=== PATIENT | female | born 1930 | race Caucasian/White ===

== ENCOUNTER 2016-09-08 09:55 | Inpatient (IN) | payer MEDICARE, OTHER ==
[2016-09-08] MEDS ORDERED: IPRATROPIUM-ALBUTEROL 3 ML NEB INHALATION STA (10:28)
--- NOTE | 2016-09-08 10:28 | ED ---
General Adult HPI - General Chief complaint: Shortness of Breath Stated complaint: CRISTAL Time Seen by Provider: 09/08/16 10:00 Source: patient, EMS, RN notes reviewed Mode of arrival: EMS Limitations: no limitations - History of Present Illness Initial comments: This is an 85-year-old female presents emergency department with past medical history significant for high blood pressure and coronary artery disease. Patient comes in today stating for the last week she's been short of breath. Patient states the shortness of breath gets worse when she lays flat. Patient states she's had no cough she's had no chest pain she denies any palpitations. Patient denies any recent fever or chills. Patient denies any abdominal pain patient denies nausea vomiting or diarrhea. Patient denies any back pain. Patient denies any leg swelling or calf pain. Patient denies any recent trips or travel. Patient denies any lightheadedness dizziness or near syncopal episode. - Related Data Home Medications Medication Instructions Recorded Confirmed Cetirizine HCl [Zyrtec] 10 mg PO HS 07/08/14 03/03/16 Ranitidine HCl [Zantac] 300 mg PO HS 07/08/14 03/03/16 Acetaminophen [Tylenol] 1,000 mg PO Q6H PRN 02/28/16 03/03/16 Omeprazole 40 mg PO PC-SUPPER 02/28/16 03/03/16 Previous Rx's Medication Instructions Recorded Aspirin 81 mg PO DAILY #30 chew 03/06/16 Atenolol [Tenormin] 25 mg PO BID #60 tab 03/06/16 Atorvastatin [Lipitor] 40 mg PO DAILY #30 tab 03/06/16 Clopidogrel [Plavix] 75 mg PO DAILY #30 tab 03/06/16 Lisinopril [Zestril] 10 mg PO HS #30 tab 03/06/16 Nitroglycerin Sl Tabs [Nitrostat] 0.4 mg SUBLINGUAL Q5M PRN #25 tab 03/06/16 amLODIPine [Norvasc] 10 mg PO DAILY #30 tab 03/06/16 Allergies Allergy/AdvReac Type Severity Reaction Status Date / Time soy Allergy Diarrhea Verified 09/08/16 10:03 Review of Systems ROS Statement: Those systems with pertinent positive or pertinent negative responses have been documented in the HPI. ROS Other: All systems not noted in ROS Statement are negative. Past Medical History Past Medical History: GERD/Reflux, Hypertension, Osteoarthritis (OA) Additional Past Medical History / Comment(s): Osteoarthritis spine and R hip-pt was scheduled for total R hip on 03/06/16, RT POSTERIOR HIP LIPOMA, SEASONAL ALLERGIES History of Any Multi-Drug Resistant Organisms: None Reported Past Surgical History: Appendectomy, Cholecystectomy, Heart Catheterization With Stent, Hernia Repair, Tonsillectomy Additional Past Surgical History / Comment(s): Pt states she had a cardiac stent about 15 yrs ago, LEFT BREAST benign BX, MALCOLM CATARACTS with lens implants , colonoscopy-normal, R inguinal hernia repairs. Past Anesthesia/Blood Transfusion Reactions: Postoperative Nausea & Vomiting ( PONV) Additional Past Anesthesia/Blood Transfusion Reaction / Comment(s): Pt now states that after cardiac stent she went into "shock". Date of Last Stent Placement:: 2000? Past Psychological History: No Psychological Hx Reported Additional Psychological History / Comment(s): Pt resides alone. She has a cane. She drives. Smoking Status: Former smoker Past Alcohol Use History: None Reported Additional Past Alcohol Use History / Comment(s): Pt started smoking in 1946 and quit in 1995. She smoked less than a ppd. Past Drug Use History: None Reported - Past Family History Mother Family Medical History: No Reported History Father Family Medical History: Myocardial Infarction ([place]) Additional Family Medical History / Comment(s): Father of a [place] at the age of 81 yrs. General Exam - General Exam Comments Initial Comments: GENERAL: Patient is well-developed and well-nourished. Patient is nontoxic and well- hydrated and is in mild distress. ENT: Neck is soft and supple. No significant lymphadenopathy is noted. Oropharynx is clear. Moist mucous membranes. Neck has full range of motion without eliciting any pain. EYES: The sclera were anicteric and conjunctiva were pink and moist. Extraocular movements were intact and pupils were equal round and reactive to light. Eyelids were unremarkable. PULMONARY: Patient has expiratory wheezing. CARDIOVASCULAR: There is a regular rate and rhythm without any murmurs gallops or rubs. ABDOMEN: Soft and nontender with normal bowel sounds. No palpable organomegaly was noted. There is no palpable pulsatile mass. SKIN: Skin is clear with no lesions or rashes and otherwise unremarkable. NEUROLOGIC: Patient is alert and oriented x3. Cranial nerves II through XII are grossly intact. Motor and sensory are also intact. Normal speech, volume and content. Symmetrical smile. MUSCULOSKELETAL: Normal extremities with adequate strength and full range of motion. No lower extremity swelling or edema. No calf tenderness. LYMPHATICS: No significant lymphadenopathy is noted PSYCHIATRIC: Normal psychiatric evaluation. Normal interpersonal interactions appears functionally intact in deals appropriately with others. No signs of depression. No signs of anxiety. Limitations: no limitations Course Vital Signs 09/08/16 09/08/16 09/08/16 10:00 10:18 11:00 Temperature 99.0 F Pulse Rate 76 74 Respiratory 18 18 Rate Blood Pressure 218/93 O2 Sat by Pulse 95 Oximetry 09/08/16 11:03 Temperature Pulse Rate 77 Respiratory 18 Rate Blood Pressure 213/91 O2 Sat by Pulse 92 L Oximetry Medical Decision Making - Medical Decision Making EKG shows normal sinus rhythm at 71 bpm OR interval is 176 QRS is 78 QT interval 418 QTC is 454. Patient's EKG shows no ST segment elevation or depression or T wave abnormalities are noted. Chest x-ray shows acute pulmonary edema. Gave the patient Lasix nitro paste. I gave the patient hydralazine for the blood pressure as well. - Lab Data Result diagrams: 09/08/16 10:15 09/08/16 10:15 Lab Results 09/08/16 09/08/16 09/08/16 Range/Units 10:15 10:15 10:15 WBC 6.2 (3.8-10.6) k/uL RBC 4.00 (3.80-5.40) m/uL Hgb 10.5 L (11.4-16.0) gm/dL Hct 34.0 (34.0-46.0) % MCV 85.0 (80.0-100.0) fL MCH 26.3 (25.0-35.0) pg MCHC 30.9 L (31.0-37.0) g/dL RDW 12.9 (11.5-15.5) % Plt Count 195 (150-450) k/uL Neutrophils % 72 % Lymphocytes % 17 % Monocytes % 6 % Eosinophils % 2 % Basophils % 0 % Neutrophils # 4.5 (1.3-7.7) k/uL Lymphocytes # 1.1 (1.0-4.8) k/uL Monocytes # 0.4 (0-1.0) k/uL Eosinophils # 0.1 (0-0.7) k/uL Basophils # 0.0 (0-0.2) k/uL Hypochromasia Moderate PT (9.0-12.0) sec INR (<1.1) APTT (22.0-30.0) sec D-Dimer (<0.60) mg/L FEU Sodium 143 (137-145) mmol/L Potassium 4.1 (3.5-5.1) mmol/L Chloride 108 H (98-107) mmol/L Carbon Dioxide 24 (22-30) mmol/L Anion Gap 11 mmol/L BUN 18 H (7-17) mg/dL Creatinine 1.06 H (0.52-1.04) mg/dL Est GFR (MDRD) Af Amer 59 (>60 ml/min/1.73 sqM) Est GFR (MDRD) Non-Af 49 (>60 ml/min/1.73 sqM) Glucose 93 (74-99) mg/dL Calcium 8.8 (8.4-10.2) mg/dL Magnesium 2.1 (1.6-2.3) mg/dL Total Bilirubin 0.6 (0.2-1.3) mg/dL AST 20 (14-36) U/L ALT 22 (9-52) U/L Alkaline Phosphatase 72 (38-126) U/L Total Creatine Kinase 55 (30-135) U/L CK-MB (CK-2) 0.9 (0.0-2.4) ng/mL CK-MB (CK-2) Rel Index 1.6 Troponin I <0.012 (0.000-0.034) ng/mL NT-Pro-B Natriuret Pep pg/mL Total Protein 6.4 (6.3-8.2) g/dL Albumin 3.7 (3.5-5.0) g/dL 09/08/16 09/08/16 Range/Units 10:15 10:15 WBC (3.8-10.6) k/uL RBC (3.80-5.40) m/uL Hgb (11.4-16.0) gm/dL Hct (34.0-46.0) % MCV (80.0-100.0) fL MCH (25.0-35.0) pg MCHC (31.0-37.0) g/dL RDW (11.5-15.5) % Plt Count (150-450) k/uL Neutrophils % % Lymphocytes % % Monocytes % % Eosinophils % % Basophils % % Neutrophils # (1.3-7.7) k/uL Lymphocytes # (1.0-4.8) k/uL Monocytes # (0-1.0) k/uL Eosinophils # (0-0.7) k/uL Basophils # (0-0.2) k/uL Hypochromasia PT 10.1 (9.0-12.0) sec INR 1.0 (<1.1) APTT 22.9 (22.0-30.0) sec D-Dimer 0.81 H (<0.60) mg/L FEU Sodium (137-145) mmol/L Potassium (3.5-5.1) mmol/L Chloride (98-107) mmol/L Carbon Dioxide (22-30) mmol/L Anion Gap mmol/L BUN (7-17) mg/dL Creatinine (0.52-1.04) mg/dL Est GFR (MDRD) Af Amer (>60 ml/min/1.73 sqM) Est GFR (MDRD) Non-Af (>60 ml/min/1.73 sqM) Glucose (74-99) mg/dL Calcium (8.4-10.2) mg/dL Magnesium (1.6-2.3) mg/dL Total Bilirubin (0.2-1.3) mg/dL AST (14-36) U/L ALT (9-52) U/L Alkaline Phosphatase (38-126) U/L Total Creatine Kinase (30-135) U/L CK-MB (CK-2) (0.0-2.4) ng/mL CK-MB (CK-2) Rel Index Troponin I (0.000-0.034) ng/mL NT-Pro-B Natriuret Pep 3400 pg/mL Total Protein (6.3-8.2) g/dL Albumin (3.5-5.0) g/dL Critical Care Time Critical Care Time: Yes Total Critical Care Time: 35 Disposition Clinical Impression: Hypertensive urgency, Acute pulmonary edema Disposition: ADMITTED IP TO THIS [facility] Time of Disposition: 11:39
[2016-09-08 10:45] LABS: Basophils % (A) 0 %; CH 25.9; CHCM 30.6; Eosinophils # (A) 0.1 k/uL (0-0.7); Eosinophils % (A) 2 %; HDW 2.91; HGB 10.5 gm/dL (11.4-16.0); Hypochromasia Moderate; Luc # (Auto) 0.17; Luc % (Auto) 3; Lymphocytes # (A) 1.1 k/uL (1.0-4.8); Lymphocytes % (A) 17 %; MCH 26.3 pg (25.0-35.0); MCHC 30.9 g/dL (31.0-37.0); Monocytes # (A) 0.4 k/uL (0-1.0); Monocytes % (A) 6 %; Neutrophils # (A) 4.5 k/uL (1.3-7.7); Neutrophils % (A) 72 %; RDW 12.9 % (11.5-15.5); WBC 6.2 k/uL (3.8-10.6); WBC (Perox) 6.71
[2016-09-08 10:53] LABS: Calcium 8.8 mg/dL (8.4-10.2); Magnesium 2.1 mg/dL (1.6-2.3); Potassium 4.1 mmol/L (3.5-5.1); Total Bilirubin 0.6 mg/dL (0.2-1.3); Total Protein 6.4 g/dL (6.3-8.2)
--- NOTE | 2016-09-08 10:54 | XR ---
EXAMINATION TYPE: XR chest 2V DATE OF EXAM: 09/08/2016 10:48 AM COMPARISON: 06/22/2012 HISTORY: Shortness of breath TECHNIQUE: Frontal and lateral views of the chest are obtained. FINDINGS: Scattered senescent parenchymal changes noted. Hyperinflation compatible with COPD. The heart is enlarged. There is pulmonary venous congestion with interstitial edema. Small effusions noted on the lateral projection. Mediastinal structures are stable and grossly unremarkable. No evidence for hilar prominence. Degenerative changes dorsal spine. IMPRESSION: 1. Mild congestive failure with interstitial edema
[2016-09-08 10:58] LABS: Partial Thromboplastin Time 22.9 sec (22.0-30.0); Prothrombin Time 10.1 sec (9.0-12.0)
[2016-09-08] MEDS ORDERED: hydrALAZINE HCL 20 MG/ML 1 ML VIAL IVP STA (11:00)
[2016-09-08 11:09] LABS: Creatine Kinase 55 U/L (30-135)
[2016-09-08 11:20] LABS: Creatine Kinase MB 0.9 ng/mL (0.0-2.4); Troponin I <0.012 ng/mL (0.000-0.034)
[2016-09-08] MEDS ORDERED: FUROSEMIDE 10 MG/ML 4 ML VIAL IV STA (11:38)
[2016-09-08] MEDS ORDERED: NITROGLYCERIN OINT 1 INCH/GM PACKET TOPICAL STA (11:38)
[2016-09-08] MEDS ORDERED: FUROSEMIDE 10 MG/ML 4 ML VIAL IV SCH (11:45)
[2016-09-08] MEDS ORDERED: ENALAPRILAT 1.25 MG/ML 1 ML VIAL IVP STA (11:46)
[2016-09-08] MEDS ORDERED: HYDROcodone/APAP 7.5-325MG 1 EACH TAB PO PRN (15:09)
[2016-09-08] MEDS ORDERED: ACETAMINOPHEN TAB 325 MG TAB PO PRN (15:10)
[2016-09-08] MEDS ORDERED: ONDANSETRON 4 MG/2 ML VIAL IVP PRN (15:10)
[2016-09-08] MEDS ORDERED: Potassium Replacement Protocol 1 EACH MISC MISCELLANE PRN (15:11)
[2016-09-08] MEDS ORDERED: Magnesium Replacement Protocol 1 EACH MISC MISCELLANE PRN (15:11)
[2016-09-08] MEDS ORDERED: amLODIPine 5 MG TAB PO SCH (16:00)
[2016-09-08] MEDS ORDERED: ASPIRIN 81 MG CHEW PO SCH (16:00)
--- NOTE | 2016-09-08 16:13 | P.HPIM ---
History of Present Illness H&P Date: 09/08/16 Chief Complaint: Shortness of breath This is a 85-year-old female with past medical history noted below significant for coronary artery disease, essential hypertension, and ischemic cardiomyopathy with known ejection fraction of 40% who presented to the emergency room with worsening shortness of breath. Patient said that for the past few days she is having difficulty breathing. She said that her problems get worse when she lay flat in bed. She denies any fevers or chills. no productive cough. No worsening lower extremity swelling. Patient called EMS and was brought to the emergency room. On presentation, she was found to have a systolic blood pressure greater than 200. She was given IV enalapril and a chest x-ray showed evidence of pulmonary congestion and edema. She was started on IV Lasix and was admitted to the hospital for further evaluation. Patient reports compliance with her blood pressure medication at home. She is currently taking atenolol 25 g twice daily. She said that she was told to stop amlodipine and lisinopril by her doctors since her last hospitalization in February. She denies any headache or lightheadedness. Last blood pressure reading was 136/90 awaiting the nurse to enter the number in the computer. Review of Systems Review of system: 14 points review of systems were obtained and were negative except to what were mentioned in the HPI. Past Medical History Past Medical History: GERD/Reflux, Hypertension, Osteoarthritis (OA) Additional Past Medical History / Comment(s): Osteoarthritis spine and R hip-pt was scheduled for total R hip on 03/06/16, RT POSTERIOR HIP LIPOMA, SEASONAL ALLERGIES History of Any Multi-Drug Resistant Organisms: None Reported Past Surgical History: Appendectomy, Cholecystectomy, Heart Catheterization With Stent, Hernia Repair, Tonsillectomy Additional Past Surgical History / Comment(s): Pt states she had a cardiac stent about 15 yrs ago, LEFT BREAST benign BX, MALCOLM CATARACTS with lens implants , colonoscopy-normal, R inguinal hernia repairs. Past Anesthesia/Blood Transfusion Reactions: Postoperative Nausea & Vomiting ( PONV) Additional Past Anesthesia/Blood Transfusion Reaction / Comment(s): Pt now states that after cardiac stent she went into "shock". Date of Last Stent Placement:: 2000? Past Psychological History: No Psychological Hx Reported Additional Psychological History / Comment(s): Pt resides alone. She has a cane. She drives. Smoking Status: Former smoker Past Alcohol Use History: None Reported Additional Past Alcohol Use History / Comment(s): Pt started smoking in 1946 and quit in 1995. She smoked less than a ppd. Past Drug Use History: None Reported - Past Family History Mother Family Medical History: No Reported History Father Family Medical History: Myocardial Infarction ([place]) Additional Family Medical History / Comment(s): Father of a [place] at the age of 81 yrs. Medications and Allergies Home Medications Medication Instructions Recorded Confirmed Type Cetirizine HCl [Zyrtec] 10 mg PO HS 07/08/14 09/08/16 History Ranitidine HCl [Zantac] 300 mg PO HS 07/08/14 09/08/16 History Atorvastatin [Lipitor] 40 mg PO HS 09/08/16 09/08/16 History HYDROcodone/APAP 7.5-325MG [[place] 1 tab PO BID PRN 09/08/16 09/08/16 History 7.5-325] Naproxen Sodium [Aleve] 220 mg PO DAILY 09/08/16 09/08/16 History Allergies Allergy/AdvReac Type Severity Reaction Status Date / Time soy Allergy Diarrhea Verified 09/08/16 12:14 Physical Exam Vitals: Vital Signs Temp Pulse Resp BP Pulse Ox 09/08/16 12:52 201/84 09/08/16 12:25 82 20 209/84 100 09/08/16 11:55 99.0 F 79 18 181/87 97 Intake and Output 09/08/16 09/08/16 09/08/16 06:59 14:59 22:59 Other: # Voids 1 General: The patient is awake and alert, in no distress, and does not appear acutely ill. Eye: extra-ocular movements are intact; there is normal conjunctiva bilaterally. . Neck: The neck is supple, there is no tenderness or JVD. Cardiovascular: Normal S1-S2, no S3-S4, no murmurs. Respiratory: Lungs with bibasilar crackles Gastrointestinal: Abdomen is soft, nontender, nondistended, with no organomegaly. . Musculoskeletal: Normal ROM, no tenderness, There is no pedal edema. Neurological: There are no obvious motor or sensory deficits. Speech is normal. Skin: Skin is warm and dry and no rashes or lesions are noted. Results CBC & Chem 7: 09/08/16 10:15 03/03/17 10:15 Assessment and Plan Plan: 1. Hypertensive urgency 2. Acute systolic heart failure exacerbation with known ejection fraction of 40 %. Continue IV Lasix. Monitor electrolytes closely. 3. Ischemic cardiomyopathy 4. Coronary artery disease 5. Essential hypertension: Blood pressure not well controlled 6. Mixed hyperlipidemia This is a 85-year-old female who presented to the hospital with worsening shortness of breath. She was found to have acute systolic heart failure exacerbation most likely precipitated by uncontrolled blood pressure. We will resume home blood pressure medication and continue to monitor closely. Continue IV diuresis for now. Monitor electrolytes closely. Repeat chest x- ray within the next day or 2. Patient was reassured. All her questions answered to her satisfaction.
[2016-09-08] MEDS: FUROSEMIDE 10 MG/ML 4 ML VIAL IV SCH (21:08)
[2016-09-08] MEDS: NITROGLYCERIN OINT 1 INCH/GM PACKET TOPICAL SCH ×2 (21:08→21:22)
[2016-09-08] MEDS: ATORVASTATIN 40 MG TAB PO SCH (21:08)
[2016-09-08] MEDS: ATENOLOL 25 MG TAB PO SCH (21:08)
[2016-09-08] MEDS: FAMOTIDINE 20 MG TAB PO SCH (21:08)
[2016-09-08] MEDS: HEPARIN SODIUM,PORCINE 5,000 UNIT/ML 1 ML VIAL SQ SCH (21:22)
[2016-09-08] MEDS ORDERED: NAPROXEN 250 MG TAB PO SCH (22:30)
[2016-09-09 06:34] LABS: Basophils % (A) 1 %; CH 26.4; CHCM 31.7; Eosinophils # (A) 0.1 k/uL (0-0.7); Eosinophils % (A) 1 %; HCT 30.9 % (34.0-46.0); HDW 2.91; HGB 9.8 gm/dL (11.4-16.0); Hypochromasia Slight; Luc # (Auto) 0.21; Luc % (Auto) 3; Lymphocytes # (A) 1.1 k/uL (1.0-4.8); Lymphocytes % (A) 17 %; MCH 26.6 pg (25.0-35.0); MCHC 31.8 g/dL (31.0-37.0); MCV 83.4 fL (80.0-100.0); Mean Platelet Volume 9.2; Monocytes # (A) 0.5 k/uL (0-1.0); Monocytes % (A) 8 %; Neutrophils # (A) 4.5 k/uL (1.3-7.7); Neutrophils % (A) 70 %; RDW 13.2 % (11.5-15.5); WBC 6.4 k/uL (3.8-10.6); WBC (Perox) 6.85
[2016-09-09 06:45] LABS: Calcium 9.1 mg/dL (8.4-10.2); Magnesium 1.9 mg/dL (1.6-2.3); Potassium 3.5 mmol/L (3.5-5.1)
[2016-09-09] MEDS ORDERED: NAPROXEN 250 MG TAB PO SCH (09:00)
[2016-09-09] MEDS: CLOPIDOGREL 75 MG TAB PO SCH (09:16)
[2016-09-09] MEDS: ASPIRIN 81 MG CHEW PO SCH (09:16)
[2016-09-09] MEDS: FUROSEMIDE 10 MG/ML 4 ML VIAL IV SCH (09:16)
[2016-09-09] MEDS: ATENOLOL 25 MG TAB PO SCH ×2 (09:16→21:23)
[2016-09-09] MEDS: HEPARIN SODIUM,PORCINE 5,000 UNIT/ML 1 ML VIAL SQ SCH ×2 (09:17→21:24)
[2016-09-09] MEDS: NITROGLYCERIN OINT 1 INCH/GM PACKET TOPICAL SCH ×4 (09:18→23:04)
--- NOTE | 2016-09-09 12:00 | P.CRDCN ---
History of Present Illness Consult date: 09/09/16 Requesting physician: Kory Ochoa Consult reason: shortness of breath Chief complaint: Shortness of breath History of present illness: This is a pleasant 85-year-old female who follows with Dr. Carter in the office, with known history of coronary artery disease, prior non-Q-wave myocardial infarction who underwent stenting of the LAD in February of last year at that time patient was also noted to have a 50-60% lesion in the right coronary artery. She has history also of hypertension, ischemic cardiomyopathy, echo performed in February of last year revealed an ejection fraction of 40-45%. Hyperlipidemia, GERD. She presents to the hospital with symptoms of sudden onset of shortness of breath. According to the patient, the shortness of breath awoke her from sleep yesterday morning. Prior to that she states that her breathing was relatively normal. Blood pressure on arrival here , 218/93, heart rate 76, temperature 99.0. Blood pressure this morning 138/68 with a heart rate of 60. Laboratory data, hemoglobin 9.8, platelet count 185, potassium 3.5, d-dimer 0.81, BUN 20, creatinine 1.3, up from 1.06 yesterday. BNP level 3400, troponin 0.012. S2 x-ray shows mild congestive heart failure with interstitial edema. EKG shows a normal sinus rhythm with no acute changes. Past Medical History Past Medical History: GERD/Reflux, Hypertension, Osteoarthritis (OA) Additional Past Medical History / Comment(s): Osteoarthritis spine and R hip-pt was scheduled for total R hip on 03/06/16, RT POSTERIOR HIP LIPOMA, SEASONAL ALLERGIES History of Any Multi-Drug Resistant Organisms: None Reported Past Surgical History: Appendectomy, Cholecystectomy, Heart Catheterization With Stent, Hernia Repair, Tonsillectomy Additional Past Surgical History / Comment(s): Pt states she had a cardiac stent about 15 yrs ago, LEFT BREAST benign BX, MALCOLM CATARACTS with lens implants , colonoscopy-normal, R inguinal hernia repairs. Past Anesthesia/Blood Transfusion Reactions: Postoperative Nausea & Vomiting ( PONV) Additional Past Anesthesia/Blood Transfusion Reaction / Comment(s): Pt now states that after cardiac stent she went into "shock". Date of Last Stent Placement:: 2000? Past Psychological History: No Psychological Hx Reported Additional Psychological History / Comment(s): Pt resides alone. She has a cane. She drives. Smoking Status: Former smoker Past Alcohol Use History: None Reported Additional Past Alcohol Use History / Comment(s): Pt started smoking in 1946 and quit in 1995. She smoked less than a ppd. Past Drug Use History: None Reported Additional Drug Use History / Comment(s): Smoked 30-40 years, quit 20 years ago - Past Family History Mother Family Medical History: No Reported History Father Family Medical History: Myocardial Infarction ([place]) Additional Family Medical History / Comment(s): Father of a [place] at the age of 81 yrs. Medications and Allergies Home Medications Medication Instructions Recorded Confirmed Type Cetirizine HCl [Zyrtec] 10 mg PO HS 07/08/14 09/08/16 History Ranitidine HCl [Zantac] 300 mg PO HS 07/08/14 09/08/16 History Atorvastatin [Lipitor] 40 mg PO HS 09/08/16 09/08/16 History HYDROcodone/APAP 7.5-325MG [[place] 1 tab PO BID PRN 09/08/16 09/08/16 History 7.5-325] Naproxen Sodium [Aleve] 220 mg PO DAILY 09/08/16 09/08/16 History Allergies Allergy/AdvReac Type Severity Reaction Status Date / Time soy Allergy Diarrhea Verified 09/08/16 12:14 Physical Exam Vitals: Vital Signs Temp Pulse Pulse Resp BP BP Pulse Ox 09/09/16 04:00 97.9 F 66 16 138/69 94 L 09/09/16 00:00 98.0 F 74 20 110/53 93 L 09/08/16 20:00 97.2 F L 76 20 164/68 92 L 09/08/16 15:54 137/61 09/08/16 12:52 201/84 09/08/16 12:25 82 20 209/84 100 09/08/16 12:09 97.9 F 91 18 137/61 98 09/08/16 11:55 99.0 F 79 18 181/87 97 Intake and Output 09/08/16 09/09/16 09/09/16 22:59 06:59 14:59 Intake Total 180 100 Output Total 1500 200 Balance 180 -1500 -100 Intake: Oral 180 100 Output: Urine 1500 200 Other: Voiding Method Toilet Toilet # Voids 4 1 Weight 56.9 kg PHYSICAL EXAMINATION: HEENT: Head is atraumatic, normocephalic. Pupils equal, round. Neck is supple. There is no elevated jugular venous pressure. HEART EXAMINATION: Heart S1 and S2 systolic murmur is heard CHEST EXAMINATION: Lungs are clear with mild diminished air entry to bilateral bases ABDOMEN: Soft, nontender. Bowel sounds are heard. No organomegaly noted. EXTREMITIES: 2+ peripheral pulses with no evidence of peripheral edema and no calf tenderness noted. NEUROLOGIC patient is awake, alert and oriented -3. . Results 09/09/16 05:46 09/09/16 05:44 CBC 09/09/16 Range/Units 05:46 WBC 6.4 (3.8-10.6) k/uL RBC 3.70 L (3.80-5.40) m/uL Hgb 9.8 L (11.4-16.0) gm/dL Hct 30.9 L (34.0-46.0) % Plt Count 185 (150-450) k/uL Comprehensive Metabolic Panel 09/09/16 Range/Units 05:44 Sodium 140 (137-145) mmol/L Potassium 3.5 (3.5-5.1) mmol/L Chloride 100 (98-107) mmol/L Carbon Dioxide 29 (22-30) mmol/L BUN 20 H (7-17) mg/dL Creatinine 1.30 H (0.52-1.04) mg/dL Glucose 94 (74-99) mg/dL Calcium 9.1 (8.4-10.2) mg/dL Current Medications Generic Name Dose Route Start Last Admin Trade Name Freq PRN Reason Stop Dose Admin Acetaminophen 650 mg 09/08/16 15:10 Tylenol Tab PO Q6HR PRN Fever and/ or Pain Hydrocodone Bitart/Acetaminophen 1 each 09/09/16 11:33 [place] 5-325 PO Q4HR PRN Pain Aspirin 81 mg 09/09/16 09:00 09/09/16 09:16 Aspirin PO 81 mg DAILY SANTANA Administration Atenolol 25 mg 09/08/16 21:00 09/09/16 09:16 Tenormin PO 25 mg BID SANTANA Administration Atorvastatin Calcium 40 mg 09/08/16 21:00 09/08/16 21:08 Lipitor PO 40 mg HS SANTANA Administration Clopidogrel Bisulfate 75 mg 09/09/16 09:00 09/09/16 09:16 Plavix PO 75 mg DAILY SANTANA Administration Famotidine 40 mg 09/08/16 21:00 09/08/16 21:08 Pepcid PO 40 mg HS SANTANA Administration Furosemide 20 mg 09/10/16 09:00 Lasix PO DAILY SANTANA Heparin Sodium (Porcine) 5,000 unit 09/08/16 21:00 09/09/16 09:17 Heparin SQ 5,000 unit Q12HR SANTANA Administration Miscellaneous Information 1 each 09/08/16 15:11 Magnesium Per Protocol MISCELLANE DAILY PRN Per Protocol Protocol Miscellaneous Information 1 each 09/08/16 15:11 Potassium Per Protocol MISCELLANE DAILY PRN Per Protocol Protocol Nitroglycerin 1 inch 09/08/16 18:00 09/09/16 09:18 Nitro-Bid Oint TOPICAL Not Given QID SANTANA Ondansetron HCl 4 mg 09/08/16 15:10 Zofran IVP Q6HR PRN Nausea And Vomiting Intake and Output 09/08/16 09/09/16 09/09/16 22:59 06:59 14:59 Intake Total 180 100 Output Total 1500 200 Balance 180 -1500 -100 Intake: Oral 180 100 Output: Urine 1500 200 Other: Voiding Method Toilet Toilet # Voids 4 1 Weight 56.9 kg 09/09/16 05:46 09/09/16 05:44 EKG Interpretations (text) EKG shows normal sinus rhythm with no acute changes Assessment and Plan Plan: Assessment and plan #1 Systolic congestive heart failure acute on chronic, most recent echocardiogram with Doppler study was performed in February of last year which revealed an ejection fraction of 40-45%. #2 hypertensive urgency #3 ischemic cardiomyopathy #4 known history of coronary artery disease with prior LAD stent in February of last year. # 5 hyperlipidemia #6 anemia Plan We will obtain an echocardiogram with Doppler study. Continue IV Lasix. Replace potassium. Monitor creatinine closely. Add small dose BENITO inhibitor. Discontinue IV BENITO inhibitor. Check lytes BUN creatinine CBC in the morning. Monitor intake and output along with daily weights. Further recommendations to follow DNP note has been reviewed, I agree with a documented findings and plan of care. Patient was seen and examined.
[2016-09-09] MEDS: FUROSEMIDE 10 MG/ML 2 ML VIAL IV SCH ×2 (12:20→21:24)
--- NOTE | 2016-09-09 13:12 | P.PN ---
Subjective Principal diagnosis: CHF exacerbation Patient is doing better today. Shortness of breath is improving. Objective - Vital Signs Vital signs: Vital Signs Temp 97.9 F 09/09/16 04:00 Pulse 66 09/09/16 04:00 Resp 18 09/09/16 04:00 BP 138/69 09/09/16 04:00 Pulse Ox 94 L 09/09/16 04:00 Intake & Output 09/08/16 09/09/16 09/09/16 18:59 06:59 18:59 Intake Total 180 100 Output Total 1500 400 Balance 180 -1500 -300 Weight 58.2 kg 56.9 kg Intake: Oral 180 100 Output: Urine 1500 400 Other: Voiding Method Toilet Toilet # Voids 4 1 - Exam General: The patient is awake and alert, in no distress Eye: there is normal conjunctiva bilaterally. Neck: The neck is supple, there is no JVD. Cardiovascular: Normal S1-S2, no S3-S4, no murmurs. Respiratory: Lungs clear to auscultation bilaterally Gastrointestinal: Abdomen is soft, nontender Musculoskeletal: There is no pedal edema. Neurological:. Speech is normal. Skin: Skin is warm and dry - Labs CBC & Chem 7: 09/09/16 05:46 09/09/16 05:44 Labs: Abnormal Lab Results - Last 24 Hours (Table) 09/09/16 09/09/16 Range/Units 05:44 05:46 RBC 3.70 L (3.80-5.40) m/uL Hgb 9.8 L (11.4-16.0) gm/dL Hct 30.9 L (34.0-46.0) % BUN 20 H (7-17) mg/dL Creatinine 1.30 H (0.52-1.04) mg/dL Assessment and Plan Plan: 1. Hypertensive urgency 2. Acute systolic heart failure exacerbation with known ejection fraction of 40 %. Continue IV Lasix. Monitor electrolytes closely. 3. Ischemic cardiomyopathy 4. Coronary artery disease 5. Essential hypertension: Blood pressure not well controlled 6. Mixed hyperlipidemia This is a 85-year-old female who presented to the hospital with worsening shortness of breath. She was found to have acute systolic heart failure exacerbation most likely precipitated by uncontrolled blood pressure. Blood pressure is back to normal range with home medication. Continue IV diuresis for now. Monitor electrolytes closely. Repeat chest x-ray for follow-up. Anticipate discharge in the next day or 2.
[2016-09-09 13:48] VITALS: BMI 22.9
[2016-09-09] MEDS ORDERED: Potassium Replacement Protocol 1 EACH MISC MISCELLANE PRN (21:15)
[2016-09-09] MEDS: ATORVASTATIN 40 MG TAB PO SCH (21:23)
[2016-09-09] MEDS: FAMOTIDINE 20 MG TAB PO SCH (21:24)
[2016-09-09] MEDS ORDERED: POTASSIUM CHLORIDE ER 20 MEQ TAB.ER PO SCH (22:00)
[2016-09-10 06:18] LABS: Basophils % (A) 1 %; CH 26.3; CHCM 31.3; Eosinophils # (A) 0.2 k/uL (0-0.7); Eosinophils % (A) 3 %; HCT 35.3 % (34.0-46.0); Hypochromasia Slight; Luc # (Auto) 0.21; Luc % (Auto) 4; Lymphocytes # (A) 1.4 k/uL (1.0-4.8); Lymphocytes % (A) 23 %; MCH 26.1 pg (25.0-35.0); MCV 84.2 fL (80.0-100.0); Mean Platelet Volume 8.5; Monocytes # (A) 0.5 k/uL (0-1.0); Monocytes % (A) 9 %; Neutrophils # (A) 3.7 k/uL (1.3-7.7); Neutrophils % (A) 62 %; WBC (Perox) 6.03
[2016-09-10 06:31] LABS: Calcium 9.4 mg/dL (8.4-10.2); Magnesium 1.9 mg/dL (1.6-2.3); Potassium 3.9 mmol/L (3.5-5.1)
[2016-09-10] MEDS ORDERED: LISINOPRIL 5 MG TAB PO SCH ×2 (09:00→12:00)
[2016-09-10] MEDS ORDERED: FUROSEMIDE 20 MG TAB PO SCH (09:00)
--- NOTE | 2016-09-10 09:02 | XR ---
EXAMINATION TYPE: XR chest 2V DATE OF EXAM: 09/10/2016 7:11 AM COMPARISON: NONE INDICATION: Difficulty breathing TECHNIQUE: Single frontal view of the chest is obtained. FINDINGS: The heart size is normal. The pulmonary vasculature is normal. This has improved from the comparison. Posterior pleural effusion is present IMPRESSION: 1. No acute pulmonary process. 2. Resolution previous pulmonary edema.
[2016-09-10] MEDS: ATENOLOL 25 MG TAB PO SCH ×2 (09:03→20:21)
[2016-09-10] MEDS: ASPIRIN 81 MG CHEW PO SCH (09:03)
[2016-09-10] MEDS: CLOPIDOGREL 75 MG TAB PO SCH (09:03)
[2016-09-10] MEDS: NITROGLYCERIN OINT 1 INCH/GM PACKET TOPICAL SCH ×4 (09:04→22:57)
[2016-09-10] MEDS: HEPARIN SODIUM,PORCINE 5,000 UNIT/ML 1 ML VIAL SQ SCH ×2 (09:04→20:21)
[2016-09-10] MEDS: FUROSEMIDE 10 MG/ML 2 ML VIAL IV SCH (09:26)
--- NOTE | 2016-09-10 12:57 | P.PN ---
Subjective Principal diagnosis: CHF exacerbation Patient is doing better today. Shortness of breath is improving. Objective - Vital Signs Vital signs: Vital Signs Temp 97.9 F 09/10/16 08:50 Pulse 65 09/10/16 08:50 Resp 18 09/10/16 08:50 BP 140/58 09/10/16 09:33 Pulse Ox 99 09/10/16 08:50 Intake & Output 09/09/16 09/10/16 09/10/16 18:59 06:59 18:59 Intake Total 460 240 Output Total 400 Balance 60 240 Weight 56.9 kg 55.4 kg Intake: Oral 460 240 Output: Urine 400 Other: Voiding Method Toilet # Voids 1 0 # Bowel Movements 0 - Exam General: The patient is awake and alert, in no distress Eye: there is normal conjunctiva bilaterally. Neck: The neck is supple, there is no JVD. Cardiovascular: Normal S1-S2, no S3-S4, no murmurs. Respiratory: Lungs clear to auscultation bilaterally Gastrointestinal: Abdomen is soft, nontender Musculoskeletal: There is no pedal edema. Neurological:. Speech is normal. Skin: Skin is warm and dry - Labs CBC & Chem 7: 09/10/16 05:49 09/10/16 05:47 Labs: Abnormal Lab Results - Last 24 Hours (Table) 09/10/16 09/10/16 Range/Units 05:47 05:49 Hgb 11.0 L (11.4-16.0) gm/dL BUN 25 H (7-17) mg/dL Creatinine 1.46 H (0.52-1.04) mg/dL Assessment and Plan Plan: 1. Hypertensive urgency 2. Acute systolic heart failure exacerbation with known ejection fraction of 40 % 3. Ischemic cardiomyopathy 4. Coronary artery disease 5. Essential hypertension: Blood pressure not well controlled 6. Mixed hyperlipidemia 7. Acute kidney injury This is a 85-year-old female who presented to the hospital with worsening shortness of breath. She was found to have acute systolic heart failure exacerbation most likely precipitated by uncontrolled blood pressure. Blood pressure is back to normal range with home medication. Patient improved significantly with IV Lasix. Repeat chest x-ray showed improvement in pulmonary edema. Patient had an acute kidney injury related to Lasix use. We' ll hold Lasix for now and hold lisinopril as well. Repeat lab work in the morning. Anticipate discharge home within the next day or 2.
--- NOTE | 2016-09-10 14:15 | P.PN ---
Subjective Principal diagnosis: Shortness of breath This is an 85-year-old female admitted to the hospital with symptoms of sudden onset of shortness of breath likely secondary to hypertension. She was seen and examined this morning, feeling well overall. Breathing is stable, lungs are clear. Objective - Vital Signs Vital signs: Vital Signs Temp 97.9 F 09/10/16 08:50 Pulse 65 09/10/16 08:50 Resp 18 09/10/16 08:50 BP 140/58 09/10/16 09:33 Pulse Ox 99 09/10/16 08:50 Intake & Output 09/09/16 09/10/16 09/10/16 18:59 06:59 18:59 Intake Total 460 480 Output Total 400 Balance 60 480 Weight 56.9 kg 55.4 kg Intake: Oral 460 480 Output: Urine 400 Other: Voiding Method Toilet # Voids 1 0 1 # Bowel Movements 0 - Exam PHYSICAL EXAMINATION: HEENT: Head is atraumatic, normocephalic. Pupils equal, round. Neck is supple. There is no elevated jugular venous pressure. HEART EXAMINATION: S1 and S2 1 systolic murmur is heard. CHEST EXAMINATION: Lungs are clear to auscultation and precussion. No chest wall tenderness is noted on palpation or with deep breathing. ABDOMEN: Soft, nontender. Bowel sounds are heard. No organomegaly noted. EXTREMITIES: 2+ peripheral pulses with no evidence of peripheral edema and no calf tenderness noted. NEUROLOGIC patient is awake, alert and oriented -3. . - Labs CBC & Chem 7: 09/10/16 05:49 09/10/16 05:47 Labs: Abnormal Lab Results - Last 24 Hours (Table) 09/10/16 09/10/16 Range/Units 05:47 05:49 Hgb 11.0 L (11.4-16.0) gm/dL BUN 25 H (7-17) mg/dL Creatinine 1.46 H (0.52-1.04) mg/dL Assessment and Plan Plan: Assessment and plan #1 Systolic congestive heart failure acute on chronic, most recent echocardiogram with Doppler study was performed in February of last year which revealed an ejection fraction of 40-45%. #2 hypertensive urgency #3 ischemic cardiomyopathy #4 known history of coronary artery disease with prior LAD stent in February of last year. # 5 hyperlipidemia #6 anemia Plan Cardiology's perspective, patient may be able to be discharged home once cleared by the primary. We will make her a follow-up appointment with Dr. huber Mckenzie in the office post discharge. DNP note has been reviewed, I agree with a documented findings and plan of care. Patient was seen and examined.
[2016-09-10] MEDS: ATORVASTATIN 40 MG TAB PO SCH (20:20)
[2016-09-10] MEDS: FAMOTIDINE 20 MG TAB PO SCH (20:21)
[2016-09-10] MEDS: HYDROcodone/APAP 5-325MG 1 EACH TAB PO PRN (20:23)
[2016-09-11 07:04] LABS: Basophils % (A) 1 %; CH 26.1; CHCM 31.1; Eosinophils # (A) 0.2 k/uL (0-0.7); Eosinophils % (A) 3 %; HCT 35.4 % (34.0-46.0); HDW 2.73; HGB 10.9 gm/dL (11.4-16.0); Hypochromasia Slight; Luc # (Auto) 0.21; Luc % (Auto) 3; Lymphocytes # (A) 1.6 k/uL (1.0-4.8); Lymphocytes % (A) 25 %; MCH 26.1 pg (25.0-35.0); MCHC 30.9 g/dL (31.0-37.0); MCV 84.4 fL (80.0-100.0); Monocytes # (A) 0.6 k/uL (0-1.0); Monocytes % (A) 10 %; Neutrophils # (A) 3.8 k/uL (1.3-7.7); Neutrophils % (A) 59 %; RBC 4.19 m/uL (3.80-5.40); WBC 6.4 k/uL (3.8-10.6); WBC (Perox) 6.65
[2016-09-11 07:28] LABS: Calcium 9.3 mg/dL (8.4-10.2); Magnesium 2.1 mg/dL (1.6-2.3)
[2016-09-11] MEDS: ATENOLOL 25 MG TAB PO SCH (08:11)
[2016-09-11] MEDS: ASPIRIN 81 MG CHEW PO SCH (08:11)
[2016-09-11] MEDS: CLOPIDOGREL 75 MG TAB PO SCH (08:11)
[2016-09-11] MEDS: NITROGLYCERIN OINT 1 INCH/GM PACKET TOPICAL SCH ×2 (08:12→11:56)
[2016-09-11] MEDS: HEPARIN SODIUM,PORCINE 5,000 UNIT/ML 1 ML VIAL SQ SCH (08:12)
[2016-09-11] MEDS: HYDROcodone/APAP 5-325MG 1 EACH TAB PO PRN (10:09)
--- NOTE | 2016-09-11 12:48 | P.DS ---
Providers Date of admission: 09/08/16 11:39 Expected date of discharge: 09/11/16 Attending physician: Kory Ochoa Primary care physician: Gloria Hutson Hospital Course: 1. Hypertensive urgency 2. Acute systolic heart failure exacerbation with known ejection fraction of 40 % 3. Ischemic cardiomyopathy 4. Coronary artery disease 5. Essential hypertension: Blood pressure not well controlled 6. Mixed hyperlipidemia 7. Acute kidney injury This is a 85-year-old female who presented to the hospital with worsening shortness of breath. She was found to have acute systolic heart failure exacerbation most likely precipitated by uncontrolled blood pressure. Blood pressure is back to normal range with home medication. Patient improved significantly with IV Lasix. Repeat chest x-ray showed improvement in pulmonary edema. Patient had an acute kidney injury related to Lasix use. We'll hold Lasix for now. She will be discharged home in a stable condition. She will follow-up with her primary care physician within the next 2-3 days. She is currently euvolemic. She will need repeat kidney function test and if her creatinine is back to normal may benefit from low-dose Lasix daily. Patient Condition at Discharge: Fair Plan - Discharge Summary Discharge Medication List Cetirizine HCl [Zyrtec] 10 mg PO HS 07/08/14 [History] Ranitidine HCl [Zantac] 300 mg PO HS 07/08/14 [History] Aspirin 81 mg PO DAILY #30 chew 03/06/16 [Rx] Atenolol [Tenormin] 25 mg PO BID #60 tab 03/06/16 [Rx] Clopidogrel [Plavix] 75 mg PO DAILY #30 tab 03/06/16 [Rx] Nitroglycerin Sl Tabs [Nitrostat] 0.4 mg SUBLINGUAL Q5M PRN #25 tab 03/06/16 [Rx ] Atorvastatin [Lipitor] 40 mg PO HS 09/08/16 [History] HYDROcodone/APAP 7.5-325MG [[place] 7.5-325] 1 tab PO BID PRN 09/08/16 [History] Follow up Appointment(s)/Referral(s): Gloria Hutson MD [Primary Care Provider] - 1-2 days Discharge Disposition: HOME SELF-CARE
--- NOTE | 2016-09-11 15:21 | P.PN ---
Subjective Principal diagnosis: Shortness of breath This is an 85-year-old female admitted to the hospital with symptoms of sudden onset of shortness of breath likely secondary to hypertension. She was seen and examined this morning, feeling well overall. Breathing is stable, lungs are clear. Objective - Vital Signs Vital signs: Vital Signs Temp 98.8 F 09/11/16 08:00 Pulse 67 09/11/16 12:00 Resp 18 09/11/16 12:00 BP 129/63 09/11/16 12:00 Pulse Ox 96 09/11/16 12:00 Intake & Output 09/10/16 09/11/16 09/11/16 18:59 06:59 18:59 Intake Total 720 Output Total 300 650 Balance 720 -300 -650 Weight 56.1 kg Intake: Oral 720 Output: Urine 300 650 Other: Voiding Method Toilet # Voids 1 1 # Bowel Movements 0 - Exam PHYSICAL EXAMINATION: HEENT: Head is atraumatic, normocephalic. Pupils equal, round. Neck is supple. There is no elevated jugular venous pressure. HEART EXAMINATION: S1 and S2 1 systolic murmur is heard. CHEST EXAMINATION: Lungs are clear to auscultation and precussion. No chest wall tenderness is noted on palpation or with deep breathing. ABDOMEN: Soft, nontender. Bowel sounds are heard. No organomegaly noted. EXTREMITIES: 2+ peripheral pulses with no evidence of peripheral edema and no calf tenderness noted. NEUROLOGIC patient is awake, alert and oriented -3. . - Labs CBC & Chem 7: 09/11/16 06:29 09/11/16 06:29 Labs: Abnormal Lab Results - Last 24 Hours (Table) 09/11/16 09/11/16 Range/Units 06:29 06:29 Hgb 10.9 L (11.4-16.0) gm/dL MCHC 30.9 L (31.0-37.0) g/dL Carbon Dioxide 31 H (22-30) mmol/L BUN 33 H (7-17) mg/dL Creatinine 1.58 H (0.52-1.04) mg/dL Assessment and Plan Plan: Assessment and plan #1 Systolic congestive heart failure acute on chronic, most recent echocardiogram with Doppler study was performed in February of last year which revealed an ejection fraction of 40-45%. #2 hypertensive urgency #3 ischemic cardiomyopathy #4 known history of coronary artery disease with prior LAD stent in February of last year. # 5 hyperlipidemia #6 anemia Plan Cardiology's perspective, patient may be able to be discharged home once cleared by the primary. We will make her a follow-up appointment with Dr. huber Mckenzie in the office post discharge. DNP note has been reviewed, I agree with a documented findings and plan of care. Patient was seen and examined.
[2016-09-11 15:37] VITALS: BP 123/79; PULSE 62; RESP 17; TEMP 98
--- NOTE | 2016-09-12 10:22 | ECHOF ---
Referral Reason:chf MEASUREMENTS -------- HEIGHT: 157.5 cm WEIGHT: 56.7 kg BP: 138/69 RVIDd: 2.6 cm (< 3.3) IVSd: 1.3 cm (0.6 - 1.1) LVIDd: 3.2 cm (3.9 - 5.3) LVPWd: 1.3 cm (0.6 - 1.1) IVSs: 1.6 cm LVIDs: 2.3 cm LVPWs: 1.9 cm LA Diam: 3.1 cm (2.7 - 3.8) LAESV Index (A-L): 23.89 ml/m Ao Diam: 2.7 cm (2.0 - 3.7) AV Cusp: 1.3 cm (1.5 - 2.6) LA Diam: 3.1 cm (2.7 - 3.8) MV EXCURSION: 11.562 mm (> 18.000) MV EF SLOPE: 63 mm/s (70 - 150) EPSS: 0.2 cm MV E Ridge: 0.94 m/s MV DecT: 290 ms MV A Ridge: 1.17 m/s MV E/A Ratio: 0.81 FINDINGS -------- Sinus rhythm. This was a technically good study. There is mild concentric left ventricular hypertrophy. Overall left ventricular systolic function is normal with, an EF between 55 - 60 %. The right ventricle is normal in size. Normal LA size by volume 22+/-6 ml/m2. The right atrium is normal in size. Aortic valve is trileaflet and is mildly thickened. The mitral valve leaflets are mildly thickened. Mild mitral annular calcification present. [id number] mitral regurgitation is present. Mild tricuspid regurgitation present. Trace/mild (physiologic) pulmonic regurgitation. The aortic root size is normal. Normal inferior vena cava with normal inspiratory collapse consistent with estimated right atrial pressure of 5 mmHg. There is no pericardial effusion. CONCLUSIONS -------- 1. Sinus rhythm. 2. Mild mitral annular calcification present. 3. [id number] mitral regurgitation is present. 4. Mild tricuspid regurgitation present. 5. Trace/mild (physiologic) pulmonic regurgitation. 6. The aortic root size is normal. 7. Normal inferior vena cava with normal inspiratory collapse consistent with estimated right atrial pressure of 5 mmHg. 8. There is no pericardial effusion. 9. This was a technically good study. 10. There is mild concentric left ventricular hypertrophy. 11. Overall left ventricular systolic function is normal with, an EF between 55 - 60 %. 12. The right ventricle is normal in size. 13. Normal LA size by volume 22+/-6 ml/m2. 14. The right atrium is normal in size. 15. Aortic valve is trileaflet and is mildly thickened. 16. The mitral valve leaflets are mildly thickened. COMMODITY TRADER: Gautam Kirk RDCS
== END 2016-09-11 17:47 | disposition home or self-care (01) | DRG 292 ==
LOC: EC 09:55 → 6SEL 11:39
PROVIDERS: ADMIT Internal Medicine; ATTEND Internal Medicine
DX: I11.0 Hypertensive heart disease with heart failure (principal); N17.9 Acute kidney failure, unspecified; I25.5 Ischemic cardiomyopathy; I25.10 Atherosclerotic heart disease of native coronary artery without angina pectoris; I16.0 Hypertensive urgency; I50.23 Acute on chronic systolic (congestive) heart failure; T50.1X5A Adverse effect of loop [high-ceiling] diuretics, initial encounter; I25.2 Old myocardial infarction; D64.9 Anemia, unspecified; E78.2 Mixed hyperlipidemia; K21.9 Gastro-esophageal reflux disease without esophagitis; J30.2 Other seasonal allergic rhinitis; M47.9 Spondylosis, unspecified; Z91.018 Allergy to other foods; Z71.3 Dietary counseling and surveillance; Z90.49 Acquired absence of other specified parts of digestive tract; Z98.42 Cataract extraction status, left eye; Z82.49 Family history of ischemic heart disease and other diseases of the circulatory system; Z87.891 Personal history of nicotine dependence; Z95.5 Presence of coronary angioplasty implant and graft; Z96.1 Presence of intraocular lens; Z98.41 Cataract extraction status, right eye; Z96.641 Presence of right artificial hip joint; M16.11 Unilateral primary osteoarthritis, right hip; Z79.82 Long term (current) use of aspirin; Z79.1 Long term (current) use of non-steroidal anti-inflammatories (NSAID); Z79.891 Long term (current) use of opiate analgesic; Z79.899 Other long term (current) drug therapy
CPT/HCPCS: 36415; 71020; 80048; 80053; 82550; 82553; 83735; 83880; 84132; 84484; 85025; 85379; 85610; 85730; 87040; 93005; 93306; 94640; 96374; 96375; 99291

== ENCOUNTER → 2017-01-12 | Outpatient (CLI) | payer MEDICARE, OTHER ==
[2017-01-12 12:48] LABS: Appearance,Urine Clear (Clear); Bilirubin,Urine Negative (Negative); Glucose,Urine (UA) Negative (Negative); Ketones,Urine Negative (Negative); Leukocyte Esterase,Urine Negative (Negative); Nitrite,Urine Negative (Negative); Protein,Urine Negative (Negative); Specific Gravity,Urine 1.008 (1.001-1.035); UA Billing (MACRO vs. MICRO) CHEM; Urobilinogen,Urine <2.0 mg/dL (<2.0)
[2017-01-12 13:03] LABS: CH 22.7; CHCM 29.2; HDW 3.09; HGB 9.1 gm/dL (11.4-16.0); Hypochromasia Marked; MCH 23.5 pg (25.0-35.0); MCHC 30.1 g/dL (31.0-37.0); MCV 78.1 fL (80.0-100.0); Mean Platelet Volume 6.9; Microcytosis Slight; RBC 3.85 m/uL (3.80-5.40); RDW 15.8 % (11.5-15.5); WBC 6.5 k/uL (3.8-10.6)
[2017-01-12 13:12] LABS: Calcium 8.9 mg/dL (8.4-10.2); Potassium 4.7 mmol/L (3.5-5.1); Total Bilirubin 0.2 mg/dL (0.2-1.3)
[2017-01-12 13:14] LABS: INR 0.9 (<1.1); Partial Thromboplastin Time 22.3 sec (22.0-30.0); Prothrombin Time 9.6 sec (9.0-12.0)
== END | disposition home or self-care (01) ==
LOC: LABPAT 12:01
PROVIDERS: ATTEND Orthopaedic Surgery
DX: Z01.810 Encounter for preprocedural cardiovascular examination (principal); Z01.818 Encounter for other preprocedural examination; Z01.812 Encounter for preprocedural laboratory examination; Z51.81 Encounter for therapeutic drug level monitoring; Z79.01 Long term (current) use of anticoagulants
CPT/HCPCS: 80053; 81003; 85027; 85610; 85730; 87070; 93005

== ENCOUNTER → 2017-05-25 | Outpatient (CLI) | payer MEDICARE, OTHER ==
[2017-05-25 11:22] LABS: EKG EKG PERFORMED
[2017-05-25 11:57] LABS: Anisocytosis Slight; CH 25.2; CHCM 30.3; HCT 40.3 % (34.0-46.0); HDW 2.52; HGB 12.1 gm/dL (11.4-16.0); Hypochromasia Moderate; MCHC 29.9 g/dL (31.0-37.0); MCV 83.7 fL (80.0-100.0); Mean Platelet Volume 7.8; RBC 4.82 m/uL (3.80-5.40); WBC 6.5 k/uL (3.8-10.6)
[2017-05-25 12:00] LABS: Appearance,Urine Clear (Clear); Bilirubin,Urine Negative (Negative); Glucose,Urine (UA) Negative (Negative); Ketones,Urine Negative (Negative); Leukocyte Esterase,Urine Trace (Negative); Mucus,Urine Rare /hpf; Nitrite,Urine Negative (Negative); PH, Urine 5.5 (5.0-8.0); Particle Count 2787; Protein,Urine 1+ (Negative); RBC,Urine <1 /hpf (0-5); Squamous Epithelial Cell,Urine 2 /hpf (0-4); UA Billing (MACRO vs. MICRO) MICRO; WBC,Urine 3 /hpf (0-5)
[2017-05-25 12:11] LABS: ALT 24 U/L (9-52); AST 18 U/L (14-36); Alkaline Phosphatase 67 U/L (38-126); Anion Gap 9 mmol/L; Blood Urea Nitrogen 21 mg/dL (7-17); Calcium 9.5 mg/dL (8.4-10.2); Carbon Dioxide 27 mmol/L (22-30); Chloride 104 mmol/L (98-107); Glucose 86 mg/dL (74-99); Non-African American GFR(MDRD) 43 (>60 ml/min/1.73 sqM); Potassium 4.5 mmol/L (3.5-5.1); Sodium 140 mmol/L (137-145); Total Bilirubin 0.3 mg/dL (0.2-1.3); Total Protein 6.6 g/dL (6.3-8.2)
== END | disposition home or self-care (01) ==
LOC: LABPAT 10:39
PROVIDERS: ATTEND Orthopaedic Surgery
DX: Z01.810 Encounter for preprocedural cardiovascular examination (principal); Z01.812 Encounter for preprocedural laboratory examination; M16.11 Unilateral primary osteoarthritis, right hip; Z79.01 Long term (current) use of anticoagulants
CPT/HCPCS: 36415; 80053; 81001; 85027; 85610; 85730; 86850; 86900; 86901; 87070; 93005

== ENCOUNTER 2018-05-05 12:55 | Inpatient (IN) | payer MEDICARE, OTHER ==
[2018-05-05] MEDS ORDERED: methylPREDNISolone SOD SUCCI 125 MG in SODIUM CHLORIDE 0.9% 100 ML IVPB STA (13:19)
[2018-05-05] MEDS ORDERED: IPRATROPIUM-ALBUTEROL 3 ML NEB INHALATION STA (13:19)
[2018-05-05] MEDS ORDERED: methylPREDNISolone SOD SUCCI 125 MG/2 ML VIAL IV STA (13:23)
--- NOTE | 2018-05-05 13:24 | ED ---
General Adult HPI - General Chief complaint: Shortness of Breath Stated complaint: CRISTAL Time Seen by Provider: 05/05/18 13:12 Source: patient, EMS Mode of arrival: EMS Limitations: no limitations - History of Present Illness Initial comments: Patient presents with a chief complaint of shortness of breath. The patient states starting about 2 weeks however acutely worse last night. Patient states that she does not have any pain and she feels like she has something in the center of her chest that she cannot cough up. She states she has been intermittently nauseated. She states that her symptoms are aggravated by exertion, alleviated with rest. She denies any productivity of her cough. She denies fevers, chills, chest pain. - Related Data Home Medications Medication Instructions Recorded Confirmed Cetirizine HCl [Zyrtec] 10 mg PO HS 07/08/14 05/05/18 Omeprazole [PriLOSEC] 20 mg PO [id number] 05/28/17 05/05/18 Ranitidine HCl [Zantac] 300 mg PO HS 05/05/18 05/05/18 Previous Rx's Medication Instructions Recorded Atenolol [Tenormin] 25 mg PO BID #60 tab 03/06/16 Allergies Allergy/AdvReac Type Severity Reaction Status Date / Time No Known Allergies Allergy Verified 05/05/18 14:26 Review of Systems ROS Statement: Those systems with pertinent positive or pertinent negative responses have been documented in the HPI. ROS Other: All systems not noted in ROS Statement are negative. Cardiovascular: Reports: chest pain, dyspnea on exertion Gastrointestinal: Reports: nausea Past Medical History Past Medical History: Coronary Artery Disease (CAD), GERD/Reflux, Myocardial Infarction (ME), Osteoarthritis (OA) Additional Past Medical History / Comment(s): varicose veins, Last Myocardial Infarction Date:: 2015 History of Any Multi-Drug Resistant Organisms: None Reported Past Surgical History: Appendectomy, Cholecystectomy, Heart Catheterization With Stent, Hernia Repair, Tonsillectomy Additional Past Surgical History / Comment(s): Pt states she had a cardiac stent about 15 yrs ago, LEFT BREAST benign BX, MALCOLM CATARACTS , malcolm inguinal hernia Past Anesthesia/Blood Transfusion Reactions: Postoperative Nausea & Vomiting ( PONV) Additional Past Anesthesia/Blood Transfusion Reaction / Comment(s): Pt now states that after first cardiac stent about 15 yrs ago she went into "shock". Date of Last Stent Placement:: 02/2016 Past Psychological History: No Psychological Hx Reported Smoking Status: Former smoker Past Alcohol Use History: None Reported Past Drug Use History: None Reported - Past Family History Mother Family Medical History: No Reported History Father Family Medical History: Myocardial Infarction (ME) Additional Family Medical History / Comment(s): . General Exam Limitations: no limitations General appearance: alert, in no apparent distress Head exam: Present: atraumatic, normocephalic Eye exam: Present: normal appearance, PERRL. Absent: scleral icterus ENT exam: Present: normal exam Neck exam: Present: normal inspection Respiratory exam: Present: decreased breath sounds. Absent: respiratory distress, wheezes, accessory muscle use Cardiovascular Exam: Present: regular rate, normal rhythm GI/Abdominal exam: Present: soft. Absent: distended, tenderness Rectal exam: Present: deferred Extremities exam: Present: normal inspection Back exam: Present: normal inspection Neurological exam: Present: alert, oriented X3 Psychiatric exam: Present: normal affect, normal mood Skin exam: Present: warm, dry, intact Course Vital Signs 05/05/18 05/05/18 05/05/18 13:00 13:41 13:58 Temperature 98.3 F Pulse Rate 65 62 Respiratory 24 24 Rate Blood Pressure 193/84 O2 Sat by Pulse 90 L Oximetry 05/05/18 05/05/18 13:59 14:00 Temperature Pulse Rate 64 66 Respiratory 22 Rate Blood Pressure O2 Sat by Pulse 100 Oximetry Medical Decision Making - Medical Decision Making Patient presents with chief complaint of shortness of breath. On initial evaluation, vital signs are stable. Triage vital signs show 90% oxygen saturation on room air. Patient on 2 L and saturating 99 on exam. Lungs are diminished with no crackles or wheezes are heard. Patient is afebrile. Patient in no acute distress. He will be evaluated with basic labs including cardiac enzymes, chest x-ray, ABG, and d-dimer. Ultimately, patient will be admitted for further cardiac workup as symptoms are consistent with angina. Note, patient does have a history of stent placement. EKG performed at 1330 shows NSR with a rate of 57 bpm. PAC's noted. EKG otherwise negative for acute signs of ischemia, segments appear to be within normal limits. 3:17 PM Lab evaluation of this patient significant for acute kidney injury, GFR is 37. BNP is over 3000. Chest x-ray shows cardiomegaly with pulmonary effusions. Labs and imaging consistent with congestive heart failure. Vital signs show hypertension, this time patient was given a dose of Lasix, an inch of Nitropaste. Case discussed with Dr. patel accepted admission. Patient informed of results and care plan, she is agreeable. - Lab Data Result diagrams: 05/05/18 13:50 05/05/18 13:50 Lab Results 05/05/18 05/05/18 05/05/18 Range/Units 13:50 13:50 13:50 WBC 5.9 (3.8-10.6) k/uL RBC 4.23 (3.80-5.40) m/uL Hgb 10.6 L (11.4-16.0) gm/dL Hct 34.3 (34.0-46.0) % MCV 81.2 (80.0-100.0) fL MCH 25.0 (25.0-35.0) pg MCHC 30.9 L (31.0-37.0) g/dL RDW 15.4 (11.5-15.5) % Plt Count 183 (150-450) k/uL Neutrophils % 65 % Lymphocytes % 23 % Monocytes % 8 % Eosinophils % 2 % Basophils % 0 % Neutrophils # 3.9 (1.3-7.7) k/uL Lymphocytes # 1.3 (1.0-4.8) k/uL Monocytes # 0.5 (0-1.0) k/uL Eosinophils # 0.1 (0-0.7) k/uL Basophils # 0.0 (0-0.2) k/uL Hypochromasia Slight D-Dimer (<0.60) mg/L FEU Sodium 139 (137-145) mmol/L Potassium 4.9 (3.5-5.1) mmol/L Chloride 109 H (98-107) mmol/L Carbon Dioxide 24 (22-30) mmol/L Anion Gap 6 mmol/L BUN 23 H (7-17) mg/dL Creatinine 1.28 H (0.52-1.04) mg/dL Est GFR (CKD-EPI)AfAm 43 (>60 ml/min/1.73 sqM) Est GFR (CKD-EPI)NonAf 37 (>60 ml/min/1.73 sqM) Glucose 93 (74-99) mg/dL Calcium 8.6 (8.4-10.2) mg/dL Magnesium 2.2 (1.6-2.3) mg/dL Troponin I <0.012 (0.000-0.034) ng/mL NT-Pro-B Natriuret Pep pg/mL 05/05/18 05/05/18 Range/Units 13:50 13:50 WBC (3.8-10.6) k/uL RBC (3.80-5.40) m/uL Hgb (11.4-16.0) gm/dL Hct (34.0-46.0) % MCV (80.0-100.0) fL MCH (25.0-35.0) pg MCHC (31.0-37.0) g/dL RDW (11.5-15.5) % Plt Count (150-450) k/uL Neutrophils % % Lymphocytes % % Monocytes % % Eosinophils % % Basophils % % Neutrophils # (1.3-7.7) k/uL Lymphocytes # (1.0-4.8) k/uL Monocytes # (0-1.0) k/uL Eosinophils # (0-0.7) k/uL Basophils # (0-0.2) k/uL Hypochromasia D-Dimer 0.88 H (<0.60) mg/L FEU Sodium (137-145) mmol/L Potassium (3.5-5.1) mmol/L Chloride (98-107) mmol/L Carbon Dioxide (22-30) mmol/L Anion Gap mmol/L BUN (7-17) mg/dL Creatinine (0.52-1.04) mg/dL Est GFR (CKD-EPI)AfAm (>60 ml/min/1.73 sqM) Est GFR (CKD-EPI)NonAf (>60 ml/min/1.73 sqM) Glucose (74-99) mg/dL Calcium (8.4-10.2) mg/dL Magnesium (1.6-2.3) mg/dL Troponin I (0.000-0.034) ng/mL NT-Pro-B Natriuret Pep 3360 pg/mL Disposition Clinical Impression: Congestive heart failure, Dyspnea Disposition: ADMITTED IP TO THIS HOSP Condition: Fair Is patient prescribed a controlled substance at d/c from ED?: No Referrals: Gloria Hutson MD [Primary Care Provider] - 1-2 days Decision to Admit Reason: Admit from EC - Out of Hospital Transfer - Req. Specs Out of Hospital Transfer - Requested Specifics: Telemetry Unit
[2018-05-05 14:03] LABS: Basophils % (A) 0 %; Eosinophils # (A) 0.1 k/uL (0-0.7); Eosinophils % (A) 2 %; HCT 34.3 % (34.0-46.0); HGB 10.6 gm/dL (11.4-16.0); Hypochromasia Slight; Lymphocytes # (A) 1.3 k/uL (1.0-4.8); Lymphocytes % (A) 23 %; MCHC 30.9 g/dL (31.0-37.0); MCV 81.2 fL (80.0-100.0); Mean Platelet Volume 8.8; Monocytes # (A) 0.5 k/uL (0-1.0); Monocytes % (A) 8 %; Neutrophils # (A) 3.9 k/uL (1.3-7.7); Neutrophils % (A) 65 %; Platelet Count 183 k/uL (150-450); RBC 4.23 m/uL (3.80-5.40); RDW 15.4 % (11.5-15.5); WBC 5.9 k/uL (3.8-10.6)
[2018-05-05 14:18] LABS: Calcium 8.6 mg/dL (8.4-10.2); Magnesium 2.2 mg/dL (1.6-2.3); Potassium 4.9 mmol/L (3.5-5.1)
--- NOTE | 2018-05-05 14:39 | XR ---
EXAMINATION TYPE: XR chest 2V DATE OF EXAM: 05/05/2018 COMPARISON: 06/07/2017 HISTORY: Short of breath TECHNIQUE: Frontal and lateral views of the chest are obtained. FINDINGS: There is slight blunting of costophrenic angles. There is mild pulmonary vascular congesti on. Heart size is normal. Thoracic aorta is atheromatous. There are chest leads. IMPRESSION: There is probably new mild heart failure compared to old exam. Atheromatous aorta. Small pleural effusions.
[2018-05-05] MEDS ORDERED: NALOXONE 0.4 MG/ML 1 ML VIAL IV PRN (15:13)
[2018-05-05] MEDS ORDERED: FUROSEMIDE 10 MG/ML 4 ML VIAL IV STA (15:15)
[2018-05-05] MEDS ORDERED: NITROGLYCERIN OINT 1 INCH/GM PACKET TOPICAL STA (15:17)
[2018-05-05] MEDS: LORATADINE 10 MG TAB PO SCH (21:41)
[2018-05-05] MEDS: ATENOLOL 25 MG TAB PO SCH (21:41)
[2018-05-05] MEDS: FAMOTIDINE 20 MG TAB PO SCH (21:41)
[2018-05-06] MEDS: FUROSEMIDE 10 MG/ML 2 ML VIAL IV SCH ×4 (00:19→23:50)
[2018-05-06] MEDS: PANTOPRAZOLE 40 MG TABLET PO SCH (05:52)
[2018-05-06 06:59] LABS: VBG PH 7.37 (7.31-7.41)
[2018-05-06 07:00] LABS: Basophils % (A) 0 %; Eosinophils % (A) 0 %; HGB 10.2 gm/dL (11.4-16.0); Hypochromasia Slight; Lymphocytes % (A) 11 %; MCH 24.7 pg (25.0-35.0); MCV 79.9 fL (80.0-100.0); Mean Platelet Volume 7.8; Monocytes # (A) 0.6 k/uL (0-1.0); Monocytes % (A) 6 %; Neutrophils # (A) 7.5 k/uL (1.3-7.7); Neutrophils % (A) 82 %; Platelet Count 191 k/uL (150-450); RBC 4.13 m/uL (3.80-5.40); RDW 15.4 % (11.5-15.5); WBC 9.1 k/uL (3.8-10.6)
[2018-05-06 07:11] LABS: Calcium 9.2 mg/dL (8.4-10.2); Potassium 4.6 mmol/L (3.5-5.1)
[2018-05-06] MEDS: ATENOLOL 25 MG TAB PO SCH ×2 (07:34→20:43)
--- NOTE | 2018-05-06 08:07 | P.CRDCN ---
History of Present Illness Consult date: 05/06/18 Requesting physician: Jolene Menard Consult reason: congestive heart failure Chief complaint: Shortness of breath History of present illness: This is an 87-year-old female who follows with Dr. Carter in the office, she states that she last saw him approximately 2 weeks ago., She states that for the past 2 weeks she has noticed herself to be short of breath, progressively worsening until her admission here. Positive PND and orthopnea. Patient has a known history of coronary artery disease with prior myocardial infarction and prior stenting of the LAD in February 2016 patient was also noted at that time to have a 50-60% lesion in the right coronary artery. Patient also has a history of hypertension, hyperlipidemia, anemia, GERD, she did have an echocardiogram with Doppler study performed in September 2016 which revealed a normal left ventricular systolic function, according to the patient she also just recently had an echo in the office at her visit 2 weeks ago. Chest x-ray on admission here reveals new mild heart failure as compared with prior exam. Small pleural effusions. EKG on arrival here showed a sinus bradycardia with occasional PVC. White blood cell count 9.1, hemoglobin 10.2, platelet count 191. D-dimer 0.88. Sodium 137, potassium 4.6, BUN 25, creatinine 1.3. Troponins negative 3. BNP level 3360. Patient was initiated on IV Lasix in the emergency room, her weight today is down 1 kg. At the time of my examination this morning, patient does state that her breathing has already improved significantly. Blood pressure 150/80 with a heart rate in the 60s, 96 % on 2 L of oxygen. Patient's home medications include Zantac 300 mg daily, Prilosec 20 mg daily, Zyrtec, and Tenormin. Past Medical History Past Medical History: Coronary Artery Disease (CAD), GERD/Reflux, Myocardial Infarction ([place]), Osteoarthritis ([place]) Additional Past Medical History / Comment(s): varicose veins, Last Myocardial Infarction Date:: 2015 History of Any Multi-Drug Resistant Organisms: None Reported Past Surgical History: Appendectomy, Cholecystectomy, Heart Catheterization With Stent, Hernia Repair, Joint Replacement, Tonsillectomy Additional Past Surgical History / Comment(s): Pt states she had a cardiac stent about 15 yrs ago, LEFT BREAST benign BX, MALCOLM CATARACTS , malcolm inguinal hernia, hip replacement Past Anesthesia/Blood Transfusion Reactions: Postoperative Nausea & Vomiting ( PONV) Additional Past Anesthesia/Blood Transfusion Reaction / Comment(s): Pt now states that after first cardiac stent about 15 yrs ago she went into "shock". Date of Last Stent Placement:: 02/2016 Past Psychological History: No Psychological Hx Reported Additional Psychological History / Comment(s): . Smoking Status: Former smoker Past Alcohol Use History: None Reported Additional Past Alcohol Use History / Comment(s): Pt started smoking in 1946 and quit in 1995. She smoked < 1 ppd. Past Drug Use History: None Reported Additional Drug Use History / Comment(s): Smoked 30-40 years, quit 20 years ago - Past Family History Mother Family Medical History: No Reported History Father Family Medical History: Myocardial Infarction ([place]) Additional Family Medical History / Comment(s): . Medications and Allergies Home Medications Medication Instructions Recorded Confirmed Type Cetirizine HCl [Zyrtec] 10 mg PO HS 07/08/14 05/05/18 History Atenolol [Tenormin] 25 mg PO BID #60 tab 03/06/16 05/05/18 Rx Omeprazole [PriLOSEC] 20 mg PO AC-BRKFST 05/28/17 05/05/18 History Ranitidine HCl [Zantac] 300 mg PO HS 05/05/18 05/05/18 History Allergies Allergy/AdvReac Type Severity Reaction Status Date / Time No Known Allergies Allergy Verified 05/05/18 14:26 Physical Exam Vitals: Vital Signs Temp Pulse Pulse Resp BP BP Pulse Ox 05/06/18 04:00 98.1 F 68 20 151/88 96 05/06/18 00:00 97.8 F 74 20 132/96 98 05/05/18 20:00 98 F 70 20 168/73 97 05/05/18 19:24 97 05/05/18 18:03 97.8 F 71 20 189/84 96 05/05/18 18:00 75 14 189/84 97 05/05/18 17:00 75 22 202/84 96 05/05/18 16:53 98.4 F 72 18 197/78 05/05/18 16:00 79 17 189/91 05/05/18 15:38 74 22 216/106 97 05/05/18 15:00 75 14 202/83 97 10/28/18 14:00 64 14 100 05/05/18 13:59 64 22 100 05/05/18 13:58 24 05/05/18 13:51 61 17 100 05/05/18 13:41 62 05/05/18 13:00 98.3 F 65 24 193/84 90 L Intake and Output 05/05/18 05/06/18 05/06/18 22:59 06:59 14:59 Intake Total 240 180 Output Total 550 Balance -310 180 Intake: Oral 240 180 Output: Urine 550 Other: # Voids 1 3 Weight 67.6 kg PHYSICAL EXAMINATION: GENERAL: 87-year-old female in no acute distress at the time of my examination HEENT: Head is atraumatic, normocephalic. Pupils equal, round. Sclera anicteric. Conjunctiva are clear. Mucous membranes of the mouth are moist. Neck is supple. There is no elevated jugular venous pressure. No carotid bruit is heard. HEART EXAMINATION: Heart S1 S2 1 systolic murmur is heard. CHEST EXAMINATION: Lungs are clear with mild diminished air entry to bilateral bases. ABDOMEN: Soft, nontender. Bowel sounds are heard. No organomegaly noted. EXTREMITIES: 2+ peripheral pulses with no evidence of peripheral edema and no calf tenderness noted. NEUROLOGIC patient is awake, alert and oriented X3. . Results 05/06/18 06:30 05/06/18 06:30 Cardiac Enzymes 05/05/18 05/05/18 05/06/18 Range/Units 13:50 19:45 01:31 Troponin I <0.012 <0.012 <0.012 (0.000-0.034) ng/mL CBC 05/05/18 05/06/18 Range/Units 13:50 06:30 WBC 5.9 9.1 (3.8-10.6) k/uL RBC 4.23 4.13 (3.80-5.40) m/uL Hgb 10.6 L 10.2 L (11.4-16.0) gm/dL Hct 34.3 33.0 L (34.0-46.0) % Plt Count 183 191 (150-450) k/uL Comprehensive Metabolic Panel 05/05/18 05/06/18 Range/Units 13:50 06:30 Sodium 139 137 (137-145) mmol/L Potassium 4.9 4.6 (3.5-5.1) mmol/L Chloride 109 H 104 (98-107) mmol/L Carbon Dioxide 24 27 (22-30) mmol/L BUN 23 H 25 H (7-17) mg/dL Creatinine 1.28 H 1.33 H (0.52-1.04) mg/dL Glucose 93 117 H (74-99) mg/dL Calcium 8.6 9.2 (8.4-10.2) mg/dL Current Medications Generic Name Dose Route Start Last Admin Trade Name Freq PRN Reason Stop Dose Admin Atenolol 25 mg 05/05/18 21:00 05/06/18 07:34 Tenormin PO 25 mg BID SANTANA Administration Famotidine 40 mg 05/05/18 21:00 05/05/18 21:41 Pepcid PO 40 mg HS SANTANA Administration Furosemide 20 mg 05/06/18 00:00 05/06/18 07:34 Lasix IV 20 mg Q8HR SANTANA Administration Loratadine 10 mg 05/05/18 21:00 05/05/18 21:41 Claritin PO 10 mg HS SANTANA Administration Naloxone HCl 0.2 mg 05/05/18 15:13 Narcan IV Q2M PRN Opioid Reversal Pantoprazole Sodium 40 mg 05/06/18 07:30 05/06/18 05:52 Protonix PO 40 mg AC-BRKFST SANTANA Administration Intake and Output 05/05/18 05/06/18 05/06/18 22:59 06:59 14:59 Intake Total 240 180 Output Total 550 Balance -310 180 Intake: Oral 240 180 Output: Urine 550 Other: # Voids 1 3 Weight 67.6 kg 05/06/18 06:30 05/06/18 06:30 EKG Interpretations (text) EKG on admission here shows a sinus bradycardia with occasional PVC. No acute changes noted. Assessment and Plan Plan: Assessment and plan #1 diastolic congestive heart failure acute on chronic #2 hypertension #3 hyperlipidemia #4 known history of coronary artery disease with prior LAD stenting #5 GERD #6 anemia #7 mildly renal insufficiency Plan We will obtain the echo from the office at the patient had done 2 weeks ago. Continue current dose of IV Lasix. Patient is not currently on a statin or baby aspirin, we will obtain office records to see if there is any contraindication in the past. We will add a small dose of angiotensin baljit, monitoring the creatinine closely. Further recommendations to follow. DNP note has been reviewed, I agree with a documented findings and plan of care. Patient was seen and examined.
[2018-05-06] MEDS ORDERED: ENOXAPARIN 40 MG/0.4 ML SYRINGE SQ SCH (11:45)
--- NOTE | 2018-05-06 11:45 | P.HPIM ---
History of Present Illness H&P Date: 05/06/18 Chief Complaint: Increased shortness of breath This is a 87-year-old female patient of Dr. Hutson. She presented to the emergency room complaints of increased shortness of breath has been occurring for over 3 weeks. Patient does state shortness of breath is worsening. Patient has a known past medical history of coronary artery, GERD, myocardial infarction to cardiac stent proximally 15 years ago, Osteoarthritis, bilateral cataract and hip replacement. Chest x-ray completed emergency room showing there is probably new mild heart failure compared to old exam. Atheromatous aorta. Small pleural effusions. EKG completed showing sinus bradycardia with occasional premature ventricular complexes. Cardiology services have been consulted. Patient does followed cardiology services outpatient had 2-D echo performed in office approximately 2 weeks ago. Patient will be maintained on IV Lasix. Time patient denies chest pain or shortness of breath. Patient denies nausea vomiting or diarrhea. Patient denies any urinary burning or frequency Review of Systems Please refer to HPI otherwise unremarkable Past Medical History Past Medical History: Coronary Artery Disease (CAD), GERD/Reflux, Myocardial Infarction ([place]), Osteoarthritis ([place]) Additional Past Medical History / Comment(s): varicose veins, Last Myocardial Infarction Date:: 2015 History of Any Multi-Drug Resistant Organisms: None Reported Past Surgical History: Appendectomy, Cholecystectomy, Heart Catheterization With Stent, Hernia Repair, Joint Replacement, Tonsillectomy Additional Past Surgical History / Comment(s): Pt states she had a cardiac stent about 15 yrs ago, LEFT BREAST benign BX, MALCOLM CATARACTS , malcolm inguinal hernia, hip replacement Past Anesthesia/Blood Transfusion Reactions: Postoperative Nausea & Vomiting ( PONV) Additional Past Anesthesia/Blood Transfusion Reaction / Comment(s): Pt now states that after first cardiac stent about 15 yrs ago she went into "shock". Date of Last Stent Placement:: 02/2016 Past Psychological History: No Psychological Hx Reported Additional Psychological History / Comment(s): . Smoking Status: Former smoker Past Alcohol Use History: None Reported Additional Past Alcohol Use History / Comment(s): Pt started smoking in 1946 and quit in 1995. She smoked < 1 ppd. Past Drug Use History: None Reported Additional Drug Use History / Comment(s): Smoked 30-40 years, quit 20 years ago - Past Family History Mother Family Medical History: No Reported History Father Family Medical History: Myocardial Infarction ([place]) Additional Family Medical History / Comment(s): . Medications and Allergies Home Medications Medication Instructions Recorded Confirmed Type Cetirizine HCl [Zyrtec] 10 mg PO HS 07/08/14 05/05/18 History Atenolol [Tenormin] 25 mg PO BID #60 tab 03/06/16 05/05/18 Rx Omeprazole [PriLOSEC] 20 mg PO AC-BRKFST 05/28/17 05/05/18 History Ranitidine HCl [Zantac] 300 mg PO HS 05/05/18 05/05/18 History Allergies Allergy/AdvReac Type Severity Reaction Status Date / Time No Known Allergies Allergy Verified 05/05/18 14:26 Physical Exam Vitals: Vital Signs Temp Pulse Pulse Resp BP BP Pulse Ox 05/06/18 07:30 97.9 F 66 18 163/73 100 05/06/18 04:00 98.1 F 68 20 151/88 96 05/06/18 00:00 97.8 F 74 20 132/96 98 05/05/18 20:00 98 F 70 20 168/73 97 05/05/18 19:24 97 05/05/18 18:03 97.8 F 71 20 189/84 96 05/05/18 18:00 75 14 189/84 97 05/05/18 17:00 75 22 202/84 96 05/05/18 16:53 98.4 F 72 18 197/78 05/05/18 16:00 79 17 189/91 05/05/18 15:38 74 22 216/106 97 05/05/18 15:00 75 14 202/83 97 05/05/18 14:00 64 14 100 05/05/18 13:59 64 22 100 05/05/18 13:58 24 05/05/18 13:51 61 17 100 05/05/18 13:41 62 05/05/18 13:00 98.3 F 65 24 193/84 90 L Intake and Output 05/05/18 05/06/18 05/06/18 22:59 06:59 14:59 Intake Total 240 180 Output Total 550 Balance -310 180 Intake: Oral 240 180 Output: Urine 550 Other: # Voids 1 3 Weight 67.6 kg Head normocephalic Neck supple Lungs diminished bilaterally Heart regular rate and rhythm S1-S2, no rub or gallop Abdomen is soft nontender nondistended positive bowel sounds no hepatosplenomegaly Extremities no edema Neuro alert and orientated to 3 Results CBC & Chem 7: 05/06/18 06:30 05/06/18 06:30 Labs: Abnormal Lab Results - Last 24 Hours (Table) 05/05/18 05/05/18 05/05/18 Range/Units 13:50 13:50 13:50 Hgb 10.6 L (11.4-16.0) gm/dL Hct (34.0-46.0) % MCV (80.0-100.0) fL MCH (25.0-35.0) pg MCHC 30.9 L (31.0-37.0) g/dL D-Dimer 0.88 H (<0.60) mg/L FEU Chloride 109 H (98-107) mmol/L BUN 23 H (7-17) mg/dL Creatinine 1.28 H (0.52-1.04) mg/dL Glucose (74-99) mg/dL 05/06/18 05/06/18 Range/Units 06:30 06:30 Hgb 10.2 L (11.4-16.0) gm/dL Hct 33.0 L (34.0-46.0) % MCV 79.9 L (80.0-100.0) fL MCH 24.7 L (25.0-35.0) pg MCHC (31.0-37.0) g/dL D-Dimer (<0.60) mg/L FEU Chloride (98-107) mmol/L BUN 25 H (7-17) mg/dL Creatinine 1.33 H (0.52-1.04) mg/dL Glucose 117 H (74-99) mg/dL Thrombosis Risk Factor Assmnt - Choose All That Apply Any of the Below Risk Factors Present?: Yes Each Factor Represents 1 point: Obesity (BMI >25) Other Risk Factors: Yes Each Risk Factor Represents 3 Points: Age 75 years or older Thrombosis Risk Factor Assessment Total Risk Factor Score: 4 Thrombosis Risk Factor Assessment Level: Moderate Risk Assessment and Plan Assessment: 1. Increased shortness of breath. D-dimer elevated at 0.88. Patient does have elevated creatinine 1.33. VQ scan has been ordered to rule out PE. 2. Diastolic congestive heart failure acute on chronic. Patient had 2-D echo performed 2 weeks, cardiology office will obtain records cardiology services. Patient maintained on IV Lasix at this time. BNP level 3360 3. History of coronary artery disease 4. History of GERD 5. History of myocardial infarction with cardiac stents over 15 years 6. History of osteoarthritis 7. Acute kidney injury. Creatinine elevated at 1.33 and bun 25. Patient is on IV Lasix for CHF exacerbation. We'll continue to monitor closely DVT prophylaxis Lovenox. GI prophylaxis Protonix I performed an examination of the patient and discussed their management with the Nurse Practitioner. I have reviewed the Nurse Practitioner's notes and agree with the documented findings and plan of care
[2018-05-06 11:53] VITALS: BMI 27.2
--- NOTE | 2018-05-06 11:56 | ECHOF ---
Referral Reason:new CHF MEASUREMENTS -------- HEIGHT: 157.5 cm WEIGHT: 68.9 kg BP: 151/88 IVSd: 1.5 cm (0.6 - 1.1) LVIDd: 3.9 cm (3.9 - 5.3) LVPWd: 1.1 cm (0.6 - 1.1) IVSs: 1.7 cm LVIDs: 2.2 cm LVPWs: 1.6 cm LAESV Index (A-L): 15.02 ml/m Ao Diam: 2.6 cm (2.0 - 3.7) AV Cusp: 1.3 cm (1.5 - 2.6) LA Diam: 2.6 cm (2.7 - 3.8) MV EXCURSION: 11.540 mm (> 18.000) MV EF SLOPE: 37 mm/s (70 - 150) EPSS: 0.5 cm MV E Ridge: 0.98 m/s MV DecT: 309 ms MV A Ridge: 1.02 m/s MV E/A Ratio: 0.96 RAP: 5.00 mmHg RVSP: 7.85 mmHg FINDINGS -------- Sinus rhythm. This was a technically good study. The left ventricular size is normal. Overall left ventricular systolic function is normal with, an EF between 55 - 60 %. Sigmoid shaped septum with focal hypertrophy of the basal septum. The remaini ng wall thickness is normal. The right ventricle is normal in size and function. Normal LA size by volume 22+/-6 ml/m2. The right atrium is normal in size. Aortic valve is trileaflet and is mildly thickened. The mitral valve leaflets are mildly thickened. Moderate mitral regurgitation is present. Mild tricuspid regurgitation present. The right ventricular systolic pressure, as measured by Doppl er, is 7.85mmHg. Pulmonic valve appears structurally normal. The aortic root, ascending aorta and aortic arch are normal. Normal inferior vena cava with normal inspiratory collapse consistent with estimated right atrial pre ssure of 5 mmHg. The pericardium is normal. CONCLUSIONS -------- 1. Sinus rhythm. 2. This was a technically good study. 3. The left ventricular size is normal. 4. Overall left ventricular systolic function is normal with, an EF between 55 - 60 %. 5. Sigmoid shaped septum with focal hypertrophy of the basal septum. The remaining wall thickness is normal. 6. The right ventricle is normal in size and function. 7. Normal LA size by volume 22+/-6 ml/m2. 8. The right atrium is normal in size. 9. Aortic valve is trileaflet and is mildly thickened. 10. The mitral valve leaflets are mildly thickened. 11. Moderate mitral regurgitation is present. 12. Mild tricuspid regurgitation present. 13. The right ventricular systolic pressure, as measured by Doppler, is 7.85mmHg. 14. Pulmonic valve appears structurally normal. 15. The aortic root, ascending aorta and aortic arch are normal. 16. Normal inferior vena cava with normal inspiratory collapse consistent with estimated right atrial pressure of 5 mmHg. 17. The pericardium is normal. FACE BURLER: Nadege Brower RDCS
[2018-05-06] MEDS ORDERED: SENNOSIDES 8.6 MG TAB PO STA (12:26)
[2018-05-06] MEDS: ASPIRIN 81 MG PO SCH (12:45)
--- NOTE | 2018-05-06 16:06 | NM ---
EXAMINATION TYPE: NM pul vent and perfuse DATE OF EXAM: 05/06/2018 COMPARISON: NONE HISTORY: Elevated d-dimer TECHNIQUE: Utilizing inhalation of 64.9 mCi Tc 99m DTPA aerosol and intravenous injection of 5.3 mCi of Tc 99m MAA, ventilation and perfusion images are acquired post injection in multiple projections. FINDINGS: There is a moderate central accumulation of radiotracer compatible with COPD. There are multiple matc hed perfusion ventilation defects. No definite perfusion mismatch is seen with certainty at this time . IMPRESSION: Intermediate probability of pulmonary embolism.
[2018-05-06] MEDS: ENOXAPARIN 60 MG/0.6 ML SYRINGE SQ SCH (18:12)
[2018-05-06] MEDS: LORATADINE 10 MG TAB PO SCH (20:43)
[2018-05-06] MEDS: ATORVASTATIN 20 MG TAB PO SCH (20:43)
[2018-05-06] MEDS: FAMOTIDINE 20 MG TAB PO SCH (20:43)
[2018-05-07] MEDS: PANTOPRAZOLE 40 MG TABLET PO SCH (06:30)
[2018-05-07 07:05] LABS: Basophils % (A) 0 %; Eosinophils # (A) 0.1 k/uL (0-0.7); Eosinophils % (A) 1 %; HCT 38.1 % (34.0-46.0); HGB 12.1 gm/dL (11.4-16.0); Hypochromasia Slight; Lymphocytes # (A) 2.2 k/uL (1.0-4.8); Lymphocytes % (A) 24 %; MCH 25.4 pg (25.0-35.0); MCHC 31.7 g/dL (31.0-37.0); MCV 80.3 fL (80.0-100.0); Mean Platelet Volume 8.4; Monocytes # (A) 0.7 k/uL (0-1.0); Monocytes % (A) 7 %; Neutrophils # (A) 6.1 k/uL (1.3-7.7); Neutrophils % (A) 66 %; Platelet Count 223 k/uL (150-450); RBC 4.75 m/uL (3.80-5.40); RDW 15.2 % (11.5-15.5); WBC 9.3 k/uL (3.8-10.6)
[2018-05-07 07:15] LABS: Calcium 9.4 mg/dL (8.4-10.2); Potassium 4.6 mmol/L (3.5-5.1); Total Bilirubin 0.5 mg/dL (0.2-1.3); Total Protein 6.8 g/dL (6.3-8.2)
[2018-05-07] MEDS: ASPIRIN 81 MG PO SCH (08:34)
[2018-05-07] MEDS: FUROSEMIDE 10 MG/ML 2 ML VIAL IV SCH (08:34)
[2018-05-07] MEDS: ATENOLOL 25 MG TAB PO SCH ×2 (08:34→19:15)
[2018-05-07] MEDS: ENOXAPARIN 60 MG/0.6 ML SYRINGE SQ SCH (08:34)
[2018-05-07] MEDS ORDERED: ENOXAPARIN 30 MG/0.3 ML SYRINGE SQ SCH (09:00)
--- NOTE | 2018-05-07 11:33 | P.PN ---
Subjective Progress Note Date: 05/07/18 This is a 87-year-old female patient of Dr. Hutson. She presented to the emergency room complaints of increased shortness of breath has been occurring for over 3 weeks. Patient does state shortness of breath is worsening. Patient has a known past medical history of coronary artery, GERD, myocardial infarction to cardiac stent proximally 15 years ago, Osteoarthritis, bilateral cataract and hip replacement. Chest x-ray completed emergency room showing there is probably new mild heart failure compared to old exam. Atheromatous aorta. Small pleural effusions. EKG completed showing sinus bradycardia with occasional premature ventricular complexes. Cardiology services have been consulted. Patient does followed cardiology services outpatient had 2-D echo performed in office approximately 2 weeks ago. Patient will be maintained on IV Lasix. Time patient denies chest pain or shortness of breath. Patient denies nausea vomiting or diarrhea. Patient denies any urinary burning or frequency On 05/07/2018 patient is currently resting in bed. Patient is alert and oriented 3. Patient is complaining of shortness breath with activity. Patient currently on 2 L nasal cannula. VQ scan completed yesterday showing intermediate probability of PE. Pulmonary services have been consulted patient currently on Lovenox 60 twice a day. Patient denies chest pain. Patient denies nausea vomiting or diarrhea. Patient denies any urinary burning or frequency Objective - Vital Signs Vital signs: Vital Signs Temp 98.1 F 05/07/18 08:30 Pulse 62 05/07/18 08:30 Resp 18 05/07/18 08:30 BP 125/50 05/07/18 08:30 Pulse Ox 98 05/07/18 08:30 Intake & Output 05/06/18 05/07/18 05/07/18 18:59 06:59 18:59 Intake Total 582 240 Output Total 500 450 Balance 82 -450 240 Weight 67.6 kg 66.7 kg Intake: Oral 582 240 Output: Urine 500 450 Other: # Voids 4 2 1 # Bowel Movements 1 - Exam Head normocephalic Neck supple Lungs diminished throughout Heart regular rate and rhythm S1-S2, no rub or gallop Abdomen is soft nontender nondistended positive bowel sounds no hepatosplenomegaly Extremities no edema Neuro alert and orientated to 3 - Labs CBC & Chem 7: 05/07/18 05:38 05/07/18 05:38 Labs: Abnormal Lab Results - Last 24 Hours (Table) 05/07/18 Range/Units 05:38 BUN 40 H (7-17) mg/dL Creatinine 1.61 H (0.52-1.04) mg/dL Assessment and Plan Assessment: 1. Increased shortness of breath. D-dimer elevated at 0.88. Patient does have elevated creatinine 1.33. VQ scan has been ordered to rule out PE. Patient's completed showing intermediate probability of PE. Patient started on Lovenox 60 twice a day. Pulmonary service is consulted. 2. Diastolic congestive heart failure acute on chronic. Patient had 2-D echo performed 2 weeks, cardiology office will obtain records cardiology services. Patient maintained on IV Lasix at this time. BNP level 3360. Lasix decreased to 20 twice a day by mouth 3. History of coronary artery disease 4. History of GERD 5. History of myocardial infarction with cardiac stents over 15 years 6. History of osteoarthritis 7. Acute kidney injury. Creatinine elevated at 1.33 and bun 25. Patient is on IV Lasix for CHF exacerbation. We'll continue to monitor. Creatinine 1.61 and bun increasing to 40. Lasix will be changed to by mouth 20 twice a day DVT prophylaxis Lovenox. GI prophylaxis Protonix I performed an examination of the patient and discussed their management with the Nurse Practitioner. I have reviewed the Nurse Practitioner's notes and agree with the documented findings and plan of care
--- NOTE | 2018-05-07 12:22 | P.CNPUL ---
History of Present Illness Consult date: 05/07/18 Requesting physician: Jolene Menard Reason for consult: dyspnea Chief complaint: Shortness of breath with congestion History of present illness: This is a very pleasant 87-year-old female patient who follows Dr. Hutson as her primary care physician. She has a history of coronary artery disease with previous stent placement, gastroesophageal reflux disease, osteoarthritis. She does have a history of smoking for 30-40 years but quit 20 years ago. She has not been seen by a internal grinder set up operator in the past. No home oxygen. No home inhalers. She states 2 weeks ago she started having shortness of breath that had been progressing. Prior to her arrival it had become significantly worse and she presented with complaints of shortness of breath and fullness in her throat as though she feels she could cough something out but is unable to. He denies any difficulty in swallowing. No choking on food or drinks. She had undergone a ventilation perfusion scan yesterday that was read as intermediate and we are consulted for the same. No previous history of any blood clots. No recent travels. No recent trauma or surgery. White count 9.3. Hemoglobin 12.1. Creatinine 1.61. D-dimer 0.88. Troponins were negative 3. ProBNP 3360. She is currently on Lovenox 60 mg subcutaneous every 12 hours. Presently , she is sitting up in a chair at the bedside. She is awake and alert in no acute distress. She denies any worsening shortness of breath, cough or congestion. No chest pain, palpitations lightheadedness or dizziness. This continues with a feeling of fullness in her throat that she feels she could cough something out. She is maintaining good O2 saturations in the high 90s on 2 L/m per nasal cannula. She's afebrile. Hemodynamically stable. Review of Systems Constitutional: Denies chills, Denies fever Eyes: bilateral decreased vision, denies blurred vision Ears: deny: decreased hearing Ears, nose, mouth and throat: Reports as per HPI Cardiovascular: Reports shortness of breath Respiratory: Reports congestion, Reports dyspnea Gastrointestinal: Denies abdominal pain, Denies diarrhea, Denies nausea, Denies vomiting Genitourinary: Denies dysuria, Denies hematuria Musculoskeletal: Reports limitation of motion Integumentary: Denies pruritus, Denies rash Neurological: Denies numbness, Denies weakness Psychiatric: Denies anxiety, Denies depression Endocrine: Denies fatigue, Denies weight change Hematologic/Lymphatic: Reports as per HPI Allergic/Immunologic: Reports as per HPI Past Medical History Past Medical History: Coronary Artery Disease (CAD), GERD/Reflux, Myocardial Infarction (MS), Osteoarthritis (OA) Additional Past Medical History / Comment(s): varicose veins, Last Myocardial Infarction Date:: 2015 History of Any Multi-Drug Resistant Organisms: None Reported Past Surgical History: Appendectomy, Cholecystectomy, Heart Catheterization With Stent, Hernia Repair, Joint Replacement, Tonsillectomy Additional Past Surgical History / Comment(s): Pt states she had a cardiac stent about 15 yrs ago, LEFT BREAST benign BX, MALCOLM CATARACTS , malcolm inguinal hernia, hip replacement Past Anesthesia/Blood Transfusion Reactions: Postoperative Nausea & Vomiting ( PONV) Additional Past Anesthesia/Blood Transfusion Reaction / Comment(s): Pt now states that after first cardiac stent about 15 yrs ago she went into "shock". Date of Last Stent Placement:: 02/2016 Past Psychological History: No Psychological Hx Reported Additional Psychological History / Comment(s): . Smoking Status: Former smoker Past Alcohol Use History: None Reported Additional Past Alcohol Use History / Comment(s): Pt started smoking in 1946 and quit in 1995. She smoked < 1 ppd. Past Drug Use History: None Reported Additional Drug Use History / Comment(s): Smoked 30-40 years, quit 20 years ago - Past Family History Mother Family Medical History: No Reported History Father Family Medical History: Myocardial Infarction (MS) Additional Family Medical History / Comment(s): . Medications and Allergies Home Medications Medication Instructions Recorded Confirmed Type Cetirizine HCl [Zyrtec] 10 mg PO HS 07/08/14 05/05/18 History Atenolol [Tenormin] 25 mg PO BID #60 tab 03/06/16 05/05/18 Rx Omeprazole [PriLOSEC] 20 mg PO AC-BRKFST 05/28/17 05/05/18 History Ranitidine HCl [Zantac] 300 mg PO HS 05/05/18 05/05/18 History Allergies Allergy/AdvReac Type Severity Reaction Status Date / Time No Known Allergies Allergy Verified 05/05/18 14:26 Physical Exam Vitals: Vital Signs Temp Pulse Resp BP Pulse Ox 05/07/18 11:25 58 L 16 157/69 98 05/07/18 08:30 98.1 F 62 18 125/50 98 05/07/18 04:00 98.1 F 55 L 18 158/72 95 05/07/18 00:00 98.2 F 59 L 18 147/68 96 05/06/18 20:00 97.8 F 62 18 150/64 95 05/06/18 17:41 226/94 05/06/18 16:30 98.1 F 70 18 226/94 98 05/06/18 15:16 61 18 Intake and Output 05/06/18 05/07/18 05/07/18 22:59 06:59 14:59 Intake Total 222 240 Output Total 450 100 Balance 222 -450 140 Intake: Oral 222 240 Output: Urine 450 100 Other: # Voids 4 2 1 # Bowel Movements 1 Weight 66.7 kg - Constitutional General appearance: average body habitus, no acute distress - EENT Eyes: EOMI, PERRLA ENT: hearing grossly normal Ears: bilateral: normal - Neck Neck: normal ROM Carotids: bilateral: upstroke normal Thyroid: bilateral: normal size - Respiratory Respiratory: bilateral: rales - Cardiovascular Rhythm: regular Heart sounds: normal: S1, S2 - Gastrointestinal General gastrointestinal: normal bowel sounds - Integumentary Integumentary: normal turgor - Neurologic Neurologic: CNII-XII intact - Musculoskeletal Musculoskeletal: generalized weakness - Psychiatric Psychiatric: A&O x's 3, appropriate affect, intact judgment & insight Results - Laboratory Findings CBC and BMP: 05/07/18 05:38 05/07/18 05:38 PT/INR, D-dimer D-Dimer 0.88 mg/L FEU (<0.60) H 05/05/18 13:50 Abnormal lab findings: Abnormal Labs 05/05/18 05/05/18 05/05/18 13:50 13:50 13:50 Hgb 10.6 L Hct MCV MCH MCHC 30.9 L D-Dimer 0.88 H Chloride 109 H BUN 23 H Creatinine 1.28 H Glucose 05/06/18 05/06/18 05/07/18 06:30 06:30 05:38 Hgb 10.2 L Hct 33.0 L MCV 79.9 L MCH 24.7 L MCHC D-Dimer Chloride BUN 25 H 40 H Creatinine 1.33 H 1.61 H Glucose 117 H - Diagnostic Findings Chest x-ray: image reviewed Assessment and Plan Assessment: Impression: #1 Acute hypoxic respiratory failure secondary to a mild exacerbation of diastolic congestive heart failure with small bilateral pleural effusions. Preserved left ventricular systolic function with ejection fraction 55-60%. No pulmonary hypertension. Moderate mitral regurgitation. VQ scan with intermediate probability of pulmonary embolism however there is no definite perfusion mismatch seen with certainty. #2 Coronary artery disease with previous stent placements. No evidence of acute coronary syndrome on this admission. #3 Remote history of chronic tobacco dependence with possible chronic obstructive pulmonary disease. #4 Gastroesophageal reflux disease. #5 Osteoarthritis. #6 Acute on chronic renal failure. Current creatinine 1.61. Plan: The patient was seen and evaluated by Dr. Eric. Chest x-ray, echocardiogram, VQ scan and labs were all reviewed. Doubt any significant pulmonary embolism at this time. No evidence of pneumonia. Continue with diuretics. Continue Lovenox for now. We will increase her activity as tolerated. We will continue to follow and make further recommendations based on her clinical status. I, the cosigning physician, performed a history & physical examination of the patient. Lungs sounds with crackles in the bilateral posterior bases. Maintaining good O2 saturations in the 90s on 2 L/m per nasal cannula. I discussed the assessment and plan of care with my nurse practitioner, Angela Gonzalez. I attest to the above note as dictated by her. Time with Patient: Greater than 30
--- NOTE | 2018-05-07 15:45 | US ---
EXAMINATION TYPE: US venous doppler duplex LE DATE OF EXAM: 05/07/2018 2:51 PM COMPARISON: NONE CLINICAL HISTORY: abnormal vq scan. Abnormal VQ scan SIDE PERFORMED: Bilateral TECHNIQUE: The lower extremity deep venous system is examined utilizing real time linear array sonog david with graded compression, doppler sonography and color-flow sonography. VESSELS IMAGED: External Iliac Vein (EIV) Common Femoral Vein Deep Femoral Vein Greater Saphenous Vein * Femoral Vein Popliteal Vein Small Saphenous Vein * Proximal Calf Veins (* superficial vessels) Grayscale, color doppler, spectral doppler imaging performed of the deep veins of the lower extremiti es. There is normal flow, compressibility, vascular waveforms. Right Leg: No evidence of DVT Left Leg: No evidence of DVT. Complex fluid collection left popliteal fossa = 3.3 x 1.2 x 1.4cm, pro bable Tovar's cyst IMPRESSION: No sonographic evidence of deep venous thrombosis within either lower extremity. Probabl e 3.3 cm left popliteal fossa/tovar cyst.
[2018-05-07] MEDS: FUROSEMIDE 20 MG TAB PO SCH (17:11)
[2018-05-07] MEDS: ATORVASTATIN 20 MG TAB PO SCH (19:15)
[2018-05-07] MEDS: LORATADINE 10 MG TAB PO SCH (19:15)
[2018-05-07] MEDS: FAMOTIDINE 20 MG TAB PO SCH (19:15)
[2018-05-08] MEDS: PANTOPRAZOLE 40 MG TABLET PO SCH (06:10)
[2018-05-08 07:20] LABS: Basophils % (A) 0 %; Eosinophils # (A) 0.1 k/uL (0-0.7); Eosinophils % (A) 1 %; HGB 11.2 gm/dL (11.4-16.0); Lymphocytes # (A) 1.8 k/uL (1.0-4.8); Lymphocytes % (A) 22 %; MCH 25.4 pg (25.0-35.0); MCHC 31.9 g/dL (31.0-37.0); MCV 79.5 fL (80.0-100.0); Mean Platelet Volume 8.4; Monocytes # (A) 0.6 k/uL (0-1.0); Monocytes % (A) 8 %; Neutrophils # (A) 5.4 k/uL (1.3-7.7); Neutrophils % (A) 67 %; Platelet Count 220 k/uL (150-450); RDW 15.2 % (11.5-15.5); WBC 8.1 k/uL (3.8-10.6)
[2018-05-08 07:39] LABS: Albumin 3.5 g/dL (3.5-5.0); Calcium 8.9 mg/dL (8.4-10.2); Potassium 4.3 mmol/L (3.5-5.1); Total Bilirubin 0.5 mg/dL (0.2-1.3); Total Protein 6.1 g/dL (6.3-8.2)
[2018-05-08] MEDS: FUROSEMIDE 20 MG TAB PO SCH (08:36)
[2018-05-08] MEDS: ASPIRIN 81 MG PO SCH (08:36)
[2018-05-08] MEDS: ATENOLOL 25 MG TAB PO SCH ×2 (08:36→22:44)
[2018-05-08] MEDS ORDERED: ENOXAPARIN 60 MG/0.6 ML SYRINGE SQ SCH (09:00)
--- NOTE | 2018-05-08 10:36 | P.PN ---
Subjective Progress Note Date: 05/08/18 Principal diagnosis: Acute hypoxic respiratory failure secondary to mild exacerbation of diastolic congestive heart failure small bilateral pleural effusions P This is a very pleasant 87-year-old female patient who follows Dr. Hutson as her primary care physician. She has a history of coronary artery disease with previous stent placement, gastroesophageal reflux disease, osteoarthritis. She does have a history of smoking for 30-40 years but quit 20 years ago. She has not been seen by a reverse unit operator in the past. No home oxygen. No home inhalers. She states 2 weeks ago she started having shortness of breath that had been progressing. Prior to her arrival it had become significantly worse and she presented with complaints of shortness of breath and fullness in her throat as though she feels she could cough something out but is unable to. He denies any difficulty in swallowing. No choking on food or drinks. She had undergone a ventilation perfusion scan yesterday that was read as intermediate and we are consulted for the same. No previous history of any blood clots. No recent travels. No recent trauma or surgery. White count 9.3. Hemoglobin 12.1. Creatinine 1.61. D-dimer 0.88. Troponins were negative 3. ProBNP 3360. She is currently on Lovenox 60 mg subcutaneous every 12 hours. Presently , she is sitting up in a chair at the bedside. She is awake and alert in no acute distress. She denies any worsening shortness of breath, cough or congestion. No chest pain, palpitations lightheadedness or dizziness. This continues with a feeling of fullness in her throat that she feels she could cough something out. She is maintaining good O2 saturations in the high 90s on 2 L/m per nasal cannula. She's afebrile. Hemodynamically stable. The patient is seen again today 05/08/2018 in follow-up on the selective care unit. She is awake and alert in no acute distress. She is currently sitting up in a chair at the bedside. She denies any worsening shortness of breath, cough or congestion. No chest pain or palpitations. No pain in the lower extremities. Dopplers were negative for DVT. She is maintaining good O2 saturations in the upper 90s on 1 L/m per nasal cannula. She's been afebrile. Hemodynamically stable. White count 8.1. Hemoglobin 11.2. Creatinine 1.92. Objective - Vital Signs Vital signs: Vital Signs Temp 97.9 F 05/08/18 04:00 Pulse 62 05/08/18 04:00 Resp 20 05/08/18 04:00 BP 129/60 05/08/18 04:00 Pulse Ox 96 05/08/18 04:00 Intake & Output 05/07/18 05/08/18 05/08/18 18:59 06:59 18:59 Intake Total 538 240 Output Total 100 250 Balance 438 -250 240 Weight 66 kg Intake: Oral 538 240 Output: Urine 100 250 Other: # Voids 2 1 # Bowel Movements 1 - Exam - Constitutional General appearance: average body habitus, no acute distress - EENT Eyes: EOMI, PERRLA ENT: hearing grossly normal Ears: bilateral: normal - Neck Neck: normal ROM Carotids: bilateral: upstroke normal Thyroid: bilateral: normal size - Respiratory Respiratory: bilateral: rales - Cardiovascular Rhythm: regular Heart sounds: normal: S1, S2 - Gastrointestinal General gastrointestinal: normal bowel sounds - Integumentary Integumentary: normal turgor - Neurologic Neurologic: CNII-XII intact - Musculoskeletal Musculoskeletal: generalized weakness - Psychiatric Psychiatric: A&O x's 3, appropriate affect, intact judgment & insight - Labs CBC & Chem 7: 05/08/18 06:18 05/08/18 06:18 Labs: Abnormal Lab Results - Last 24 Hours (Table) 05/08/18 05/08/18 Range/Units 06:18 06:18 Hgb 11.2 L (11.4-16.0) gm/dL MCV 79.5 L (80.0-100.0) fL BUN 53 H (7-17) mg/dL Creatinine 1.92 H (0.52-1.04) mg/dL Total Protein 6.1 L (6.3-8.2) g/dL Assessment and Plan Assessment: Impression: #1 Acute hypoxic respiratory failure secondary to a mild exacerbation of diastolic congestive heart failure with small bilateral pleural effusions. Preserved left ventricular systolic function with ejection fraction 55-60%. No pulmonary hypertension. Moderate mitral regurgitation. VQ scan with intermediate probability of pulmonary embolism however there is no definite perfusion mismatch seen with certainty. Dopplers of the lower extremity were negative. #2 Coronary artery disease with previous stent placements. No evidence of acute coronary syndrome on this admission. #3 Remote history of chronic tobacco dependence with possible chronic obstructive pulmonary disease. #4 Gastroesophageal reflux disease. #5 Osteoarthritis. #6 Acute on chronic renal failure. Current creatinine 1.92. Plan: The patient was seen and evaluated by Dr. Eric. No pulmonary complaints. Dopplers of lower extremity were negative. Doubt any significant pulmonary embolism at this time. We will increase her activity as tolerated. We will continue to follow and make further recommendations based on her clinical status. I, the cosigning physician, performed a history & physical examination of the patient. Lungs sounds clear. Maintaining good O2 saturations in the 90s on 2 L/ m per nasal cannula. I discussed the assessment and plan of care with my nurse practitioner, Angela Gonzalez. I attest to the above note as dictated by her.
--- NOTE | 2018-05-08 11:09 | P.PN ---
Subjective Progress Note Date: 05/08/18 This is a 87-year-old female patient of Dr. Hutson. She presented to the emergency room complaints of increased shortness of breath has been occurring for over 3 weeks. Patient does state shortness of breath is worsening. Patient has a known past medical history of coronary artery, GERD, myocardial infarction to cardiac stent proximally 15 years ago, Osteoarthritis, bilateral cataract and hip replacement. Chest x-ray completed emergency room showing there is probably new mild heart failure compared to old exam. Atheromatous aorta. Small pleural effusions. EKG completed showing sinus bradycardia with occasional premature ventricular complexes. Cardiology services have been consulted. Patient does followed cardiology services outpatient had 2-D echo performed in office approximately 2 weeks ago. Patient will be maintained on IV Lasix. Time patient denies chest pain or shortness of breath. Patient denies nausea vomiting or diarrhea. Patient denies any urinary burning or frequency On 05/07/2018 patient is currently resting in bed. Patient is alert and oriented 3. Patient is complaining of shortness breath with activity. Patient currently on 2 L nasal cannula. VQ scan completed yesterday showing intermediate probability of PE. Pulmonary services have been consulted patient currently on Lovenox 60. Patient denies chest pain. Patient denies nausea vomiting or diarrhea. Patient denies any urinary burning or frequency On 05/08/2018 patient is currently sitting up in bed feeling much improved from yesterday. Patient is alert and oriented 3. Patient is on 1 L nasal cannula. Shortness of breath is improving with activity. This time patient denies chest pain. Denies nausea vomiting or diarrhea. Denies any urinary burning or frequency. Per pulmonary services doubt any significant pulmonary embolism at this time due to negative Doppler findings. Objective - Vital Signs Vital signs: Vital Signs Temp 97.9 F 05/08/18 04:00 Pulse 62 05/08/18 04:00 Resp 20 05/08/18 04:00 BP 129/60 05/08/18 04:00 Pulse Ox 96 05/08/18 04:00 Intake & Output 05/07/18 05/08/18 05/08/18 18:59 06:59 18:59 Intake Total 538 240 Output Total 100 250 Balance 438 -250 240 Weight 66 kg Intake: Oral 538 240 Output: Urine 100 250 Other: # Voids 2 1 # Bowel Movements 1 - Exam Head normocephalic Neck supple Lungs diminished throughout Heart regular rate and rhythm S1-S2, no rub or gallop Abdomen is soft nontender nondistended positive bowel sounds no hepatosplenomegaly Extremities no edema Neuro alert and orientated to 3 - Labs CBC & Chem 7: 05/08/18 06:18 05/08/18 06:18 Labs: Abnormal Lab Results - Last 24 Hours (Table) 05/08/18 05/08/18 Range/Units 06:18 06:18 Hgb 11.2 L (11.4-16.0) gm/dL MCV 79.5 L (80.0-100.0) fL BUN 53 H (7-17) mg/dL Creatinine 1.92 H (0.52-1.04) mg/dL Total Protein 6.1 L (6.3-8.2) g/dL Assessment and Plan Assessment: 1. Increased shortness of breath. D-dimer elevated at 0.88. Patient does have elevated creatinine 1.33. VQ scan has been ordered to rule out PE. Patient's completed showing intermediate probability of PE. Patient started on Lovenox 60 . Dopplers of lower extremity negative for DVT. Per pulmonary services Doubt any significant pulmonary embolism at this time 2. Diastolic congestive heart failure acute on chronic. Patient had 2-D echo performed 2 weeks, cardiology office will obtain records cardiology services. Patient maintained on IV Lasix at this time. BNP level 3360. Lasix decreased to 20 twice a day by mouth 3. History of coronary artery disease 4. History of GERD 5. History of myocardial infarction with cardiac stents over 15 years 6. History of osteoarthritis 7. Acute kidney injury. Creatinine elevated at 1.33 and bun 25. Patient is on IV Lasix for CHF exacerbation. We'll continue to monitor. Creatinine 1.61 and bun increasing to 40. Lasix will be changed to by mouth 20 twice a day. Creatinine improving to 92 and bun 53 DVT prophylaxis Lovenox. GI prophylaxis Protonix I performed an examination of the patient and discussed their management with the Nurse Practitioner. I have reviewed the Nurse Practitioner's notes and agree with the documented findings and plan of care
--- NOTE | 2018-05-08 14:34 | P.PN ---
Subjective Progress Note Date: 05/08/18 This is an 87-year-old female who follows with Dr. Carter in the office, she states that she last saw him approximately 2 weeks ago., She states that for the past 2 weeks she has noticed herself to be short of breath, progressively worsening until her admission here. Positive PND and orthopnea. Patient has a known history of coronary artery disease with prior myocardial infarction and prior stenting of the LAD in February 2016 patient was also noted at that time to have a 50-60% lesion in the right coronary artery. Patient also has a history of hypertension, hyperlipidemia, anemia, GERD, she did have an echocardiogram with Doppler study performed in September 2016 which revealed a normal left ventricular systolic function, according to the patient she also just recently had an echo in the office at her visit 2 weeks ago. Chest x-ray on admission here reveals new mild heart failure as compared with prior exam. Small pleural effusions. EKG on arrival here showed a sinus bradycardia with occasional PVC. White blood cell count 9.1, hemoglobin 10.2, platelet count 191. D-dimer 0.88. Sodium 137, potassium 4.6, BUN 25, creatinine 1.3. Troponins negative 3. BNP level 3360. Patient was initiated on IV Lasix in the emergency room, her weight today is down 1 kg. At the time of my examination this morning, patient does state that her breathing has already improved significantly. Blood pressure 150/80 with a heart rate in the 60s, 96 % on 2 L of oxygen. Patient's home medications include Zantac 300 mg daily, Prilosec 20 mg daily, Zyrtec, and Tenormin. 05/08/2018 Patient was seen and examined this morning, sitting up in the chair at bedside. Feels well. Breathing is stable. Hemodynamically stable. Anticipating discharge home today. Objective - Vital Signs Vital signs: Vital Signs Temp 98.0 F 05/08/18 12:00 Pulse 62 05/08/18 12:00 Resp 16 05/08/18 12:00 BP 173/83 05/08/18 12:00 Pulse Ox 100 05/08/18 12:00 Intake & Output 05/07/18 05/08/18 05/08/18 18:59 06:59 18:59 Intake Total 538 480 Output Total 100 250 300 Balance 438 -250 180 Weight 66 kg Intake: Oral 538 480 Output: Urine 100 250 300 Other: # Voids 2 1 # Bowel Movements 1 - Exam PHYSICAL EXAMINATION: GENERAL: 87-year-old female in no acute distress at the time of my examination HEENT: Head is atraumatic, normocephalic. Pupils equal, round. Sclera anicteric. Conjunctiva are clear. Mucous membranes of the mouth are moist. Neck is supple. There is no elevated jugular venous pressure. No carotid bruit is heard. HEART EXAMINATION: Heart S1 S2 1 systolic murmur is heard. CHEST EXAMINATION: Lungs are clear to auscultation . ABDOMEN: Soft, nontender. Bowel sounds are heard. No organomegaly noted. EXTREMITIES: 2+ peripheral pulses with no evidence of peripheral edema and no calf tenderness noted. NEUROLOGIC patient is awake, alert and oriented X3. - Labs CBC & Chem 7: 05/08/18 06:18 05/08/18 06:18 Labs: Abnormal Lab Results - Last 24 Hours (Table) 05/08/18 05/08/18 Range/Units 06:18 06:18 Hgb 11.2 L (11.4-16.0) gm/dL MCV 79.5 L (80.0-100.0) fL BUN 53 H (7-17) mg/dL Creatinine 1.92 H (0.52-1.04) mg/dL Total Protein 6.1 L (6.3-8.2) g/dL Assessment and Plan Plan: Assessment and plan #1 diastolic congestive heart failure acute on chronic #2 hypertension #3 hyperlipidemia #4 known history of coronary artery disease with prior LAD stenting #5 GERD #6 anemia #7 mildly renal insufficiency Plan Patient is currently on oral diuretics. We will continue current medications. She may be able to be discharged home once cleared by primary. We'll make her a follow-up appointment in the office post discharge. DNP note has been reviewed, I agree with a documented findings and plan of care. Patient was seen and examined.
[2018-05-08] MEDS: ATORVASTATIN 20 MG TAB PO SCH (22:44)
[2018-05-08] MEDS: LORATADINE 10 MG TAB PO SCH (22:44)
[2018-05-08] MEDS: FAMOTIDINE 20 MG TAB PO SCH (22:44)
[2018-05-09 01:42] VITALS: RESP 18
[2018-05-09] MEDS: PANTOPRAZOLE 40 MG TABLET PO SCH (06:40)
[2018-05-09 06:54] LABS: Basophils % (A) 0 %; Eosinophils # (A) 0.1 k/uL (0-0.7); Eosinophils % (A) 1 %; HGB 11.4 gm/dL (11.4-16.0); Hypochromasia Slight; Lymphocytes # (A) 1.5 k/uL (1.0-4.8); Lymphocytes % (A) 21 %; MCH 25.5 pg (25.0-35.0); MCHC 31.8 g/dL (31.0-37.0); MCV 80.1 fL (80.0-100.0); Mean Platelet Volume 8.7; Monocytes # (A) 0.7 k/uL (0-1.0); Monocytes % (A) 10 %; Neutrophils # (A) 4.6 k/uL (1.3-7.7); Neutrophils % (A) 66 %; Platelet Count 200 k/uL (150-450); RBC 4.49 m/uL (3.80-5.40); RDW 15.2 % (11.5-15.5); WBC 6.9 k/uL (3.8-10.6)
[2018-05-09 07:12] LABS: Albumin 3.5 g/dL (3.5-5.0); Calcium 9.1 mg/dL (8.4-10.2); Potassium 4.7 mmol/L (3.5-5.1); Total Bilirubin 0.6 mg/dL (0.2-1.3); Total Protein 6.3 g/dL (6.3-8.2)
[2018-05-09] MEDS: ATENOLOL 25 MG TAB PO SCH (08:58)
[2018-05-09] MEDS: ASPIRIN 81 MG PO SCH (08:58)
[2018-05-09] MEDS ORDERED: ENOXAPARIN 40 MG/0.4 ML SYRINGE SQ SCH (09:00)
--- NOTE | 2018-05-09 10:20 | P.PN ---
Subjective Progress Note Date: 05/09/18 This is an 87-year-old female who follows with Dr. Carter in the office, she states that she last saw him approximately 2 weeks ago., She states that for the past 2 weeks she has noticed herself to be short of breath, progressively worsening until her admission here. Positive PND and orthopnea. Patient has a known history of coronary artery disease with prior myocardial infarction and prior stenting of the LAD in February 2016 patient was also noted at that time to have a 50-60% lesion in the right coronary artery. Patient also has a history of hypertension, hyperlipidemia, anemia, GERD, she did have an echocardiogram with Doppler study performed in September 2016 which revealed a normal left ventricular systolic function, according to the patient she also just recently had an echo in the office at her visit 2 weeks ago. Chest x-ray on admission here reveals new mild heart failure as compared with prior exam. Small pleural effusions. EKG on arrival here showed a sinus bradycardia with occasional PVC. White blood cell count 9.1, hemoglobin 10.2, platelet count 191. D-dimer 0.88. Sodium 137, potassium 4.6, BUN 25, creatinine 1.3. Troponins negative 3. BNP level 3360. Patient was initiated on IV Lasix in the emergency room, her weight today is down 1 kg. At the time of my examination this morning, patient does state that her breathing has already improved significantly. Blood pressure 150/80 with a heart rate in the 60s, 96 % on 2 L of oxygen. Patient's home medications include Zantac 300 mg daily, Prilosec 20 mg daily, Zyrtec, and Tenormin. 05/08/2018 Patient was seen and examined this morning, sitting up in the chair at bedside. Feels well. Breathing is stable. Hemodynamically stable. Anticipating discharge home today. 05/09/2018 Patient seen and examined this morning, feels well, states that she did not sleep well through the night but denies any difficulty in breathing and no chest discomfort. Objective - Vital Signs Vital signs: Vital Signs Temp 98.1 F 05/09/18 04:00 Pulse 63 05/09/18 04:00 Resp 18 05/09/18 04:00 BP 154/61 05/09/18 04:00 Pulse Ox 100 05/09/18 04:00 Intake & Output 05/08/18 05/09/18 05/09/18 18:59 06:59 18:59 Intake Total 480 300 180 Output Total 300 1900 Balance 180 -1600 180 Weight 66 kg Intake: Oral 480 300 180 Output: Urine 300 1900 Other: # Voids 2 # Bowel Movements 1 - Exam PHYSICAL EXAMINATION: GENERAL: 87-year-old female in no acute distress at the time of my examination HEENT: Head is atraumatic, normocephalic. Pupils equal, round. Sclera anicteric. Conjunctiva are clear. Mucous membranes of the mouth are moist. Neck is supple. There is no elevated jugular venous pressure. No carotid bruit is heard. HEART EXAMINATION: Heart S1 S2 1 systolic murmur is heard. CHEST EXAMINATION: Lungs are clear to auscultation . ABDOMEN: Soft, nontender. Bowel sounds are heard. No organomegaly noted. EXTREMITIES: 2+ peripheral pulses with no evidence of peripheral edema and no calf tenderness noted. NEUROLOGIC patient is awake, alert and oriented X3. - Labs CBC & Chem 7: 05/09/18 06:01 05/09/18 06:01 Labs: Abnormal Lab Results - Last 24 Hours (Table) 05/09/18 Range/Units 06:01 Carbon Dioxide 31 H (22-30) mmol/L BUN 51 H (7-17) mg/dL Creatinine 1.68 H (0.52-1.04) mg/dL Assessment and Plan Plan: Assessment and plan #1 diastolic congestive heart failure acute on chronic #2 hypertension #3 hyperlipidemia #4 known history of coronary artery disease with prior LAD stenting #5 GERD #6 anemia #7 mildly renal insufficiency Plan Patient is currently on oral diuretics. We will continue current medications. She may be able to be discharged home once cleared by primary. We'll make her a follow-up appointment in the office post discharge. DNP note has been reviewed, I agree with a documented findings and plan of care. Patient was seen and examined.
[2018-05-09 10:31] VITALS: PULSE 62; TEMP 97.8
--- NOTE | 2018-05-09 11:38 | CDI ---
Last Revision, June 2017 Documentation Clarification Form Date: 05/09/2018 11:22:15 AM From: Radha Tapia RN, CCDS Admit Date: 05/05/2018 3:13:00 PM Patient Name: Cammie Fernandes Visit Number: [id number] Discharge Date: ATTENTION: The Clinical Documentation Specialists (CDI) and [facility] Coding Staff appreciate your assistance in clarifying documentation. Please respond to the clarification below the line at the bottom and electronically sign. The CDI & [facility] Coding staff will review the response and follow-up if needed. Please note: Queries are made part of the Legal Health Record. If you have any questions, please contact the author of this message via ITS. Vivian Barksdale MD History/Risk Factors: CAD, COPD, Diastolic CHF, Former smoker Clinical Indicators: Emergency department evaluation of labs was significant for acute kidney injury, GFR is 37. In your documentation on 05/07-05/08/18, acute on chronic renal failure is noted. Current BUN 53, CR1.92 GFR: 23 On admission: BUN23 CR 1.28 GFR:37 Treatment: Monitor Labs BUN/Creatinine Lasix IV (change to PO In order to capture the severity of condition, please clarify if the condition signifies: CKD Stage 1 (GFR > 90) CKD Stage 2 (GFR 60-89) CKD Stage 3 (GFR 30-59) CKD Stage 4 (GFR 15-29) CKD Stage 5 (GFR <15) Other, please specify Unable to determine Please continue to document in your progress notes and discharge summary in order to capture severity of illness and risk of mortality. Include clinical findings that support your diagnosis. MTDD
--- NOTE | 2018-05-09 12:19 | P.PN ---
Subjective Progress Note Date: 05/09/18 Principal diagnosis: Acute on chronic diastolic congestive heart failure This is a very pleasant 87-year-old female patient who follows Dr. Hutson as her primary care physician. She has a history of coronary artery disease with previous stent placement, gastroesophageal reflux disease, osteoarthritis. She does have a history of smoking for 30-40 years but quit 20 years ago. 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 No home oxygen. No home inhalers. She states 2 weeks ago she started having shortness of breath that had been progressing. Prior to her arrival it had become significantly worse and she presented with complaints of shortness of breath and fullness in her throat as though she feels she could cough something out but is unable to. He denies any difficulty in swallowing. No choking on food or drinks. She had undergone a ventilation perfusion scan yesterday that was read as intermediate and we are consulted for the same. No previous history of any blood clots. No recent travels. No recent trauma or surgery. White count 9.3. Hemoglobin 12.1. Creatinine 1.61. D-dimer 0.88. Troponins were negative 3. ProBNP 3360. She is currently on Lovenox 60 mg subcutaneous every 12 hours. Presently , she is sitting up in a chair at the bedside. She is awake and alert in no acute distress. She denies any worsening shortness of breath, cough or congestion. No chest pain, palpitations lightheadedness or dizziness. This continues with a feeling of fullness in her throat that she feels she could cough something out. She is maintaining good O2 saturations in the high 90s on 2 L/m per nasal cannula. She's afebrile. Hemodynamically stable. The patient is seen again today 05/08/2018 in follow-up on the selective care unit. She is awake and alert in no acute distress. She is currently sitting up in a chair at the bedside. She denies any worsening shortness of breath, cough or congestion. No chest pain or palpitations. No pain in the lower extremities. Dopplers were negative for DVT. She is maintaining good O2 saturations in the upper 90s on 1 L/m per nasal cannula. She's been afebrile. Hemodynamically stable. White count 8.1. Hemoglobin 11.2. Creatinine 1.92. On 05/09/2018 patient seen in follow-up on selective care unit. She is calm and comfortable, resting in bed, her pulse ox is 95%, no shortness of breath no chest pain, afebrile, hemodynamically stable. She has been diuresed, she has been transitioned to oral Lasix, she is in -1500 fluid balance over the last 24 hours, lung sounds are positive for minimal crackles at the bases. His labs have been reviewed, CBC was within normal limits, there has been improvement in the patient's renal profile, B1 is 51, creatinine is down to 1.68, CO2 is 31, the rest of the electrolyte panel was within normal limits. LFTs were normal. No acute events overnight, no specific complaints, anticipate discharge home today. Objective - Vital Signs Vital signs: Vital Signs Temp 97.8 F 05/09/18 08:00 Pulse 62 05/09/18 08:00 Resp 18 05/09/18 04:00 BP 157/74 05/09/18 08:00 Pulse Ox 95 05/09/18 08:00 Intake & Output 05/08/18 05/09/18 05/09/18 18:59 06:59 18:59 Intake Total 480 300 180 Output Total 300 1900 Balance 180 -1600 180 Weight 66 kg Intake: Oral 480 300 180 Output: Urine 300 1900 Other: # Voids 2 # Bowel Movements 1 - Exam - Constitutional General appearance: average body habitus, no acute distress - EENT Eyes: EOMI, PERRLA ENT: hearing grossly normal Ears: bilateral: normal - Neck Neck: normal ROM Carotids: bilateral: upstroke normal Thyroid: bilateral: normal size - Respiratory Respiratory: bilateral: Minimal rales at the bases - Cardiovascular Rhythm: regular Heart sounds: normal: S1, S2 - Gastrointestinal General gastrointestinal: normal bowel sounds - Integumentary Integumentary: normal turgor - Neurologic Neurologic: CNII-XII intact - Musculoskeletal Musculoskeletal: generalized weakness - Psychiatric Psychiatric: A&O x's 3, appropriate affect, intact judgment & insight - Labs CBC & Chem 7: 05/09/18 06:01 05/09/18 06:01 Labs: Abnormal Lab Results - Last 24 Hours (Table) 05/09/18 Range/Units 06:01 Carbon Dioxide 31 H (22-30) mmol/L BUN 51 H (7-17) mg/dL Creatinine 1.68 H (0.52-1.04) mg/dL Assessment and Plan Plan: #1 Acute hypoxic respiratory failure secondary to a mild exacerbation of diastolic congestive heart failure with small bilateral pleural effusions. Preserved left ventricular systolic function with ejection fraction 55-60%. No pulmonary hypertension. Moderate mitral regurgitation. VQ scan with intermediate probability of pulmonary embolism however there is no definite perfusion mismatch seen with certainty. Dopplers of the lower extremity were negative. #2 Coronary artery disease with previous stent placements. No evidence of acute coronary syndrome on this admission. #3 Remote history of chronic tobacco dependence with possible chronic obstructive pulmonary disease. #4 Gastroesophageal reflux disease. #5 Osteoarthritis. #6 Acute on chronic renal failure. Current creatinine 1.92. #7. Chronic kidney disease stage III Plan: Patient is doing well, no specific complaints, no worsening shortness of breath , no chest pain, she is on room air, she is tolerating ambulation. She has been transitioned to oral Lasix, she is in negative fluid balance, pulmonary perspective patient is stable for discharge home today I performed a history & physical examination of the patient and discussed their management with my nurse practitioner, Ksenia Perkins. I reviewed the nurse practitioner's note and agree with the documented findings and plan of care. Lung sounds are positive and normal bibasilar rales The findings and the impression was discussed with the patient. I attest to the documentation by the nurse practitioner. Time with Patient: Less than 30
--- NOTE | 2018-05-09 13:23 | P.DS ---
Providers Date of admission: 05/05/18 15:13 Expected date of discharge: 05/09/18 Attending physician: Jolene Menard Consults: 05/05/18 20:52 Consult Physician Routine Consulting Provider: Sylvester Bailey Consult Reason/Comments: CHF Do you want consulting provider notified?: Yes, Notify in am 05/07/18 10:23 Consult Physician Routine Consulting Provider: Vivian Eric Consult Reason/Comments: VQ scan increase SOB Do you want consulting provider notified?: Yes Primary care physician: Gloria Hutson Hospital Course: Discharge Diagnosis 1. Increased shortness of breath. D-dimer elevated at 0.88. Patient does have elevated creatinine 1.33. VQ scan has been ordered to rule out PE. Patient's completed showing intermediate probability of PE. Patient started on Lovenox 60 . Dopplers of lower extremity negative for DVT. Per pulmonary services Doubt any significant pulmonary embolism at this time. Patient has been cleared for discharge from pulmonary services 2. Diastolic congestive heart failure acute on chronic. Patient had 2-D echo performed 2 weeks, cardiology office will obtain records cardiology services. Patient maintained on IV Lasix at this time. BNP level 3360. Lasix decreased to 20 twice a day by mouth. Patient has been cleared for discharge from pulmonary and cardiology services. She will be discharged home Lasix 20 mg twice a day and will follow-up closely with PCP and consulting providers 3. History of coronary artery disease 4. History of GERD 5. History of myocardial infarction with cardiac stents over 15 years 6. History of osteoarthritis 7. Acute kidney injury. Creatinine elevated at 1.33 and bun 25. Patient is on IV Lasix for CHF exacerbation. We'll continue to monitor. Creatinine 1.61 and bun increasing to 40. Lasix will be changed to by mouth 20 twice a day. Creatinine improving to 1.68 and bun 51. CMP will be ordered for 3 days patient to follow-up closely with PCP Hospital course This is a 87-year-old female patient of Dr. Hutson. She presented to the emergency room complaints of increased shortness of breath has been occurring for over 3 weeks. Patient does state shortness of breath is worsening. Patient has a known past medical history of coronary artery, GERD, myocardial infarction to cardiac stent proximally 15 years ago, Osteoarthritis, bilateral cataract and hip replacement. Chest x-ray completed emergency room showing there is probably new mild heart failure compared to old exam. Atheromatous aorta. Small pleural effusions. EKG completed showing sinus bradycardia with occasional premature ventricular complexes. Cardiology services have been consulted. Patient does followed cardiology services outpatient had 2-D echo performed in office approximately 2 weeks ago. Patient will be maintained on IV Lasix. Time patient denies chest pain or shortness of breath. Patient denies nausea vomiting or diarrhea. Patient denies any urinary burning or frequency On 05/07/2018 patient is currently resting in bed. Patient is alert and oriented 3. Patient is complaining of shortness breath with activity. Patient currently on 2 L nasal cannula. VQ scan completed yesterday showing intermediate probability of PE. Pulmonary services have been consulted patient currently on Lovenox 60. Patient denies chest pain. Patient denies nausea vomiting or diarrhea. Patient denies any urinary burning or frequency On 05/08/2018 patient is currently sitting up in bed feeling much improved from yesterday. Patient is alert and oriented 3. Patient is on 1 L nasal cannula. Shortness of breath is improving with activity. This time patient denies chest pain. Denies nausea vomiting or diarrhea. Denies any urinary burning or frequency. Per pulmonary services doubt any significant pulmonary embolism at this time due to negative Doppler findings. On 05/09/2018 patient is currently sitting up in bed feeling much improved. Patient is tolerating room air. Patient expresses she is eager to go home. Patient is alert and oriented 3. Patient denies chest pain or shortness breath at times. Patient denies nausea vomiting or diarrhea. Patient denies any urinary burning or frequency. Patient has been cleared from consulting providers. Patient to follow-up with primary care provider, pulmonary and cardiology services. CMP has been ordered for 3 days I performed an examination of the patient and discussed their management with the Nurse Practitioner. I have reviewed the Nurse Practitioner's notes and agree with the documented findings and plan of care Patient Condition at Discharge: Stable Plan - Discharge Summary Discharge Rx Participant: No New Discharge Prescriptions: New Furosemide [Lasix] 20 mg PO BID #60 tab Continue Cetirizine HCl [Zyrtec] 10 mg PO HS Atenolol [Tenormin] 25 mg PO BID #60 tab Omeprazole [PriLOSEC] 20 mg PO AC-BRKFST Ranitidine HCl [Zantac] 300 mg PO HS Discharge Medication List Cetirizine HCl [Zyrtec] 10 mg PO HS 07/08/14 [History] Atenolol [Tenormin] 25 mg PO BID #60 tab 03/06/16 [Rx] Omeprazole [PriLOSEC] 20 mg PO AC-BRKFST 05/28/17 [History] Ranitidine HCl [Zantac] 300 mg PO HS 05/05/18 [History] Furosemide [Lasix] 20 mg PO BID #60 tab 05/09/18 [Rx] Follow up Appointment(s)/Referral(s): Vivian Eric MD [STAFF PHYSICIAN] - 1 Week Gloria Hutson MD [Primary Care Provider] - 05/13/18 1:15 pm (Sunday) Riccardo Carter MD [STAFF PHYSICIAN] - 05/15/18 9:15 am Ambulatory/Diagnostic Orders: Comprehensive Metabolic Panel [LAB.AMB] Time Frame: 3 Days, Location: None Selected Patient Instructions/Handouts: Heart Failure (DC), Heart Healthy Diet (DC) Discharge Disposition: HOME SELF-CARE
[2018-05-09 14:34] VITALS: BP 140/112
[2018-05-10] MEDS ORDERED: ENOXAPARIN 30 MG/0.3 ML SYRINGE SQ SCH (09:00)
--- NOTE | 2018-05-10 17:14 | P.PN ---
Progress Note - Text Progress Note Date: 05/10/18 the chronic kidney disease in this patient is considered a stage III based on the GFR.
== END 2018-05-09 18:01 | disposition home or self-care (01) | DRG 291 ==
LOC: EC 12:55 → 4MS4W 15:13 → 3SCARD 16:51
PROVIDERS: ADMIT Internal Medicine; ATTEND Internal Medicine
DX: I13.0 Hypertensive heart and chronic kidney disease with heart failure and stage 1 through stage 4 chronic kidney disease, or unspecified chronic kidney disease (principal); I50.33 Acute on chronic diastolic (congestive) heart failure; J96.01 Acute respiratory failure with hypoxia; N17.9 Acute kidney failure, unspecified; I25.119 Atherosclerotic heart disease of native coronary artery with unspecified angina pectoris; I25.2 Old myocardial infarction; K21.9 Gastro-esophageal reflux disease without esophagitis; I83.90 Asymptomatic varicose veins of unspecified lower extremity; D64.9 Anemia, unspecified; M19.90 Unspecified osteoarthritis, unspecified site; I70.0 Atherosclerosis of aorta; I34.0 Nonrheumatic mitral (valve) insufficiency; I49.3 Ventricular premature depolarization; E78.5 Hyperlipidemia, unspecified; Z82.49 Family history of ischemic heart disease and other diseases of the circulatory system; Z87.891 Personal history of nicotine dependence; Z95.5 Presence of coronary angioplasty implant and graft; Z79.899 Other long term (current) drug therapy; Z96.649 Presence of unspecified artificial hip joint; Z90.49 Acquired absence of other specified parts of digestive tract; Z98.890 Other specified postprocedural states; Z98.42 Cataract extraction status, left eye; Z98.41 Cataract extraction status, right eye
CPT/HCPCS: 36415; 71046; 78582; 80048; 80053; 82803; 83735; 83880; 84484; 85025; 85379; 93005; 93306; 93970; 94640; 94760; 96374; 96375; 99285

== ENCOUNTER → 2018-06-20 | Outpatient (CLI) | payer MEDICARE, OTHER ==
[2018-06-20 14:12] LABS: HCT 37.1 % (34.0-46.0); HGB 11.2 gm/dL (11.4-16.0); Hypochromasia Moderate; MCH 24.8 pg (25.0-35.0); MCHC 30.3 g/dL (31.0-37.0); MCV 81.7 fL (80.0-100.0); Mean Platelet Volume 8.7; Platelet Count 186 k/uL (150-450); RBC 4.54 m/uL (3.80-5.40); RDW 15.2 % (11.5-15.5); WBC 7.4 k/uL (3.8-10.6)
[2018-06-20 14:22] LABS: Potassium 4.8 mmol/L (3.5-5.1)
== END | disposition home or self-care (01) ==
LOC: LABPAT 11:10
PROVIDERS: ATTEND Nurse Practitioner
DX: Z01.812 Encounter for preprocedural laboratory examination (principal); E78.2 Mixed hyperlipidemia; I10 Essential (primary) hypertension; I25.10 Atherosclerotic heart disease of native coronary artery without angina pectoris
CPT/HCPCS: 80051; 82565; 84520; 85027

== ENCOUNTER 2018-06-28 05:37 | Day surgery (SDC) | payer MEDICARE, OTHER ==
[2018-06-28] MEDS ORDERED: SODIUM CHLORIDE 0.9% 1,000 ML in EMPTY BAG 1 BAG IV ONE (06:04)
[2018-06-28] MEDS ORDERED: ATORVASTATIN 80 MG TAB PO STA (06:04)
[2018-06-28] MEDS ORDERED: ALPRAZolam 0.5 MG TAB PO PRN (06:04)
[2018-06-28] MEDS ORDERED: ASPIRIN 325 MG TAB PO STA (06:04)
[2018-06-28] MEDS ORDERED: ALPRAZolam 0.25 MG TAB PO PRN (06:04)
[2018-06-28] MEDS ORDERED: NITROGLYCERIN SL TABS 0.4 MG TAB SUBLINGUAL PRN ×2 (06:04→09:08)
[2018-06-28] MEDS ORDERED: LIDOCAINE 1% INJ 10MG/ML (20 ML MDV) ONE (07:34)
[2018-06-28] MEDS ORDERED: fentaNYL (PF) 50 MCG/ML 2 ML AMP ONE (07:34)
[2018-06-28] MEDS ORDERED: fentaNYL (PF) 50 MCG/ML 2 ML AMP IV ONE (07:45)
[2018-06-28] MEDS ORDERED: LIDOCAINE 1% INJ 10MG/ML (20 ML MDV) SQ ONE (07:49)
[2018-06-28] MEDS ORDERED: LIDOCAINE 2% INJ 20 MG/ML SQ ONE (07:49)
[2018-06-28] MEDS ORDERED: hydrALAZINE HCL 20 MG/ML 1 ML VIAL ONE (07:58)
[2018-06-28] MEDS ORDERED: hydrALAZINE HCL 20 MG/ML 1 ML VIAL IV ONE (07:59)
[2018-06-28] MEDS ORDERED: NITROGLYCERIN OINT 1 INCH/GM PACKET TOPICAL ONE ×2 (08:02→08:08)
--- NOTE | 2018-06-28 08:26 | P.CARDCATH ---
Date of Procedure: 06/28/18 Preoperative Diagnosis: Coronary artery disease, angina and positive stress test Postoperative Diagnosis: Patent stents in the LAD, critical lesions in the mid and distal RCA. Whole coronary system is heavily calcified Procedure(s) Performed: Left heart catheterization without left ventriculography Description of Procedure: HISTORY: This is a 87-year-old female with history of hypertension and coronary artery disease with a previous stent placement of the proximal and mid LAD who was recently admitted to the hospital with shortness of breath. Her echo Cardigan showed normal LV function. Nuclear stress test showed apical ischemia. Patient has been having exertional shortness of breath and intermittent burning chest pain. She is advised to have a cardiac catheterization for definite diagnosis. CONSENT:I have discussed the risks, benefits and alternative therapies for the above-mentioned procedure and for both sedation/analgesia as well as necessary blood product administration, if indicated, as they pertain to this patient. The patient has indicated understanding and acceptance of the risks and procedures discussed. PROCEDURE: Patient was brought to the lab in a fasting state. Patient was given some IV sedation. The right groin is infiltrated with lidocaine and right femoral artery was entered using Seldinger technique. A 6-Uzbek catheter was left in place and selective coronary arteriography was performed. Patient tolerated the procedure well. No immediate complications were noted . Waiting to be evaluated by Dr. MARY ALICE Pena for possible stent placement of the RCA. Conscious Sedation: Versed 0mg Fentanyl 12.5 g Duration 27minutes HEMODYNAMICS: The aortic pressure is 190/60. Left ventricle end-diastolic pressure is 15-20. There was an no significant gradient across the aortic valve SELECTIVE CORONARY ARTERIOGRAPHY: LEFT MAIN: Left system is heavily calcified. Left main is normal length and patent THE LEFT ANTERIOR DESCENDING CORONARY ARTERY:. This is a fair caliber vessel with patent stent in the proximal and mid LAD. It is sized to moderate caliber diagonal branch. All left coronary artery is calcified with mild diffuse disease THE LEFT CIRCUMFLEX AND IS CORONARY ARTERY:. This is a moderate caliber vessel giving rise to moderate caliber OM branch. This has a diffuse calcification and plaque without any significant focal lesions THE RIGHT CORONARY ARTERY:. This is a good caliber vessel with a diffuse disease involving the mid and distal segments and also involving the PDA. There is about 80% stenosis involving a long segment of the mid right coronary artery followed by another 70-80% stenosis of the distal RCA. There is also a critical lesion involving the distal PDA branch LEFT VENTRICULOGRAPHY: Not performed FINAL IMPRESSION:. Patent stents in the LAD system. Critical lesion involving the long segment of mid RCA and also distal RCA. The vessel is diffusely diseased. The PDA also has critical lesion distally PLAN: Films are reviewed with Dr. MARY ALICE Pena. Patient is going to have stent placement of the RCA PROGNOSIS: Guarded
[2018-06-28] MEDS ORDERED: BIVALIRUDIN BOLUS 250 MG/50 ML IV ONE (08:30)
[2018-06-28] MEDS ORDERED: BIVALIRUDIN 250 MG in SODIUM CHLORIDE 0.9% 39.5 ML IV ONE (08:31)
[2018-06-28] MEDS: NITROGLYCERIN 1000MCG/10ML SYRINGE INTRACORON ONE ×2 (08:42→09:03)
[2018-06-28] MEDS ORDERED: MORPHINE SULFATE 4 MG/ML SYRINGE ONE (08:51)
[2018-06-28] MEDS ORDERED: MORPHINE SULFATE 4 MG/ML SYRINGE IVP ONE (08:54)
[2018-06-28] MEDS ORDERED: IOPAMIDOL-370 125ML BTL INJ ONE (08:54)
[2018-06-28] MEDS ORDERED: CLOPIDOGREL 75 MG TAB PO ONE (09:03)
[2018-06-28] MEDS ORDERED: IOPAMIDOL-370 50ML BTL INJ ONE (09:04)
[2018-06-28] MEDS ORDERED: CLOPIDOGREL 75 MG TAB ONE (09:05)
[2018-06-28] MEDS ORDERED: RX INFO: IV CONTRAST WAS GIVEN 1 EACH MISC MISCELLANE PRN (09:08)
[2018-06-28] MEDS ORDERED: ZOLPIDEM 5 MG TAB PO PRN (09:08)
[2018-06-28] MEDS ORDERED: ATROPINE SULFATE 0.1 MG/ML 10ML SYRINGE IV PRN (09:08)
[2018-06-28] MEDS ORDERED: MAG HYDROX/AL HYDROX/SIMETH 30 ML CUP PO PRN (09:08)
[2018-06-28] MEDS ORDERED: ONDANSETRON 4 MG/2 ML VIAL IVP STA (09:35)
--- NOTE | 2018-06-28 09:35 | PTCA ---
PERCUTANEOUSTRANS CORORONARY ANGIOGRAPHY DATE OF SERVICE: 06/28/2018 PROCEDURE: PTCA and stenting of a diffusely diseased dominant right coronary artery in 3 separate areas with drug-eluting stents. PERFORMED BY: Dr. Cheli Pena. Moderate conscious sedation time was 42 minutes. Patient was given morphine sulfate, Versed and oxygen saturation. Hemodynamics and EKG were monitored closely. CLINICAL INFORMATION: Mrs. Cammie Fernandes is an 87-year-old lady, a patient of Dr. Carter, who underwent a cardiac cath because of symptoms of angina and inferoapical ischemia. She had a cardiac cath which revealed that the previously stented LAD was patent. Circumflex had mild disease and RCA had 3 areas of severe disease with progression compared to the previous study from 2016. The mid RCA had progressed from what seemed to be a 50% to 60% to 70% to 80% lesion. She was advised PCI that was performed in the same setting. PROCEDURE NOTE: The existing 6-Vietnamese introducer in the right femoral artery was used to perform the procedure. I used a standard right Jj guide catheter to cannulate the right coronary artery and a run-through wire to cross the lesion. Predilatation was performed with a 2.25 caliber 15 mm long NC Trek balloon up to 12 atmospheres. I then deployed a 15 mm long 2.5 caliber Xience stent in the RCA just before the bifurcation and another 15 mm stent just before an acute marginal branch with a small gap in between that was disease free. A third 8 mm 2.5 caliber Xience stent was deployed before the first acute marginal branch. Excellent angiographic result was achieved. Patient had chest pain and EKG changes. Excellent angiographic result without complication was achieved. The sheath was taken out and Angio-Seal device used to secure hemostasis and she was sent to the room in a stable condition. Results were discussed with a friend who came with her, but there was no other family member available. Patient will be discharged tomorrow if she remains stable. MMODL / IJN: [id number] /
[2018-06-28] MEDS: SODIUM CHLORIDE 0.9% 1,000 ML IV SCH ×2 (09:38→19:45)
--- NOTE | 2018-06-28 09:41 | LTR ---
June 28, 2018 Re: Cammie Fernandes Dear Dr. Hutson: Thank you for the opportunity to participate in the care of Mrs. Cammie Fernandes. I am pleased to report to you that she had an excellent angiographic result and I expect that she will be discharged in 24 hours if she remains stable. Thank you for your referral and please call for questions. With kindest regards. Sincerely yours, MD AMITA Lopez / IMELDA: [id number] /
[2018-06-28] MEDS ORDERED: HYDROmorphone 0.5 MG/0.5 ML SYRINGE IVP STA (10:37)
[2018-06-28] MEDS ORDERED: HYDROmorphone 1 MG/ML 1 ML SYRINGE ONE (10:40)
[2018-06-28] MEDS: amLODIPine 5 MG TAB PO SCH ×2 (10:42→19:43)
[2018-06-28] MEDS: ATENOLOL 25 MG TAB PO SCH (19:43)
[2018-06-28 20:04] VITALS: RESP 18
[2018-06-28] MEDS ORDERED: ATORVASTATIN 40 MG TAB PO SCH (21:00)
[2018-06-28] MEDS ORDERED: LORATADINE 10 MG TAB PO SCH (21:00)
[2018-06-28] MEDS ORDERED: FAMOTIDINE 20 MG TAB PO SCH (21:00)
[2018-06-29 07:02] LABS: Basophils % (A) 0 %; Eosinophils # (A) 0.1 k/uL (0-0.7); Eosinophils % (A) 3 %; HCT 31.1 % (34.0-46.0); Hypochromasia Marked; Lymphocytes # (A) 0.5 k/uL (1.0-4.8); Lymphocytes % (A) 10 %; MCH 25.2 pg (25.0-35.0); MCHC 30.6 g/dL (31.0-37.0); MCV 82.2 fL (80.0-100.0); Monocytes # (A) 0.4 k/uL (0-1.0); Monocytes % (A) 8 %; Neutrophils # (A) 4.3 k/uL (1.3-7.7); Neutrophils % (A) 78 %; Platelet Count 172 k/uL (150-450); RBC 3.78 m/uL (3.80-5.40); RDW 15.1 % (11.5-15.5); WBC 5.5 k/uL (3.8-10.6)
[2018-06-29 07:08] LABS: Calcium 8.9 mg/dL (8.4-10.2); Potassium 4.7 mmol/L (3.5-5.1)
[2018-06-29 07:09] LABS: HGB 9.5 gm/dL (11.4-16.0)
[2018-06-29] MEDS ORDERED: CLOPIDOGREL 75 MG TAB PO SCH (09:00)
[2018-06-29] MEDS ORDERED: ASPIRIN 81 MG PO SCH (09:00)
[2018-06-29] MEDS ORDERED: ISOSORBIDE MONONITRATE ER 60 MG TAB.ER.24H PO SCH (09:00)
[2018-06-29 10:17] VITALS: BMI 28.3
[2018-06-29] MEDS: ATENOLOL 25 MG TAB PO SCH (10:26)
--- NOTE | 2018-06-29 11:50 | P.PN ---
Subjective Progress Note Date: 06/29/18 Discharge note This is a pleasant 87-year-old female with known history of coronary artery disease, who had a positive stress test as an outpatient, she also has history of hypertension and hyperlipidemia. She was advised to come to the hospital to undergo cardiac catheterization. Cardiac catheterization revealed patent stents in the LAD with critical lesions in the mid and distal RCA. Patient then underwent PTCA and stenting of the diffusely diseased dominant right coronary artery. Patient was seen and examined this morning, feels well, denies any chest pain or difficulty in breathing. Hemodynamically stable. EKG shows normal sinus rhythm with no changes from post-PCI. Objective - Vital Signs Vital signs: Vital Signs Temp 98.0 F 06/29/18 07:45 Pulse 82 06/29/18 07:45 Resp 18 06/29/18 07:45 BP 221/86 06/29/18 07:45 Pulse Ox 95 06/29/18 07:45 Intake & Output 06/28/18 06/29/18 06/29/18 18:59 06:59 18:59 Intake Total 982.8 375 200 Balance 982.8 375 200 Weight 68.492 kg 70.4 kg 70.4 kg Intake: IV 907.8 375 Sodium Chloride 0.9% 1, 525 375 000 ml @ 75 mls/hr IV . [id number] [facility] Rx#:[id number] Intake, IV Titration 75 Amount Sodium Chloride 0.9% 1, 75 000 ml @ 75 mls/hr IV . [id number] [facility] Rx#:[id number] Oral 200 Other: # Voids 1 1 - Exam PHYSICAL EXAMINATION: GENERAL: 87-year-old female in no acute distress at the time of my examination HEENT: Head is atraumatic, normocephalic. Pupils equal, round. Sclera anicteric. Conjunctiva are clear. Mucous membranes of the mouth are moist. Neck is supple. There is no elevated jugular venous pressure. No carotid bruit is heard. HEART EXAMINATION: Heart S1, S2 normal. No murmur or gallop heard. CHEST EXAMINATION: Lungs are clear to auscultation and precussion. No chest wall tenderness is noted on palpation or with deep breathing. ABDOMEN: Soft, nontender. Bowel sounds are heard. No organomegaly noted. EXTREMITIES: 2+ peripheral pulses with no evidence of peripheral edema and no calf tenderness noted. Right groin soft, no evidence of any hematoma. NEUROLOGIC patient is awake, alert and oriented 3 . . - Labs CBC & Chem 7: 06/29/18 06:07 06/29/18 06:07 Labs: Abnormal Lab Results - Last 24 Hours (Table) 06/29/18 06/29/18 Range/Units 06:07 06:07 RBC 3.78 L (3.80-5.40) m/uL Hgb 9.5 L D (11.4-16.0) gm/dL Hct 31.1 L (34.0-46.0) % MCHC 30.6 L (31.0-37.0) g/dL Lymphocytes # 0.5 L (1.0-4.8) k/uL Chloride 110 H (98-107) mmol/L Creatinine 1.21 H (0.52-1.04) mg/dL Assessment and Plan Plan: Assessment and plan #1 status post angioplasty and stenting of the right coronary artery #2 positive stress test #3 known history of coronary artery disease with prior stent placement #4 hypertension #5 hyperlipidemia Plan Patient may be able to be discharged home today. She's been advised to follow- up with Dr. Carter in the office in one week. Discharge medications include Norvasc 5 mg daily, Ecotrin 81 mg daily, atenolol 25 mg twice a day, Lipitor 40 mg daily, Plavix 75 mg daily, Pepcid 40 mg daily, and sublingual nitroglycerin as needed for chest pain. DNP note has been reviewed, I agree with a documented findings and plan of care. Patient was seen and examined.
[2018-06-29 12:55] VITALS: BP 178/93; PULSE 68; TEMP 98.2
== END 2018-06-29 15:28 | disposition home or self-care (01) ==
LOC: CATHCVL 05:37 → 3SCARD 16:08 → CATHCVL 06-29 15:28
PROVIDERS: ATTEND Internal Medicine Cardiovascular Disease
DX: I25.110 Atherosclerotic heart disease of native coronary artery with unstable angina pectoris (principal); I25.84 Coronary atherosclerosis due to calcified coronary lesion; I11.0 Hypertensive heart disease with heart failure; I50.40 Unspecified combined systolic (congestive) and diastolic (congestive) heart failure; Z72.0 Tobacco use; Z95.5 Presence of coronary angioplasty implant and graft; I34.1 Nonrheumatic mitral (valve) prolapse; I34.0 Nonrheumatic mitral (valve) insufficiency; Z79.899 Other long term (current) drug therapy
CPT/HCPCS: 93005; 93458; 80048; 82565; 84520; 85025; C9600; C1760; C1887; C1725; C1769 ×2; C1894; C1874; J2270; J0360; J2405; J2001; J3010; J1170 ×2; J0583; Q9967 ×2

== ENCOUNTER 2018-07-06 04:11 | Inpatient (IN) | payer MEDICARE, OTHER ==
--- NOTE | 2018-07-06 04:44 | ED ---
Chest Pain HPI - General Stated Complaint: SOB Time Seen by Provider: 07/06/18 04:21 Source: patient Mode of arrival: EMS Limitations: no limitations - History of Present Illness Initial Comments: This patient is a 87-year-old woman who presents to be evaluated for pain between her shoulder blades. She states that she had noted it coming on around 2 AM today. She states that she had been sitting watching television at the time. The patient took 3 nitroglycerin without pain changing much and when it was not relieved she called EMS. She does state that the pain has subsequently improved. In relation to the pain she did not have any associated symptoms. 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 MD Complaint: chest pain Onset/Timin -: hour(s) Onset: during rest Pain Location: other Severity: severe Quality: other ("Heartburn") Consistency: now resolved Improves With: nothing Worsens With: nothing Treatments Prior to Arrival: nitroglycerin, oxygen - Related Data Home Medications Medication Instructions Recorded Confirmed Cetirizine HCl [Zyrtec] 10 mg PO HS 07/08/14 07/06/18 Omeprazole [PriLOSEC] 20 mg PO AC-BRKFST 05/28/17 07/06/18 Ranitidine HCl [Zantac] 300 mg PO HS 05/05/18 07/06/18 Previous Rx's Medication Instructions Recorded Atenolol [Tenormin] 25 mg PO BID #60 tab 03/06/16 Aspirin 81 mg PO DAILY #30 chew 06/29/18 Atorvastatin [Lipitor] 40 mg PO HS #30 tab 06/29/18 Clopidogrel [Plavix] 75 mg PO DAILY #30 tab 06/29/18 Nitroglycerin Sl Tabs [Nitrostat] 0.4 mg SUBLINGUAL Q5M PRN #25 tab 06/29/18 amLODIPine [Norvasc] 5 mg PO HS #30 tab 06/29/18 Allergies Allergy/AdvReac Type Severity Reaction Status Date / Time No Known Allergies Allergy Verified 07/06/18 08:03 Review of Systems ROS Statement: Those systems with pertinent positive or pertinent negative responses have been documented in the HPI. ROS Other: All systems not noted in ROS Statement are negative. Constitutional: Denies: fever, weakness ENT: Denies: throat pain Respiratory: Reports: as per HPI, dyspnea (Chronic for 2 months). Denies: cough , wheezes, hemoptysis Cardiovascular: Reports: as per HPI, chest pain, edema. Denies: palpitations, orthopnea, syncope Gastrointestinal: Denies: abdominal pain, nausea, vomiting, melena, hematochezia Musculoskeletal: Denies: back pain Skin: Denies: rash Neurological: Denies: headache, weakness, numbness EKG Findings - EKG Results: EKG: interpreted by ERMD, sinus rhythm (With PAC. Rate proximally 67 bpm), normal axis, normal QRS, normal ST/T Past Medical History Past Medical History: Coronary Artery Disease (CAD), GERD/Reflux, Myocardial Infarction ([place]), Osteoarthritis (OA) Additional Past Medical History / Comment(s): varicose veins, Last Myocardial Infarction Date:: 2015 History of Any Multi-Drug Resistant Organisms: None Reported Past Surgical History: Appendectomy, Cholecystectomy, Heart Catheterization With Stent, Hernia Repair, Joint Replacement, Tonsillectomy Additional Past Surgical History / Comment(s): Pt states she had a cardiac stent about 15 yrs ago, LEFT BREAST benign BX, MALCOLM CATARACTS , malcolm inguinal hernia, RIGHT hip replacement Past Anesthesia/Blood Transfusion Reactions: Postoperative Nausea & Vomiting ( PONV) Additional Past Anesthesia/Blood Transfusion Reaction / Comment(s): Pt now states that after first cardiac stent about 15 yrs ago she went into "shock". Date of Last Stent Placement:: 02/2016 Past Psychological History: No Psychological Hx Reported Additional Psychological History / Comment(s): . Smoking Status: Former smoker Past Alcohol Use History: None Reported Additional Past Alcohol Use History / Comment(s): Pt started smoking in 1946 and quit in 1995. She smoked < 1 ppd. Past Drug Use History: None Reported Additional Drug Use History / Comment(s): Smoked 30-40 years, quit 20 years ago - Past Family History Mother Family Medical History: No Reported History Father Family Medical History: Myocardial Infarction ([place]) Additional Family Medical History / Comment(s): . Course Vital Signs 07/06/18 07/06/18 07/06/18 04:35 04:40 05:49 Temperature 97.3 F L Pulse Rate 73 70 Pulse Rate [ 73 Crime Scene Technician ] Respiratory 26 H 26 H 21 Rate Blood Pressure 201/105 197/76 O2 Sat by Pulse 99 96 Oximetry 07/06/18 07/06/18 06:31 07:22 Temperature 97.8 F Pulse Rate 61 63 Pulse Rate [ Crime Scene Technician ] Respiratory 19 19 Rate Blood Pressure 186/69 187/75 O2 Sat by Pulse 99 100 Oximetry Critical Care Time Critical Care Time: Yes (35 minutes) Disposition Clinical Impression: Chest pain, Elevated troponin I measurement Disposition: ADMITTED IP TO THIS [facility] Condition: Fair
[2018-07-06 04:59] LABS: Basophils % (A) 1 %; Eosinophils # (A) 0.1 k/uL (0-0.7); Eosinophils % (A) 2 %; HCT 31.6 % (34.0-46.0); HGB 9.9 gm/dL (11.4-16.0); Hypochromasia Moderate; Lymphocytes % (A) 16 %; MCH 24.9 pg (25.0-35.0); MCHC 31.3 g/dL (31.0-37.0); MCV 79.5 fL (80.0-100.0); Mean Platelet Volume 8.1; Monocytes # (A) 0.6 k/uL (0-1.0); Monocytes % (A) 9 %; Neutrophils # (A) 4.5 k/uL (1.3-7.7); Neutrophils % (A) 71 %; Platelet Count 224 k/uL (150-450); RBC 3.97 m/uL (3.80-5.40); RDW 15.3 % (11.5-15.5); WBC 6.4 k/uL (3.8-10.6)
--- NOTE | 2018-07-06 05:04 | XR ---
EXAM: XR Chest, 2 Views CLINICAL HISTORY: ITS.REASON XR Reason: Chest Pain TECHNIQUE: Frontal and lateral views of the chest. COMPARISON: No relevant prior studies available. FINDINGS: Lungs: Unremarkable. No consolidation. Pleural space: Unremarkable. No pneumothorax. Heart: Unremarkable. No cardiomegaly. Mediastinum: Unremarkable. Bones/joints: Unremarkable. IMPRESSION: Normal chest x-rays.
[2018-07-06 05:09] LABS: Albumin 3.8 g/dL (3.5-5.0); Calcium 8.9 mg/dL (8.4-10.2); Magnesium 2.3 mg/dL (1.6-2.3); Total Bilirubin 0.3 mg/dL (0.2-1.3); Total Protein 6.5 g/dL (6.3-8.2)
[2018-07-06 05:11] LABS: INR 0.9 (<1.2); Partial Thromboplastin Time 23.1 sec (22.0-30.0); Prothrombin Time 9.8 sec (9.0-12.0)
[2018-07-06 05:21] LABS: Creatine Kinase MB 1.2 ng/mL (0.0-2.4)
[2018-07-06 05:26] LABS: Troponin I 0.052 ng/mL (0.000-0.034)
[2018-07-06 05:32] LABS: Potassium 4.8 mmol/L (3.5-5.1)
[2018-07-06] MEDS ORDERED: HEPARIN SODIUM,PORCINE 5,000 UNIT/ML 1 ML VIAL IV ONE (05:36)
[2018-07-06] MEDS ORDERED: NITROGLYCERIN SL TABS 0.4 MG TAB SUBLINGUAL PRN (06:22)
[2018-07-06] MEDS: HEPARIN SOD,PORK IN 0.45% NACL 25,000 UNIT in 0.45% NACL 1 250ML.BAG IV SCH (06:28)
[2018-07-06] MEDS ORDERED: SODIUM CHLORIDE 0.9% 1,000 ML IV SCH (06:30)
[2018-07-06 08:08] LABS: Glucose,Whole Blood 93 mg/dL (75-99)
[2018-07-06] MEDS: CLOPIDOGREL 75 MG TAB PO SCH (08:49)
[2018-07-06] MEDS: ISOSORBIDE MONONITRATE ER 60 MG TAB.ER.24H PO SCH (08:49)
[2018-07-06] MEDS: FUROSEMIDE 20 MG TAB PO SCH ×2 (08:49→16:19)
[2018-07-06] MEDS: PANTOPRAZOLE 40 MG TABLET PO SCH (08:49)
[2018-07-06 08:56] VITALS: BMI 28.5
[2018-07-06] MEDS ORDERED: ATENOLOL 25 MG TAB PO SCH (09:00)
[2018-07-06 12:26] LABS: Creatine Kinase MB 0.9 ng/mL (0.0-2.4)
[2018-07-06 12:58] LABS: Troponin I 0.051 ng/mL (0.000-0.034)
--- NOTE | 2018-07-06 14:19 | P.CRDCN ---
History of Present Illness History of present illness: This is Dr. Laureano dictating a consult on this patient The patient was interviewed and examined by me IMPRESSION / ASSESSMENT: Patient presented with interscapular discomfort similar to when she had her OK Recent critical rca stenosis mid and distal status post 3 drug-eluting stents last Hypertension Coronary disease status post stenting of the proximal and mid LAD in the past PLAN: Patient intolerant of atorvastatin, change to Pravachol 80 mg by mouth daily hypertension management Switched to carvedilol 12.5 g twice daily. Atenolol is being DC'd today Tomorrow I will reassess her blood pressure and see if she needs 10 mg of amlodipine Heparin was stopped tomorrow HPI Patient presented with upper back pain interscapular similar to when she had her acute myocardial infarction. She also has shortness of breath with exertion which is more chronic in nature She felt that his symptoms are very similar to when she had her heart attack ROS: No fever chills or rigors, no cough, phlegm or expectoration, no nausea, vomiting or diarrhea, no hematuria, dysuria, no musculoskeletal complaints, no strokes or seizures, no skin lesions. EXAMINATION Uncontrolled blood pressure 190/85 mmHg automatic cuff Respirations 20-22 Pulse rate in the 60s and 70s Afebrile 97.8F Breath sounds are reduced bilaterally heart sounds. Soft abdomen soft extremities warm no edema REVIEW OF LABS, ECG White count 6.4 thousand hemoglobin 9.9 BUN and creatinine are 24 and 1.37 Sodium 139 potassium 4.8 Troponin 0.05 and 0.05 Past Medical History Past Medical History: Coronary Artery Disease (CAD), GERD/Reflux, Myocardial Infarction ([place]), Osteoarthritis ([place]) Additional Past Medical History / Comment(s): varicose veins, Last Myocardial Infarction Date:: 2015 History of Any Multi-Drug Resistant Organisms: None Reported Past Surgical History: Appendectomy, Cholecystectomy, Heart Catheterization With Stent, Hernia Repair, Joint Replacement, Tonsillectomy Additional Past Surgical History / Comment(s): Pt states she had a cardiac stent 06/28/2018. 02/2016, about 15 yrs ago. LEFT BREAST benign BX, MALCOLM CATARACTS , malcolm inguinal hernia, RIGHT hip replacement Past Anesthesia/Blood Transfusion Reactions: No Reported Reaction Additional Past Anesthesia/Blood Transfusion Reaction / Comment(s): Pt now states that after first cardiac stent about 15 yrs ago she went into "shock". "Pt states she is unsure if she has had any blood transfusions" Date of Last Stent Placement:: 06/28/2018 Past Psychological History: No Psychological Hx Reported Additional Psychological History / Comment(s): . Smoking Status: Former smoker Past Alcohol Use History: None Reported Additional Past Alcohol Use History / Comment(s): Pt started smoking in 1946 and quit in 1995. She smoked < 1 ppd. Past Drug Use History: None Reported Additional Drug Use History / Comment(s): Smoked 30-40 years, quit 20 years ago - Past Family History Mother Family Medical History: No Reported History Father Family Medical History: Myocardial Infarction ([place]) Additional Family Medical History / Comment(s): Pt states she believes her father had a heart attack but is unsure. Medications and Allergies Home Medications Medication Instructions Recorded Confirmed Type Cetirizine HCl [Zyrtec] 10 mg PO HS 07/08/14 07/06/18 History Atenolol [Tenormin] 25 mg PO BID #60 tab 03/06/16 07/06/18 Rx Omeprazole [PriLOSEC] 20 mg PO AC-BRKFST 05/28/17 07/06/18 History Ranitidine HCl [Zantac] 300 mg PO HS 05/05/18 07/06/18 History Aspirin 81 mg PO DAILY #30 chew 06/29/18 07/06/18 Rx Atorvastatin [Lipitor] 40 mg PO HS #30 tab 06/29/18 07/06/18 Rx Clopidogrel [Plavix] 75 mg PO DAILY #30 tab 06/29/18 07/06/18 Rx Nitroglycerin Sl Tabs [Nitrostat] 0.4 mg SUBLINGUAL Q5M PRN #25 tab 06/29/18 Rx amLODIPine [Norvasc] 5 mg PO HS #30 tab 06/29/18 07/06/18 Rx Allergies Allergy/AdvReac Type Severity Reaction Status Date / Time No Known Allergies Allergy Verified 07/06/18 08:03 Physical Exam Vitals: Vital Signs Temp Pulse Pulse Resp BP BP Pulse Ox 07/06/18 12:00 69 21 190/85 07/06/18 11:29 97.8 F 60 22 190/85 100 07/06/18 10:00 71 12 190/87 97 07/06/18 09:00 66 21 201/69 99 12/29/18 08:00 97.6 F 81 31 H 152/90 07/06/18 07:22 97.8 F 63 19 187/75 100 07/06/18 06:31 61 19 186/69 99 07/06/18 05:49 70 21 197/76 96 07/06/18 04:40 73 26 H 07/06/18 04:35 97.3 F L 73 26 H 201/105 99 Intake and Output 07/05/18 07/06/18 07/06/18 22:59 06:59 14:59 Intake Total 375 Output Total 910 Balance -535 Intake: IV 375 Sodium Chloride 0.9% 1, 375 000 ml @ 75 mls/hr IV . [id number] [facility] Rx#:[id number] Output: Urine 910 Other: Voiding Method Bedside Commode # Bowel Movements 1 Weight 69.4 kg 70.8 kg Results 07/06/18 04:30 07/06/18 04:30 Cardiac Enzymes 07/06/18 07/06/18 07/06/18 Range/Units 04:30 04:30 11:49 AST 23 (14-36) U/L CK-MB (CK-2) 1.2 0.9 (0.0-2.4) ng/mL Troponin I 0.052 H* 0.051 H* (0.000-0.034) ng/mL Coagulation 07/06/18 07/06/18 Range/Units 04:30 11:49 PT 9.8 (9.0-12.0) sec APTT 23.1 48.1 H (22.0-30.0) sec CBC 07/06/18 Range/Units 04:30 WBC 6.4 (3.8-10.6) k/uL RBC 3.97 (3.80-5.40) m/uL Hgb 9.9 L (11.4-16.0) gm/dL Hct 31.6 L (34.0-46.0) % Plt Count 224 (150-450) k/uL Comprehensive Metabolic Panel 07/06/18 Range/Units 04:30 Sodium 139 (137-145) mmol/L Potassium 4.8 (3.5-5.1) mmol/L Chloride 108 H (98-107) mmol/L Carbon Dioxide 25 (22-30) mmol/L BUN 24 H (7-17) mg/dL Creatinine 1.37 H (0.52-1.04) mg/dL Glucose 98 (74-99) mg/dL Calcium 8.9 (8.4-10.2) mg/dL AST 23 (14-36) U/L ALT 17 (9-52) U/L Alkaline Phosphatase 75 (38-126) U/L Total Protein 6.5 (6.3-8.2) g/dL Albumin 3.8 (3.5-5.0) g/dL Current Medications Generic Name Dose Route Start Last Admin Trade Name Freq PRN Reason Stop Dose Admin Amlodipine Besylate 5 mg 07/06/18 21:00 Norvasc PO HS [facility] [place] Aspirin 325 mg 07/07/18 09:00 Aspirin PO DAILY [facility] [place] Carvedilol 12.5 mg 07/06/18 17:30 Coreg PO BID-W/MEALS [facility] [place] Clopidogrel Bisulfate 75 mg 07/06/18 09:00 07/06/18 08:49 Plavix PO 75 mg DAILY [facility] Administration Famotidine 40 mg 07/06/18 21:00 Pepcid PO HS [facility] Furosemide 20 mg 07/06/18 09:00 07/06/18 08:49 Lasix PO 20 mg BID@0900,1600 [facility] [place] Administration Heparin Sodium (Porcine) 0 unit 07/06/18 05:36 Heparin IV PER PROTOCOL PRN Low PTT Protocol Heparin Sodium/Sodium Chloride 250 mls @ 8.32 mls/hr 07/06/18 06:00 07/06/18 06:28 25,000 unit/ Sodium Chloride IV 12 units/kg/hr .Q24H [facility] 8.32 mls/hr Administration Protocol 12 UNITS/KG/HR Isosorbide Mononitrate 60 mg 07/06/18 09:00 07/06/18 08:49 Imdur PO 60 mg DAILY [facility] Administration Loratadine 10 mg 07/06/18 21:00 Claritin PO HS [facility] Nitroglycerin 0.4 mg 07/06/18 06:22 Nitrostat SUBLINGUAL Q5M PRN Chest Pain Pantoprazole Sodium 40 mg 07/06/18 07:30 07/06/18 08:49 Protonix PO 40 mg AC-BRKFST [facility] Administration Pravastatin Sodium 80 mg 07/06/18 21:00 Pravachol PO HS [facility] Intake and Output 07/05/18 07/06/18 07/06/18 22:59 06:59 14:59 Intake Total 375 Output Total 910 Balance -535 Intake: IV 375 Sodium Chloride 0.9% 1, 375 000 ml @ 75 mls/hr IV . [id number] [facility] Rx#:[id number] Output: Urine 910 Other: Voiding Method Bedside Commode # Bowel Movements 1 Weight 69.4 kg 70.8 kg Patient Weight 07/07/18 06:59 Weight 70.8 kg 07/06/18 04:30 07/06/18 04:30
--- NOTE | 2018-07-06 15:46 | ECHOF ---
Referral Reason:repeat, AMI MEASUREMENTS -------- HEIGHT: 157.5 cm WEIGHT: 70.8 kg BP: 187/75 IVSd: 1.2 cm (0.6 - 1.1) LVIDd: 3.9 cm (3.9 - 5.3) LVPWd: 1.2 cm (0.6 - 1.1) IVSs: 1.5 cm LVIDs: 2.1 cm LVPWs: 1.5 cm RVIDd: 2.9 cm (< 3.3) LAESV Index (A-L): 23.98 ml/m Ao Diam: 2.7 cm (2.0 - 3.7) LA Diam: 2.6 cm (2.7 - 3.8) AV Cusp: 1.5 cm (1.5 - 2.6) MV E Ridge: 1.27 m/s MV DecT: 232 ms MV A Ridge: 1.07 m/s MV E/A Ratio: 1.18 RAP: 5.00 mmHg RVSP: 10.23 mmHg FINDINGS -------- Sinus rhythm. This was a technically adequate study. The left ventricular size is normal. There is mild concentric left ventricular hypertrophy. Overa ll left ventricular systolic function is normal with, an EF between 55 - 60 %. The right ventricle is normal in size and function. Normal LA size by volume 22+/-6 ml/m2. The right atrium is normal in size. There is mild aortic valve sclerosis. There is no evidence of aortic regurgitation. There is no e vidence of aortic stenosis. The mitral valve leaflets are mildly thickened. Moderate mitral regurgitation is present. Mild tricuspid regurgitation present. Right ventricular systolic pressure is normal at < 35 mmHg. There is no evidence of pulmonary hypertension. The pulmonic valve was not well visualized. The aortic root size is normal. Normal inferior vena cava with normal inspiratory collapse consistent with estimated right atrial pre ssure of 5 mmHg. There is no pericardial effusion. CONCLUSIONS -------- 1. Sinus rhythm. 2. This was a technically adequate study. 3. The left ventricular size is normal. 4. There is mild concentric left ventricular hypertrophy. 5. Overall left ventricular systolic function is normal with, an EF between 55 - 60 %. 6. Normal LA size by volume 22+/-6 ml/m2. 7. There is mild aortic valve sclerosis. 8. The mitral valve leaflets are mildly thickened. 9. Moderate mitral regurgitation is present. 10. Mild tricuspid regurgitation present. 11. Right ventricular systolic pressure is normal at < 35 mmHg. 12. There is no evidence of pulmonary hypertension. 13. The pulmonic valve was not well visualized. 14. The aortic root size is normal. 15. There is no pericardial effusion. TE[employer]ER [employer]ESS CLIPPING: Emir Fabian RDCS
[2018-07-06 16:46] LABS: Creatine Kinase MB 1.2 ng/mL (0.0-2.4)
[2018-07-06 16:52] LABS: Troponin I 0.05 ng/mL (0.000-0.034)
[2018-07-06] MEDS: CARVEDILOL 12.5 MG TAB PO SCH (17:37)
[2018-07-06] MEDS: amLODIPine 5 MG TAB PO SCH (20:02)
[2018-07-06] MEDS: PRAVASTATIN SODIUM 80 MG TAB PO SCH (20:03)
[2018-07-06] MEDS: FAMOTIDINE 20 MG TAB PO SCH (20:03)
[2018-07-06] MEDS: LORATADINE 10 MG TAB PO SCH (20:03)
[2018-07-06] MEDS: TEMAZEPAM 15 MG CAP PO PRN (20:51)
[2018-07-06] MEDS ORDERED: ATORVASTATIN 40 MG TAB PO SCH (21:00)
--- NOTE | 2018-07-06 21:04 | P.HPIM ---
History of Present Illness H&P Date: 07/06/18 Chief Complaint: Chest pain 87-year-old female was seen evaluated examined in ICU patient has been admitted to hospital with chest pain this started earlier this morning patient the pain eased up with nitroglycerin EMS was notified and was brought into emergency department was subsequently evaluated, patient recently had a cardiac catheter angiogram have multiple stent placed for details please refer to cardiovascular services note and the patient is stable denies any chest pain she is currently being considered for maximal medical therapy she is also on IV heparin, on specific questioning she denies any seizure-like to a loss of consciousness or hemiparesis, denies any cough or sputum production denies any chest tightness or pain, denies any nausea vomiting diarrhea Review of Systems All systems: negative Past Medical History Past Medical History: Coronary Artery Disease (CAD), GERD/Reflux, Myocardial Infarction (DC), Osteoarthritis (OA) Additional Past Medical History / Comment(s): varicose veins, Last Myocardial Infarction Date:: 2015 History of Any Multi-Drug Resistant Organisms: None Reported Past Surgical History: Appendectomy, Cholecystectomy, Heart Catheterization With Stent, Hernia Repair, Joint Replacement, Tonsillectomy Additional Past Surgical History / Comment(s): Pt states she had a cardiac stent 06/28/2018. 02/2016, about 15 yrs ago. LEFT BREAST benign BX, MALCOLM CATARACTS , malcolm inguinal hernia, RIGHT hip replacement Past Anesthesia/Blood Transfusion Reactions: No Reported Reaction Additional Past Anesthesia/Blood Transfusion Reaction / Comment(s): Pt now states that after first cardiac stent about 15 yrs ago she went into "shock". "Pt states she is unsure if she has had any blood transfusions" Date of Last Stent Placement:: 06/28/2018 Past Psychological History: No Psychological Hx Reported Additional Psychological History / Comment(s): . Smoking Status: Former smoker Past Alcohol Use History: None Reported Additional Past Alcohol Use History / Comment(s): Pt started smoking in 1946 and quit in 1995. She smoked < 1 ppd. Past Drug Use History: None Reported Additional Drug Use History / Comment(s): Smoked 30-40 years, quit 20 years ago - Past Family History Mother Family Medical History: No Reported History Father Family Medical History: Myocardial Infarction (DC) Additional Family Medical History / Comment(s): Pt states she believes her father had a heart attack but is unsure. Medications and Allergies Home Medications Medication Instructions Recorded Confirmed Type Cetirizine HCl [Zyrtec] 10 mg PO HS 07/08/14 07/06/18 History Atenolol [Tenormin] 25 mg PO BID #60 tab 03/06/16 07/06/18 Rx Omeprazole [PriLOSEC] 20 mg PO AC-BRKFST 05/28/17 07/06/18 History Ranitidine HCl [Zantac] 300 mg PO HS 05/05/18 07/06/18 History Aspirin 81 mg PO DAILY #30 chew 06/29/18 07/06/18 Rx Atorvastatin [Lipitor] 40 mg PO HS #30 tab 06/29/18 07/06/18 Rx Clopidogrel [Plavix] 75 mg PO DAILY #30 tab 06/29/18 07/06/18 Rx Nitroglycerin Sl Tabs [Nitrostat] 0.4 mg SUBLINGUAL Q5M PRN #25 tab 06/29/18 Rx amLODIPine [Norvasc] 5 mg PO HS #30 tab 06/29/18 07/06/18 Rx Allergies Allergy/AdvReac Type Severity Reaction Status Date / Time No Known Allergies Allergy Verified 07/06/18 08:03 Physical Exam Vitals: Vital Signs Temp Pulse Pulse Resp BP BP Pulse Ox 07/06/18 20:00 97.9 F 62 20 132/50 98 07/06/18 16:00 63 20 138/63 07/06/18 15:11 154/62 07/06/18 15:00 58 L 19 07/06/18 14:00 66 20 07/06/18 13:00 61 17 07/06/18 12:00 69 21 190/85 07/06/18 11:29 97.8 F 60 22 190/85 100 07/06/18 10:00 71 12 190/87 97 07/06/18 09:00 66 21 201/69 99 07/06/18 08:00 97.6 F 81 31 H 152/90 07/06/18 07:22 97.8 F 63 19 187/75 100 07/06/18 06:31 61 19 186/69 99 07/06/18 05:49 70 21 197/76 96 07/06/18 04:40 73 26 H 07/06/18 04:35 97.3 F L 73 26 H 201/105 99 Intake and Output 07/06/18 07/06/18 07/06/18 06:59 14:59 22:59 Intake Total 545 Output Total 1210 300 Balance -665 -300 Intake: IV 545 Sodium Chloride 0.9% 1, 525 000 ml @ 75 mls/hr IV . [id number] [facility] Rx#:[id number] Sodium Chloride 0.9% as 20 carrier at KVO Output: Urine 1210 300 Other: Voiding Method Bedside Commode Bedside Commode # Bowel Movements 2 Weight 69.4 kg 70.8 kg - Constitutional General appearance: average body habitus, cooperative, disheveled, no acute distress, thin - EENT Eyes: EOMI, PERRLA, poor dentition, normal appearance Ears: bilateral: normal - Neck Neck: normal ROM Carotids: bilateral: upstroke normal, bruit absent Thyroid: bilateral: normal size - Respiratory Respiratory: bilateral: CTA - Cardiovascular Rhythm: regular Heart sounds: normal: S1, S2 - Gastrointestinal General gastrointestinal: soft - Neurologic Neurologic: CNII-XII intact - Musculoskeletal Musculoskeletal: gait normal, generalized weakness, strength equal bilaterally - Psychiatric Psychiatric: A&O x's 3, appropriate affect, intact judgment & insight Results Results: Chest x-ray is unremarkable, EKG reveals few PACs, echocardiogram revealed ejection fraction of 55%, no evidence of pulmonary hypertension, mild LVH noted CBC & Chem 7: 07/06/18 04:30 07/06/18 04:30 Labs: Abnormal Lab Results - Last 24 Hours (Table) 07/06/18 07/06/18 07/06/18 Range/Units 04:30 04:30 04:30 Hgb 9.9 L (11.4-16.0) gm/dL Hct 31.6 L (34.0-46.0) % MCV 79.5 L (80.0-100.0) fL MCH 24.9 L (25.0-35.0) pg APTT (22.0-30.0) sec Chloride 108 H (98-107) mmol/L BUN 24 H (7-17) mg/dL Creatinine 1.37 H (0.52-1.04) mg/dL Troponin I 0.052 H* (0.000-0.034) ng/mL 1207/06/18 07/06/18 Range/Units 11:49 11:49 16:08 Hgb (11.4-16.0) gm/dL Hct (34.0-46.0) % MCV (80.0-100.0) fL MCH (25.0-35.0) pg APTT 48.1 H (22.0-30.0) sec Chloride (98-107) mmol/L BUN (7-17) mg/dL Creatinine (0.52-1.04) mg/dL Troponin I 0.051 H* 0.050 H* (0.000-0.034) ng/mL Thrombosis Risk Factor Assmnt - Choose All That Apply Each Factor Represents 1 point: History of prior major surgery (<1month), Varicose veins Other Risk Factors: Yes Each Risk Factor Represents 3 Points: Age 75 years or older Thrombosis Risk Factor Assessment Total Risk Factor Score: 5 Thrombosis Risk Factor Assessment Level: High Risk Assessment and Plan Assessment: Anginal pain Coronary artery disease with recent 3 stent placement in RCA Hypertension hypertensive cardiovascular disease Story of prior stent placement in LAD mid and proximal portion GERD Dyslipidemia Plan: As per discussion with cardiovascular services plan is to and for maximal medical therapy Continue supportive care Monitor closely in ICU Continue heparin for now Further recommendations pending plan of care as per clinical response of the patient Time with Patient: Greater than 30
[2018-07-07 04:42] LABS: Basophils % (A) 1 %; Eosinophils # (A) 0.2 k/uL (0-0.7); Eosinophils % (A) 3 %; HCT 29.8 % (34.0-46.0); HGB 9.2 gm/dL (11.4-16.0); Hypochromasia Moderate; Lymphocytes # (A) 1.3 k/uL (1.0-4.8); Lymphocytes % (A) 24 %; MCH 24.5 pg (25.0-35.0); MCHC 30.8 g/dL (31.0-37.0); MCV 79.4 fL (80.0-100.0); Mean Platelet Volume 9.3; Monocytes # (A) 0.5 k/uL (0-1.0); Monocytes % (A) 10 %; Neutrophils # (A) 3.1 k/uL (1.3-7.7); Neutrophils % (A) 60 %; Platelet Count 183 k/uL (150-450); RBC 3.75 m/uL (3.80-5.40); RDW 15.2 % (11.5-15.5); WBC 5.2 k/uL (3.8-10.6)
[2018-07-07] MEDS: HEPARIN SODIUM,PORCINE 5,000 UNIT/ML 1 ML VIAL IV PRN (05:22)
[2018-07-07 05:37] LABS: Calcium 8.5 mg/dL (8.4-10.2); Magnesium 2.2 mg/dL (1.6-2.3); Phosphorus 4.2 mg/dL (2.5-4.5); Potassium 3.8 mmol/L (3.5-5.1)
[2018-07-07] MEDS ORDERED: Potassium Replacement Protocol 1 EACH MISC MISCELLANE PRN (05:51)
[2018-07-07] MEDS ORDERED: POTASSIUM CHLORIDE ER 20 MEQ TAB.ER PO SCH (06:00)
[2018-07-07] MEDS: CARVEDILOL 12.5 MG TAB PO SCH ×2 (06:30→16:14)
[2018-07-07] MEDS: PANTOPRAZOLE 40 MG TABLET PO SCH (06:30)
[2018-07-07] MEDS: HEPARIN SOD,PORK IN 0.45% NACL 25,000 UNIT in 0.45% NACL 1 250ML.BAG IV SCH ×2 (07:08→11:49)
[2018-07-07] MEDS: FUROSEMIDE 20 MG TAB PO SCH ×2 (08:54→16:13)
[2018-07-07] MEDS: ASPIRIN 325 MG TAB PO SCH (08:54)
[2018-07-07] MEDS: CLOPIDOGREL 75 MG TAB PO SCH (08:54)
[2018-07-07] MEDS: ISOSORBIDE MONONITRATE ER 60 MG TAB.ER.24H PO SCH (08:54)
--- NOTE | 2018-07-07 16:14 | P.PN ---
Subjective Minna is doing well. She has no chest discomfort no upper back discomfort she looks very comfortable she is lying flat in bed Blood pressure is 131/49 and 152/60 mmHg pulse rate is in the 60s she is afebrile Heart sounds S1-S2 normal no murmurs Breath sounds are reduced bilaterally but no rhonchi no crackles Abdomen soft Extremities warm no edema Impression Angina like symptoms post coronary stenting with abnormal troponins which are borderline with a flat trend I don't believe this is elevation in troponin is an acute event. This is most likely result of last week's intervention and hence the troponins are flat Suggest Maximize antihypertensive therapy She will be transferred to [facility]. Objective - Vital Signs Vital signs: Vital Signs Temp 98.1 F 07/07/18 12:00 Pulse 67 07/07/18 12:00 Resp 19 07/07/18 12:00 BP 152/60 07/07/18 12:00 Pulse Ox 100 07/07/18 12:00 Intake & Output 07/06/18 07/07/18 07/07/18 18:59 06:59 18:59 Intake Total 545 810.667 222.468 Output Total 1510 2052 600 Balance -965 -1241.333 -377.532 Weight 70.8 kg 69.6 kg Intake: IV 545 120 160 Sodium Chloride 0.9% 1, 525 000 ml @ 75 mls/hr IV . [id number] [facility] Rx#:[id number] Sodium Chloride 0.9% as 20 120 160 carrier at KVO Intake, IV Titration 190.667 62.468 Amount Heparin Sod,Pork in 0.45% 190.667 62.468 NaCl 25,000 unit In 0.45 % NaCl 1 250ml.bag @ 12 UNITS/KG/HR 8.32 mls/hr IV .Q24H [facility] Rx#: [id number] Oral 500 Output: Urine 1510 2050 600 Stool 2 Other: Voiding Method Bedside Commode Bedside Commode Bedside Commode # Voids 2 1 # Bowel Movements 2 1 1 - Labs CBC & Chem 7: 07/07/18 04:22 07/07/18 04:22 Labs: Abnormal Lab Results - Last 24 Hours (Table) 07/06/18 07/07/18 07/07/18 Range/Units 16:08 04:22 04:22 RBC 3.75 L (3.80-5.40) m/uL Hgb 9.2 L (11.4-16.0) gm/dL Hct 29.8 L (34.0-46.0) % MCV 79.4 L (80.0-100.0) fL MCH 24.5 L (25.0-35.0) pg MCHC 30.8 L (31.0-37.0) g/dL APTT (22.0-30.0) sec BUN 20 H (7-17) mg/dL Creatinine 1.22 H (0.52-1.04) mg/dL Troponin I 0.050 H* (0.000-0.034) ng/mL 07/07/18 07/07/18 Range/Units 04:22 10:58 RBC (3.80-5.40) m/uL Hgb (11.4-16.0) gm/dL Hct (34.0-46.0) % MCV (80.0-100.0) fL MCH (25.0-35.0) pg MCHC (31.0-37.0) g/dL APTT 44.2 H 65.7 H (22.0-30.0) sec BUN (7-17) mg/dL Creatinine (0.52-1.04) mg/dL Troponin I (0.000-0.034) ng/mL
[2018-07-07] MEDS: methylPREDNISolone SOD SUCCI 125 MG/2 ML VIAL IV SCH ×2 (17:41→23:41)
--- NOTE | 2018-07-07 18:30 | PN ---
PROGRESS NOTE DATE OF SERVICE: 07/07/2018 She was seen on 07/07/2018. She complains of shortness of breath and on minimal exertion has wheezing. On physical examination, respiratory rate is 17, pulse rate of 71, temperature 98.3, blood pressure 152/96, O2 saturation on room air is 94%. HEENT is unremarkable. Chest reveals wheeze on forced expiration. Cardiovascular system is S1, S2. Abdomen is soft. There is no pedal edema. Labs and x-rays were reviewed. IMPRESSION: At this time is: 1. Coronary artery disease status post angioplasty. 2. Bronchospasm, most likely related to occult asthma or chronic obstructive pulmonary disease. Would do a short course of steroids, bronchodilators, aerosolized steroids along with cardiac medications. She apparently had been short of breath for a few months. Depending on how she does, we should make further changes to her care. MMRICKEYL / JANETHN: [id number] /
[2018-07-07] MEDS: BUDESONIDE 0.5 MG/2 ML NEBU INHALATION SCH (20:29)
[2018-07-07] MEDS: LORATADINE 10 MG TAB PO SCH (20:41)
[2018-07-07] MEDS: FAMOTIDINE 20 MG TAB PO SCH (20:41)
[2018-07-07] MEDS: amLODIPine 5 MG TAB PO SCH (20:49)
[2018-07-07] MEDS: PRAVASTATIN SODIUM 80 MG TAB PO SCH (20:49)
[2018-07-07] MEDS: TEMAZEPAM 15 MG CAP PO PRN (21:02)
[2018-07-08] MEDS: methylPREDNISolone SOD SUCCI 125 MG/2 ML VIAL IV SCH ×3 (05:12→18:00)
[2018-07-08] MEDS: BUDESONIDE 0.5 MG/2 ML NEBU INHALATION SCH ×2 (06:57→19:33)
[2018-07-08] MEDS: ALBUTEROL NEBULIZED 2.5 MG/3 ML INHALATION PRN (06:58)
[2018-07-08 07:14] LABS: Basophils % (A) 0 %; Eosinophils % (A) 0 %; HCT 33.8 % (34.0-46.0); HGB 10.7 gm/dL (11.4-16.0); Hypochromasia Moderate; Lymphocytes # (A) 0.7 k/uL (1.0-4.8); Lymphocytes % (A) 11 %; MCH 24.9 pg (25.0-35.0); MCHC 31.5 g/dL (31.0-37.0); MCV 79.1 fL (80.0-100.0); Mean Platelet Volume 8.4; Monocytes # (A) 0.1 k/uL (0-1.0); Monocytes % (A) 1 %; Neutrophils # (A) 5.4 k/uL (1.3-7.7); Neutrophils % (A) 87 %; Platelet Count 226 k/uL (150-450); RBC 4.27 m/uL (3.80-5.40); WBC 6.2 k/uL (3.8-10.6)
[2018-07-08 08:13] LABS: Calcium 9.1 mg/dL (8.4-10.2); Phosphorus 3.7 mg/dL (2.5-4.5); Potassium 4.2 mmol/L (3.5-5.1)
[2018-07-08] MEDS: HEPARIN SODIUM,PORCINE 5,000 UNIT/ML 1 ML VIAL IV PRN (08:27)
[2018-07-08] MEDS: CLOPIDOGREL 75 MG TAB PO SCH (08:36)
[2018-07-08] MEDS: ISOSORBIDE MONONITRATE ER 60 MG TAB.ER.24H PO SCH (08:36)
[2018-07-08] MEDS: FUROSEMIDE 20 MG TAB PO SCH ×2 (08:36→15:49)
[2018-07-08] MEDS: ASPIRIN 325 MG TAB PO SCH (08:36)
[2018-07-08] MEDS: PANTOPRAZOLE 40 MG TABLET PO SCH (08:36)
[2018-07-08] MEDS: CARVEDILOL 12.5 MG TAB PO SCH ×2 (08:36→18:00)
--- NOTE | 2018-07-08 12:20 | P.PN ---
Subjective Progress Note Date: 07/08/18 Cammie Fernandes is an 87-year-old female patient of Dr. Hutson who was admitted to [facility] on 07/06/2018 patient was seen by Dr. Bean [place] and Dr. Marek Pena on 07/06/2018 and 07/07/2018 during my absence. I am starting to take care of patient today. Patient initially presented to [facility] with a chief complaint of chest pain she describes a sharp pain in the middle of her chest radiating to the back between her shoulder blades. She had minimal elevation in troponin and was admitted to intensive care unit. Patient recently had angioplasty and stent placement to the right coronary artery on 06/28/2018 Patient was seen and examined by myself on 07/08/2018 she is alert and oriented 3 in no apparent distress she is sitting up in a chair she denies any chest pain at this time she is complaining of shortness of breath yesterday she was evaluated by Dr. Violette Pena and had significant bronchospasm and was started on IV steroids and inhaled bronchodilators, patient stated that she was never diagnosed with COPD or asthma however she has a prolonged history of smoking she states that she smoked half a pack per day for about 40 years she quit 25 years ago. Patient denies any cough or any sputum production there is no nausea or vomiting no abdominal pain no diarrhea and no urinary symptoms. Objective - Vital Signs Vital signs: Vital Signs Temp 97.8 F 07/08/18 06:52 Pulse 78 07/08/18 07:08 Resp 14 07/08/18 06:52 BP 110/70 07/08/18 06:52 Pulse Ox 96 07/08/18 06:52 Intake & Output 07/07/18 07/08/18 07/08/18 18:59 06:59 18:59 Intake Total 302.468 120 201.483 Output Total 850 Balance -547.532 120 201.483 Weight 63 kg Intake: IV 240 120 Sodium Chloride 0.9% as 240 120 carrier at KVO Intake, IV Titration 62.468 201.483 Amount Heparin Sod,Pork in 0.45% 62.468 201.483 NaCl 25,000 unit In 0.45 % NaCl 1 250ml.bag @ 12 UNITS/KG/HR 8.32 mls/hr IV .Q24H [facility] Rx#: [id number] Output: Urine 850 Other: Voiding Method Bedside Commode # Voids 1 1 1 # Bowel Movements 1 - Exam In general patient is alert and oriented 3 in no apparent distress HEENT head normocephalic and atraumatic Neck is supple no JVD no goiter no lymphadenopathy Chest exam reveals a few scattered crackles no wheezing Cardiac exam reveals regular heart sounds S1 and S2 no gallops no murmurs Abdomen is soft nontender no organomegaly with normal bowel sounds Extremity exam reveals minimal edema no cyanosis or clubbing Neurological examination reveals no gross focal deficit - Labs CBC & Chem 7: 07/08/18 06:47 07/08/18 06:47 Labs: Abnormal Lab Results - Last 24 Hours (Table) 07/08/18 07/08/18 07/08/18 Range/Units 06:47 06:47 06:47 Hgb 10.7 L (11.4-16.0) gm/dL Hct 33.8 L (34.0-46.0) % MCV 79.1 L (80.0-100.0) fL MCH 24.9 L (25.0-35.0) pg Lymphocytes # 0.7 L (1.0-4.8) k/uL APTT 37.0 H (22.0-30.0) sec BUN 18 H (7-17) mg/dL Creatinine 1.22 H (0.52-1.04) mg/dL Glucose 156 H (74-99) mg/dL Assessment and Plan Plan: #1 episode of chest pain with known history of coronary artery disease and recent angioplasty and stent placement to the right coronary artery on 2017 patient was evaluated by cardiology no intervention recommended at this time #2 shortness of breath possible COPD exacerbation, patient was started on IV steroids and inhaled bronchodilators she is feeling better today, chest x-ray on presentation was normal. #3 underlying history of hypertension well-controlled on current medications continue. #4 underlying history of hyperlipidemia maintained on Pravachol 80 mg daily continue #5 microcytic anemia hemoglobin on presentation 9.2 MCV 79.4 will check iron level #6 acute kidney injury BUN 24 creatinine 1.37 on presentation improving today BUN is 18 and creatinine 1.22 will continue to monitor #7 consult physical therapy for increased ambulation Patient is improving possible discharge to home in the next 1-2 days
[2018-07-08] MEDS: HEPARIN SOD,PORK IN 0.45% NACL 25,000 UNIT in 0.45% NACL 1 250ML.BAG IV SCH (16:23)
[2018-07-08 16:55] LABS: Iron Saturation 5.36 (12.00-45.00)
[2018-07-08] MEDS: FAMOTIDINE 20 MG TAB PO SCH (22:02)
[2018-07-08] MEDS: amLODIPine 5 MG TAB PO SCH (22:02)
[2018-07-08] MEDS: PRAVASTATIN SODIUM 80 MG TAB PO SCH (22:02)
[2018-07-08] MEDS: LORATADINE 10 MG TAB PO SCH (22:02)
[2018-07-09] MEDS: methylPREDNISolone SOD SUCCI 125 MG/2 ML VIAL IV SCH ×4 (00:35→18:41)
[2018-07-09] MEDS: TEMAZEPAM 15 MG CAP PO PRN (00:42)
[2018-07-09] MEDS: ALBUTEROL NEBULIZED 2.5 MG/3 ML INHALATION PRN ×4 (00:47→19:16)
[2018-07-09 07:15] LABS: Glucose,Whole Blood 146 mg/dL (75-99)
[2018-07-09 08:11] LABS: Basophils % (A) 0 %; Eosinophils % (A) 0 %; HCT 30.7 % (34.0-46.0); HGB 9.5 gm/dL (11.4-16.0); Hypochromasia Moderate; Lymphocytes % (A) 6 %; MCH 24.6 pg (25.0-35.0); MCHC 31.1 g/dL (31.0-37.0); MCV 79.2 fL (80.0-100.0); Mean Platelet Volume 8.1; Monocytes # (A) 0.3 k/uL (0-1.0); Monocytes % (A) 2 %; Neutrophils % (A) 91 %; Platelet Count 231 k/uL (150-450); RBC 3.88 m/uL (3.80-5.40); WBC 15.4 k/uL (3.8-10.6)
[2018-07-09] MEDS: BUDESONIDE 0.5 MG/2 ML NEBU INHALATION SCH ×2 (08:36→19:16)
[2018-07-09 08:41] LABS: Albumin 3.4 g/dL (3.5-5.0); Calcium 8.7 mg/dL (8.4-10.2); Potassium 3.8 mmol/L (3.5-5.1); Total Bilirubin 0.3 mg/dL (0.2-1.3); Total Protein 5.8 g/dL (6.3-8.2)
[2018-07-09] MEDS: PANTOPRAZOLE 40 MG TABLET PO SCH (08:56)
[2018-07-09] MEDS: ISOSORBIDE MONONITRATE ER 60 MG TAB.ER.24H PO SCH (08:57)
[2018-07-09] MEDS: CLOPIDOGREL 75 MG TAB PO SCH (08:57)
[2018-07-09] MEDS: ASPIRIN 325 MG TAB PO SCH (08:57)
[2018-07-09] MEDS: CARVEDILOL 12.5 MG TAB PO SCH ×2 (08:58→18:41)
[2018-07-09] MEDS: FUROSEMIDE 20 MG TAB PO SCH ×2 (08:58→16:17)
[2018-07-09 12:18] LABS: Glucose,Whole Blood 129 mg/dL (75-99)
--- NOTE | 2018-07-09 14:44 | P.PN ---
Milana Fernandes is an 87-year-old female patient of Dr. Hutson who was admitted to [facility] on 07/06/2018 patient was seen by Dr. Bean [place] and Dr. Marek Pena on 07/06/2018 and 07/07/2018 during my absence. I am starting to take care of patient today. Patient initially presented to [facility] with a chief complaint of chest pain she describes a sharp pain in the middle of her chest radiating to the back between her shoulder blades. She had minimal elevation in troponin and was admitted to intensive care unit. Patient recently had angioplasty and stent placement to the right coronary artery on 06/28/2018 Patient was seen and examined by myself on 07/08/2018 she is alert and oriented 3 in no apparent distress she is sitting up in a chair she denies any chest pain at this time she is complaining of shortness of breath yesterday she was evaluated by Dr. Violette Pena and had significant bronchospasm and was started on IV steroids and inhaled bronchodilators, patient stated that she was never diagnosed with COPD or asthma however she has a prolonged history of smoking she states that she smoked half a pack per day for about 40 years she quit 25 years ago. Patient denies any cough or any sputum production there is no nausea or vomiting no abdominal pain no diarrhea and no urinary symptoms. On 07/09/2018 patient was seen and examined on the medical floor she is alert and oriented 3 in no apparent distress she is still complaining of shortness of breath with minimal activity otherwise she denies any complaints there is no fever or chills no headache no dizziness no chest pain no cough no nausea or vomiting no abdominal pain no diarrhea and no urinary symptoms. Objective - Vital Signs Vital signs: Vital Signs Temp 97.8 F 07/09/18 08:55 Pulse 76 07/09/18 12:19 Resp 16 07/09/18 08:55 BP 197/80 07/09/18 08:55 Pulse Ox 97 07/09/18 08:55 Intake & Output 07/08/18 07/09/18 07/09/18 18:59 06:59 18:59 Intake Total 1450.000 0 618.985 Balance 1450.000 0 618.985 Intake: Intake, IV Titration 250.000 202.985 Amount Heparin Sod,Pork in 0.45% 250.000 202.985 NaCl 25,000 unit In 0.45 % NaCl 1 250ml.bag @ 12 UNITS/KG/HR 8.32 mls/hr IV .Q24H [facility] Rx#: [id number] Oral 1200 0 416 Other: # Voids 2 1 - Exam In general patient is alert and oriented 3 in no apparent distress HEENT head normocephalic and atraumatic Neck is supple no JVD no goiter no lymphadenopathy Chest exam reveals a few scattered crackles no wheezing Cardiac exam reveals regular heart sounds S1 and S2 no gallops no murmurs Abdomen is soft nontender no organomegaly with normal bowel sounds Extremity exam reveals minimal edema no cyanosis or clubbing Neurological examination reveals no gross focal deficit - Labs CBC & Chem 7: 07/09/18 07:11 07/09/18 07:11 Labs: Abnormal Lab Results - Last 24 Hours (Table) 07/08/18 07/08/18 07/09/18 Range/Units 06:47 14:21 07:02 WBC (3.8-10.6) k/uL Hgb (11.4-16.0) gm/dL Hct (34.0-46.0) % MCV (80.0-100.0) fL MCH (25.0-35.0) pg Neutrophils # (1.3-7.7) k/uL APTT 74.8 H (22.0-30.0) sec BUN (7-17) mg/dL Creatinine (0.52-1.04) mg/dL Glucose (74-99) mg/dL POC Glucose (mg/dL) 146 H (75-99) mg/dL Iron 20 L (50-170) ug/dL Iron Saturation 5.36 L (12.00-45.00) Total Protein (6.3-8.2) g/dL Albumin (3.5-5.0) g/dL 07/09/18 07/09/18 07/09/18 Range/Units 07:11 07:11 07:11 WBC 15.4 H (3.8-10.6) k/uL Hgb 9.5 L (11.4-16.0) gm/dL Hct 30.7 L (34.0-46.0) % MCV 79.2 L (80.0-100.0) fL MCH 24.6 L (25.0-35.0) pg Neutrophils # 14.0 H (1.3-7.7) k/uL APTT 51.7 H (22.0-30.0) sec BUN 27 H (7-17) mg/dL Creatinine 1.32 H (0.52-1.04) mg/dL Glucose 140 H (74-99) mg/dL POC Glucose (mg/dL) (75-99) mg/dL Iron (50-170) ug/dL Iron Saturation (12.00-45.00) Total Protein 5.8 L (6.3-8.2) g/dL Albumin 3.4 L (3.5-5.0) g/dL 07/09/18 Range/Units 12:07 WBC (3.8-10.6) k/uL Hgb (11.4-16.0) gm/dL Hct (34.0-46.0) % MCV (80.0-100.0) fL MCH (25.0-35.0) pg Neutrophils # (1.3-7.7) k/uL APTT (22.0-30.0) sec BUN (7-17) mg/dL Creatinine (0.52-1.04) mg/dL Glucose (74-99) mg/dL POC Glucose (mg/dL) 129 H (75-99) mg/dL Iron (50-170) ug/dL Iron Saturation (12.00-45.00) Total Protein (6.3-8.2) g/dL Albumin (3.5-5.0) g/dL Assessment and Plan Plan: #1 episode of chest pain with known history of coronary artery disease and recent angioplasty and stent placement to the right coronary artery on 2017 patient was evaluated by cardiology no intervention recommended at this time. Will discontinue IV heparin and place patient on Lovenox subcu for DVT prophylaxis #2 shortness of breath possible COPD exacerbation, patient was started on IV steroids and inhaled bronchodilators she is feeling better today, chest x-ray on presentation was normal. #3 underlying history of hypertension well-controlled on current medications continue. #4 underlying history of hyperlipidemia maintained on Pravachol 80 mg daily continue #5 microcytic anemia hemoglobin on presentation 9.2 MCV 79.4 will check iron level #6 acute kidney injury BUN 24 creatinine 1.37 on presentation improving today BUN is 18 and creatinine 1.22 will continue to monitor #7 consult physical therapy for increased ambulation Patient is improving possible discharge to home in the next 1-2 days
[2018-07-09 17:36] LABS: Glucose,Whole Blood 135 mg/dL (75-99)
[2018-07-09] MEDS: LORATADINE 10 MG TAB PO SCH (21:26)
[2018-07-09] MEDS: PRAVASTATIN SODIUM 80 MG TAB PO SCH (21:26)
[2018-07-09] MEDS: amLODIPine 5 MG TAB PO SCH (21:27)
[2018-07-09] MEDS: FAMOTIDINE 20 MG TAB PO SCH (21:27)
[2018-07-10] MEDS: methylPREDNISolone SOD SUCCI 125 MG/2 ML VIAL IV SCH ×5 (02:24→23:38)
[2018-07-10] MEDS: BUDESONIDE 0.5 MG/2 ML NEBU INHALATION SCH ×2 (07:49→20:07)
[2018-07-10] MEDS: ALBUTEROL NEBULIZED 2.5 MG/3 ML INHALATION PRN (07:49)
[2018-07-10] MEDS: CLOPIDOGREL 75 MG TAB PO SCH (08:51)
[2018-07-10] MEDS: CARVEDILOL 12.5 MG TAB PO SCH ×2 (08:51→17:10)
[2018-07-10] MEDS: ASPIRIN 325 MG TAB PO SCH (08:51)
[2018-07-10] MEDS: ISOSORBIDE MONONITRATE ER 60 MG TAB.ER.24H PO SCH (08:51)
[2018-07-10] MEDS: FUROSEMIDE 20 MG TAB PO SCH ×2 (08:51→17:10)
[2018-07-10] MEDS: PANTOPRAZOLE 40 MG TABLET PO SCH (08:51)
[2018-07-10 08:59] LABS: Basophils % (A) 0 %; Eosinophils % (A) 0 %; HCT 32.3 % (34.0-46.0); HGB 9.9 gm/dL (11.4-16.0); Hypochromasia Moderate; Lymphocytes # (A) 0.7 k/uL (1.0-4.8); Lymphocytes % (A) 4 %; MCH 23.7 pg (25.0-35.0); MCHC 30.5 g/dL (31.0-37.0); MCV 77.8 fL (80.0-100.0); Monocytes # (A) 0.3 k/uL (0-1.0); Monocytes % (A) 2 %; Neutrophils # (A) 14.9 k/uL (1.3-7.7); Neutrophils % (A) 93 %; Platelet Count 242 k/uL (150-450); RBC 4.16 m/uL (3.80-5.40)
[2018-07-10] MEDS ORDERED: ENOXAPARIN 40 MG/0.4 ML SYRINGE SQ SCH (09:00)
--- NOTE | 2018-07-10 12:01 | P.PN ---
Subjective Progress Note Date: 07/10/18 Cammie Fernandes is an 87-year-old female patient of Dr. Hutson who was admitted to [facility] on 07/06/2018 patient was seen by Dr. Bean [place] and Dr. Marek Pena on 07/06/2018 and 07/07/2018 during my absence. I am starting to take care of patient today. Patient initially presented to [facility] with a chief complaint of chest pain she describes a sharp pain in the middle of her chest radiating to the back between her shoulder blades. She had minimal elevation in troponin and was admitted to intensive care unit. Patient recently had angioplasty and stent placement to the right coronary artery on 06/28/2018 Patient was seen and examined by myself on 07/08/2018 she is alert and oriented 3 in no apparent distress she is sitting up in a chair she denies any chest pain at this time she is complaining of shortness of breath yesterday she was evaluated by Dr. Violette Pena and had significant bronchospasm and was started on IV steroids and inhaled bronchodilators, patient stated that she was never diagnosed with COPD or asthma however she has a prolonged history of smoking she states that she smoked half a pack per day for about 40 years she quit 25 years ago. Patient denies any cough or any sputum production there is no nausea or vomiting no abdominal pain no diarrhea and no urinary symptoms. On 07/09/2018 patient was seen and examined on the medical floor she is alert and oriented 3 in no apparent distress she is still complaining of shortness of breath with minimal activity otherwise she denies any complaints there is no fever or chills no headache no dizziness no chest pain no cough no nausea or vomiting no abdominal pain no diarrhea and no urinary symptoms. On 07/10/2018 patient is currently sitting up in chair. Patient remains on IV steroids. Patient states some improvement with breathing. Patient does express that she does not feel quite back to baseline. Patient remains on IV steroids. Patient denies chest pain. Patient denies any productive cough. Patient denies nausea vomiting diarrhea. Patient denies any urinary burning or frequency Objective - Vital Signs Vital signs: Vital Signs Temp 97.4 F L 07/10/18 07:55 Pulse 72 07/10/18 08:01 Resp 14 07/10/18 08:00 BP 187/74 07/10/18 07:55 Pulse Ox 98 07/10/18 07:55 Intake & Output 07/09/18 07/10/18 07/10/18 18:59 06:59 18:59 Intake Total 958.985 400 Balance 958.985 400 Weight 63 kg Intake: IV 160 Sodium Chloride 0.9% as 160 carrier at KVO Intake, IV Titration 202.985 Amount Heparin Sod,Pork in 0.45% 202.985 NaCl 25,000 unit In 0.45 % NaCl 1 250ml.bag @ 12 UNITS/KG/HR 8.32 mls/hr IV .Q24H [facility] Rx#: [id number] Oral 596 400 Other: Voiding Method Bedside Commode Bedside Commode # Voids 2 3 - Exam In general patient is alert and oriented 3 in no apparent distress HEENT head normocephalic and atraumatic Neck is supple no JVD no goiter no lymphadenopathy Chest exam reveals a few scattered crackles no wheezing Cardiac exam reveals regular heart sounds S1 and S2 no gallops no murmurs Abdomen is soft nontender no organomegaly with normal bowel sounds Extremity exam reveals minimal edema no cyanosis or clubbing Neurological examination reveals no gross focal deficit - Labs CBC & Chem 7: 07/10/18 07:51 07/09/18 07:11 Labs: Abnormal Lab Results - Last 24 Hours (Table) 07/09/18 07/09/18 07/10/18 Range/Units 12:07 17:24 07:51 WBC 16.0 H (3.8-10.6) k/uL Hgb 9.9 L (11.4-16.0) gm/dL Hct 32.3 L (34.0-46.0) % MCV 77.8 L (80.0-100.0) fL MCH 23.7 L (25.0-35.0) pg MCHC 30.5 L (31.0-37.0) g/dL Neutrophils # 14.9 H (1.3-7.7) k/uL Lymphocytes # 0.7 L (1.0-4.8) k/uL POC Glucose (mg/dL) 129 H 135 H (75-99) mg/dL Assessment and Plan Assessment: #1 episode of chest pain with known history of coronary artery disease and recent angioplasty and stent placement to the right coronary artery on 2017 patient was evaluated by cardiology no intervention recommended at this time. #2 shortness of breath possible COPD exacerbation, patient was started on IV steroids and inhaled bronchodilators she is feeling better today, chest x-ray on presentation was normal. #3 underlying history of hypertension well-controlled on current medications continue. #4 underlying history of hyperlipidemia maintained on Pravachol 80 mg daily continue #5 microcytic anemia hemoglobin on presentation 9.2 MCV 79.4 will check iron level #6 acute kidney injury BUN 24 creatinine 1.37 on presentation improving today BUN is 18 and creatinine 1.22 will continue to monitor #7 consult physical therapy for increased ambulation DVT prophylaxis Lovenox. GI prophylaxis Protonix I performed an examination of the patient and discussed their management with the Nurse Practitioner. I have reviewed the Nurse Practitioner's notes and agree with the documented findings and plan of care Patient is improving possible discharge to home in the next 1-2 days
[2018-07-10] MEDS: FAMOTIDINE 20 MG TAB PO SCH (20:01)
[2018-07-10] MEDS: PRAVASTATIN SODIUM 80 MG TAB PO SCH (20:01)
[2018-07-10] MEDS: LORATADINE 10 MG TAB PO SCH (20:01)
[2018-07-10] MEDS: amLODIPine 5 MG TAB PO SCH (20:02)
[2018-07-10] MEDS: TEMAZEPAM 15 MG CAP PO PRN (20:05)
[2018-07-11] MEDS: methylPREDNISolone SOD SUCCI 125 MG/2 ML VIAL IV SCH ×2 (05:21→11:28)
[2018-07-11 08:12] VITALS: RESP 12
[2018-07-11] MEDS: ALBUTEROL NEBULIZED 2.5 MG/3 ML INHALATION PRN (08:18)
[2018-07-11] MEDS: BUDESONIDE 0.5 MG/2 ML NEBU INHALATION SCH (08:18)
[2018-07-11] MEDS: ASPIRIN 325 MG TAB PO SCH (08:38)
[2018-07-11] MEDS: CLOPIDOGREL 75 MG TAB PO SCH (08:39)
[2018-07-11] MEDS: FUROSEMIDE 20 MG TAB PO SCH ×2 (08:39→15:06)
[2018-07-11] MEDS: CARVEDILOL 12.5 MG TAB PO SCH (08:39)
[2018-07-11] MEDS: ISOSORBIDE MONONITRATE ER 60 MG TAB.ER.24H PO SCH (08:39)
[2018-07-11] MEDS: PANTOPRAZOLE 40 MG TABLET PO SCH (08:39)
[2018-07-11] MEDS: ENOXAPARIN 30 MG/0.3 ML SYRINGE SQ SCH ×2 (08:40→08:42)
[2018-07-11 09:26] LABS: Basophils % (A) 0 %; Eosinophils % (A) 0 %; HGB 10.2 gm/dL (11.4-16.0); Hypochromasia Slight; Lymphocytes # (A) 0.7 k/uL (1.0-4.8); Lymphocytes % (A) 6 %; MCH 24.2 pg (25.0-35.0); MCV 78.1 fL (80.0-100.0); Mean Platelet Volume 8.5; Monocytes # (A) 0.2 k/uL (0-1.0); Monocytes % (A) 2 %; Neutrophils # (A) 11.1 k/uL (1.3-7.7); Neutrophils % (A) 92 %; Platelet Count 246 k/uL (150-450); RBC 4.23 m/uL (3.80-5.40)
[2018-07-11 11:07] LABS: Calcium 8.1 mg/dL (8.4-10.2); Potassium 3.6 mmol/L (3.5-5.1)
--- NOTE | 2018-07-11 14:00 | P.DS ---
Providers Date of admission: 07/06/18 06:22 Expected date of discharge: 07/11/18 Attending physician: Jolene Menard Consults: 07/06/18 06:22 Consult Physician Routine Consulting Provider: Riccardo Carter Consult Reason/Comments: chest pain. elevated troponin Do you want consulting provider notified?: Yes Primary care physician: Gloria Hutson [facility] Course: Discharge diagnosis #1 episode of chest pain with known history of coronary artery disease and recent angioplasty and stent placement to the right coronary artery on 2017 patient was evaluated by cardiology no intervention recommended at this time. #2 shortness of breath possible COPD exacerbation, patient was started on IV steroids and inhaled bronchodilators she is feeling better today, chest x-ray on presentation was normal. Patient discharged home with a prednisone taper and DuoNeb updrafts treatments. Nebulizer machine ordered for patient #3 underlying history of hypertension well-controlled on current medications continue. #4 underlying history of hyperlipidemia maintained on Pravachol 80 mg daily continue #5 iron deficiency anemia: Patient started on ferrous sulfate 325 mg twice a day. Hemoglobin at discharge 10.2 #6 acute on chronic kidney disease, stage III. Creatinine at discharge is 1.48. Lasix will be decreased to 20 mg daily. Recommend checking BMP in 1 week Hospital course Cammie Fernandes is an 87-year-old female patient of Dr. Hutson who was admitted to [facility] on 07/06/2018 patient was seen by Dr. [place] and Dr. Marek Pena on 07/06/2018 and 07/07/2018 during my absence. I am starting to take care of patient today. Patient initially presented to [facility] with a chief complaint of chest pain she describes a sharp pain in the middle of her chest radiating to the back between her shoulder blades. She had minimal elevation in troponin and was admitted to intensive care unit. Patient recently had angioplasty and stent placement to the right coronary artery on 06/28/2018 Patient was seen and examined by myself on 07/08/2018 she is alert and oriented 3 in no apparent distress she is sitting up in a chair she denies any chest pain at this time she is complaining of shortness of breath yesterday she was evaluated by Dr. Violette Pena and had significant bronchospasm and was started on IV steroids and inhaled bronchodilators, patient stated that she was never diagnosed with COPD or asthma however she has a prolonged history of smoking she states that she smoked half a pack per day for about 40 years she quit 25 years ago. Patient denies any cough or any sputum production there is no nausea or vomiting no abdominal pain no diarrhea and no urinary symptoms. On 07/09/2018 patient was seen and examined on the medical floor she is alert and oriented 3 in no apparent distress she is still complaining of shortness of breath with minimal activity otherwise she denies any complaints there is no fever or chills no headache no dizziness no chest pain no cough no nausea or vomiting no abdominal pain no diarrhea and no urinary symptoms. On 07/10/2018 patient is currently sitting up in chair. Patient remains on IV steroids. Patient states some improvement with breathing. Patient does express that she does not feel quite back to baseline. Patient remains on IV steroids. Patient denies chest pain. Patient denies any productive cough. Patient denies nausea vomiting diarrhea. Patient denies any urinary burning or frequency 07/11/2018 patient shortness of breath has improved. She has been up and ambulating in the hallway. There is possibility of a new diagnosis of COPD. We 'll have her follow-up with pulmonary service in the outpatient setting. Patient has been set up to continue nebulizer treatments at home with home care. And I will continue prednisone taper. Patient also started on iron during this admission for her iron deficiency anemia. Total iron level was 20. Hemoglobin at discharge is 10.2. Recommend checking a CBC and BMP in 1 week to follow-up on her anemia and kidney functions. Lasix decreased to 20 mg daily from twice a day due to the elevated creatinine. Patient's symptoms have improved. She is medically stable for discharge. She'll follow-up with cardiology and pulmonary service in the outpatient setting. Also have her follow-up with her PCP in 1 week. Please refer to chart for any further details. I performed an examination of the patient and discussed their management with the physician Alteration Worker. I have reviewed the Physician Alteration Worker's notes and agree with the documented findings and plan of care Patient Condition at Discharge: Stable Plan - Discharge Summary Discharge Rx Participant: No New Discharge Prescriptions: New Albuterol Inhaler [Ventolin Hfa Inhaler] 1 - 2 puff INHALATION RT-Q6H PRN #1 inhaler PRN Reason: Shortness Of Breath Ferrous Sulfate [Iron (65 MG Elemental)] 325 mg PO BID #60 tab Furosemide [Lasix] 20 mg PO DAILY #30 tab Isosorbide Mononitrate ER [Imdur] 60 mg PO DAILY tab.er.24h predniSONE 10 mg PO DIRECTED #30 tab Ipratropium-Albuterol Nebulize [Duoneb 0.5 mg-3 mg/3 ml Soln] 3 ml INHALATION QID #1 box Isosorbide Mononitrate ER [Imdur] 60 mg PO DAILY #30 tab Continue Cetirizine HCl [Zyrtec] 10 mg PO HS Atenolol [Tenormin] 25 mg PO BID #60 tab Omeprazole [PriLOSEC] 20 mg PO AC-BRKFST Ranitidine HCl [Zantac] 300 mg PO HS amLODIPine [Norvasc] 5 mg PO HS #30 tab Aspirin 81 mg PO DAILY #30 chew Atorvastatin [Lipitor] 40 mg PO HS #30 tab Clopidogrel [Plavix] 75 mg PO DAILY #30 tab Nitroglycerin Sl Tabs [Nitrostat] 0.4 mg SUBLINGUAL Q5M PRN #25 tab PRN Reason: Chest Pain Discharge Medication List Cetirizine HCl [Zyrtec] 10 mg PO HS 07/08/14 [History] Atenolol [Tenormin] 25 mg PO BID #60 tab 03/06/16 [Rx] Omeprazole [PriLOSEC] 20 mg PO AC-BRKFST 05/28/17 [History] Ranitidine HCl [Zantac] 300 mg PO HS 05/05/18 [History] Aspirin 81 mg PO DAILY #30 chew 06/29/18 [Rx] Atorvastatin [Lipitor] 40 mg PO HS #30 tab 06/29/18 [Rx] Clopidogrel [Plavix] 75 mg PO DAILY #30 tab 06/29/18 [Rx] Nitroglycerin Sl Tabs [Nitrostat] 0.4 mg SUBLINGUAL Q5M PRN #25 tab 06/29/18 [Rx ] amLODIPine [Norvasc] 5 mg PO HS #30 tab 06/29/18 [Rx] Albuterol Inhaler [Ventolin Hfa Inhaler] 1 - 2 puff INHALATION RT-Q6H PRN #1 inhaler 07/11/18 [Rx] Ferrous Sulfate [Iron (65 MG Elemental)] 325 mg PO BID #60 tab 07/11/18 [Rx] Furosemide [Lasix] 20 mg PO DAILY #30 tab 07/11/18 [Rx] Ipratropium-Albuterol Nebulize [Duoneb 0.5 mg-3 mg/3 ml Soln] 3 ml INHALATION QID #1 box 07/11/18 [Rx] Isosorbide Mononitrate ER [Imdur] 60 mg PO DAILY tab.er.24h 07/11/18 [Rx] Isosorbide Mononitrate ER [Imdur] 60 mg PO DAILY #30 tab 07/11/18 [Rx] predniSONE 10 mg PO DIRECTED #30 tab 07/11/18 [Rx] Follow up Appointment(s)/Referral(s): Torrey Laureano MD [STAFF PHYSICIAN] - 1 Week Gloria Hutson MD [Primary Care Provider] - 1 Week Ambulatory/Diagnostic Orders: Basic Metabolic Panel [LAB.AMB] Time Frame: 1 Week, Location: None Selected Complete Blood Count w/diff [LAB.AMB] Time Frame: 1 Week, Location: None Selected Activity/Diet/Wound Care/Special Instructions: Diet: cardiac Activity: as tolerated Discharge Disposition: HOME WITH HOME HEALTH SERVICES
[2018-07-11 16:13] VITALS: BP 101/66; PULSE 70; TEMP 98.2
[2018-07-11] MEDS ORDERED: FERROUS SULFATE 325 MG TAB PO SCH (21:00)
== END 2018-07-11 17:00 | disposition home or self-care (01) | DRG 191 ==
LOC: EC 04:11 → 2SICU 06:22 → 4SSUR 07-07 18:28
PROVIDERS: ADMIT Internal Medicine; ATTEND Internal Medicine
DX: J44.1 Chronic obstructive pulmonary disease with (acute) exacerbation (principal); N17.9 Acute kidney failure, unspecified; I13.10 Hypertensive heart and chronic kidney disease without heart failure, with stage 1 through stage 4 chronic kidney disease, or unspecified chronic kidney disease; R07.9 Chest pain, unspecified; D50.9 Iron deficiency anemia, unspecified; E78.5 Hyperlipidemia, unspecified; I25.10 Atherosclerotic heart disease of native coronary artery without angina pectoris; I25.2 Old myocardial infarction; J98.01 Acute bronchospasm; K21.9 Gastro-esophageal reflux disease without esophagitis; N18.3 Chronic kidney disease, stage 3 (moderate); I83.90 Asymptomatic varicose veins of unspecified lower extremity; M19.90 Unspecified osteoarthritis, unspecified site; R77.9 Abnormality of plasma protein, unspecified; Z79.02 Long term (current) use of antithrombotics/antiplatelets; Z79.82 Long term (current) use of aspirin; Z79.899 Other long term (current) drug therapy; Z96.641 Presence of right artificial hip joint; Z95.5 Presence of coronary angioplasty implant and graft; Z87.891 Personal history of nicotine dependence; Z90.49 Acquired absence of other specified parts of digestive tract; Z98.42 Cataract extraction status, left eye; Z98.41 Cataract extraction status, right eye; Z96.1 Presence of intraocular lens; Z82.49 Family history of ischemic heart disease and other diseases of the circulatory system
CPT/HCPCS: 36415; 71046; 80048; 80053; 80061; 82550; 82553; 82728; 83540; 83550; 83735; 84100; 84484; 85025; 85610; 85730; 93005; 93306; 94640; 94760; 96365; 96376; 99291

== ENCOUNTER → 2018-07-17 | Outpatient (CLI) | payer MEDICARE, OTHER ==
[2018-07-17 12:23] LABS: Basophils % (A) 0 %; Eosinophils # (A) 0.2 k/uL (0-0.7); Eosinophils % (A) 1 %; HCT 34.6 % (34.0-46.0); Hypochromasia Moderate; Lymphocytes # (A) 2.3 k/uL (1.0-4.8); Lymphocytes % (A) 17 %; MCH 24.9 pg (25.0-35.0); MCHC 31.7 g/dL (31.0-37.0); MCV 78.6 fL (80.0-100.0); Mean Platelet Volume 7.6; Monocytes % (A) 7 %; Neutrophils # (A) 9.7 k/uL (1.3-7.7); Neutrophils % (A) 73 %; Platelet Count 249 k/uL (150-450); RBC 4.41 m/uL (3.80-5.40); RDW 15.4 % (11.5-15.5); WBC 13.3 k/uL (3.8-10.6)
[2018-07-17 21:22] LABS: Anion Gap 9.1 mmol/L (4.00-12.00); Calcium 8.6 mg/dL (8.7-10.3); Carbon Dioxide 29.9 mmol/L (21.6-31.8); Potassium 3.9 mmol/L (3.5-5.5)
== END | disposition home or self-care (01) ==
LOC: LABWHC1 11:14
PROVIDERS: ATTEND Physician Assistant
DX: N17.9 Acute kidney failure, unspecified (principal); D64.9 Anemia, unspecified
CPT/HCPCS: 36415; 80048; 85025

== ENCOUNTER → 2018-10-10 | Outpatient (CLI) | payer MEDICARE, OTHER ==
--- NOTE | 2018-10-10 13:45 | US ---
EXAMINATION TYPE: US bladder DATE OF EXAM: 10/10/2018 COMPARISON: NONE CLINICAL HISTORY: R32 Urinary incontinence. EXAM MEASUREMENTS: Post Void Residual Volume: no residual bladder seen Color Doppler performed to assess ureteral jets. Bilateral Jets seen: no, patient was very uncomfortable with probe pressure. Normal Post Void Residual (less than 50ml): yes, no residual bladder seen. Bladder is not greatly distended without abnormal intraluminal mass. Bladder is not completely anecho ic with mild wall thickening up to 4 mm. Correlate for possible acute cystitis. Finding also may be p roduct of poor distention. After voiding bladder is completely emptied. IMPRESSION: As above.
== END | disposition home or self-care (01) ==
LOC: RADUSWWP 13:11
PROVIDERS: ATTEND Family Medicine
DX: R32 Unspecified urinary incontinence (principal)
CPT/HCPCS: 76857